=== PATIENT | male | born 1960 | race Caucasian/White ===

== ENCOUNTER 2019-05-29 21:54 | Inpatient (IN) ==
[2019-05-30] MEDS ORDERED: Ondansetron ODT 4 MG TAB.RAPDIS SL PRN (01:28)
[2019-05-30] MEDS ORDERED: Acetaminophen 325 MG TABLET PO PRN (01:28)
[2019-05-30] MEDS ORDERED: Naloxone 0.4 MG/ML INJ IVP PRN (01:28)
[2019-05-30] MEDS ORDERED: Dextrose Gel 15 GM/37.5 ML TUBE PO PRN ×2 (01:36)
[2019-05-30] MEDS ORDERED: D5% in Water 1,000 ML IVC PRN (01:36)
[2019-05-30] MEDS ORDERED: *HR* Dextrose 50 % in Water (Syg) 50 ML SYRINGE IVP PRN (01:36)
[2019-05-30 02:45] LABS: Basophils % 0.5 %; Eosinophils % 0.2 %; Hematocrit 46.2 % (37.5-50.1); Hemoglobin 14.8 g/dL (12.9-16.9); Immature Granulocytes % 0.7 % (0-4); Immature Platelets 3.8 % (1.1-6.1); Lymphocytes # 1.8 K/mcL (0.6-4.6); Lymphocytes % 21.2 %; Mean Corpuscular Hemoglobin 27.4 pg (28.0-33.3); Mean Corpuscular Volume 85.4 fL (83.0-100.0); Mean Platelet Volume 10.6 fL (9.4-12.4); Monocytes # 1.3 K/mcL (0.0-1.3); Monocytes % 15.1 %; Neutrophils # 5.3 K/mcL (1.6-8.9); Platelet Count 268 K/mcL (140-400); Red Blood Count 5.41 M/mcL (4.19-5.50); Red Cell Distribution Width 14.5 % (11.5-14.5); Segmented Neutrophils % 62.3 %; White Blood Count 8.5 K/mcL (4.3-11.1)
[2019-05-30 03:02] LABS: Alanine Aminotransferase 32 Units/L (7-52); Albumin 3.4 g/dL (3.5-5.7); Alkaline Phosphatase 65 Units/L (34-104); Aspartate Amino Transferase 22 Units/L (13-39); BUN/Creatinine Ratio 24 (6-26); Bilirubin,Total 0.4 mg/dL (0.3-1.0); Blood Urea Nitrogen 27 mg/dL (6-20); Calcium 8.4 mg/dL (8.6-10.3); Carbon Dioxide 31 mEq/L (23-29); Chloride 102 mEq/L (98-107); Globulin 3.4 g/dL (2.4-3.5); Glucose 106 mg/dL (70-105); Magnesium 1.7 mg/dL (1.6-2.6); Osmolality,Calculated 294 (280-300); Potassium 4.2 mEq/L (3.5-5.1); Sodium 139 mEq/L (136-145); Total Protein 6.8 g/dL (6.4-8.9); eGFR For African Americans > 60 (> 60); eGFR For Non-African Americans > 60 (> 60)
[2019-05-30] MEDS: *HR* Heparin 5,000 UNIT/ML VIAL SQ SCH ×2 (05:15→17:23)
[2019-05-30] MEDS ORDERED: Cefepime HCl 1,000 MG in Water for inj. (sterile) 10 ML IVP SCH (06:00)
[2019-05-30] MEDS ORDERED: Insulin LISPRO 300 UNITS/3 ML VIAL SQ SCH ×2 (07:30→21:00)
[2019-05-30] MEDS ORDERED: Lactulose Oral Soln 20 GM/30 ML UDC PO PRN (07:43)
[2019-05-30] MEDS ORDERED: D5% in 0.9% NACL 1,000 ML IVC SCH (07:45)
[2019-05-30] MEDS ORDERED: Clindamycin 600 MG/50 ML 600 MG/50 ML IV.SOLN IVPB SCH (08:00)
[2019-05-30] MEDS: Insulin LISPRO 300 UNITS/3 ML VIAL SQ SCH ×4 (08:45→19:36)
[2019-05-30] MEDS: lamoTRIgine 100 MG TABLET PO SCH ×3 (08:46→21:48)
[2019-05-30] MEDS: Sennosides 8.6 MG TABLET PO SCH ×3 (08:46→21:47)
[2019-05-30] MEDS: Baclofen 10 MG TABLET PO SCH ×4 (08:46→21:48)
[2019-05-30] MEDS: Ipratropium/Albuterol Neb 3 ML IH SCH ×5 (09:55→23:07)
[2019-05-30 10:02] LABS: ABG Base Excess 7 mEq/L (-2 to 3); ABG HCO3 33 mEq/L (21-27); ABG Oxygen Saturation 95 % (95-98); ABG PCO2 53 mmHg (35-45); ABG PO2 78 mmHg (85-104); ABG TCO2 35 mEq/L (20-26); Blood Gas Modality ASSIST CONTROL
[2019-05-30] MEDS: MetroNIDAZOLE 500 MG/100 ML 500 MG/100 ML BAG IVPB SCH ×2 (13:17→21:47)
[2019-05-30] MEDS ORDERED: MOM Conc 10 ML UD.LIQ PO PRN (15:30)
[2019-05-30] MEDS: Cefepime HCl 2,000 MG in Water for inj. (sterile) 20 ML IVP SCH ×2 (15:49→23:55)
[2019-05-30] MEDS: Docusate Oral Soln 100 MG/10 ML UDC PO SCH (21:47)
[2019-05-31 01:43] LABS: Basophils % 0.7 %; Eosinophils % 0.7 %; Immature Granulocytes % 0.5 % (0-4); Lymphocytes # 1.9 K/mcL (0.6-4.6); Lymphocytes % 31.3 %; Mean Corpuscular HGB Conc 31.8 g/dL (31.6-35.5); Mean Corpuscular Hemoglobin 26.9 pg (28.0-33.3); Mean Corpuscular Volume 84.5 fL (83.0-100.0); Mean Platelet Volume 10.1 fL (9.4-12.4); Monocytes # 0.9 K/mcL (0.0-1.3); Monocytes % 15.6 %; Neutrophils # 3.1 K/mcL (1.6-8.9); Platelet Count 320 K/mcL (140-400); Red Blood Count 5.21 M/mcL (4.19-5.50); Red Cell Distribution Width 14.6 % (11.5-14.5); Segmented Neutrophils % 51.2 %
[2019-05-31 02:03] LABS: BUN/Creatinine Ratio 32 (6-26); Blood Urea Nitrogen 26 mg/dL (6-20); Calcium 8.9 mg/dL (8.6-10.3); Carbon Dioxide 30 mEq/L (23-29); Chloride 103 mEq/L (98-107); Glucose 143 mg/dL (70-105); Magnesium 1.9 mg/dL (1.6-2.6); Osmolality,Calculated 295 (280-300); Phosphorous 2.7 mg/dL (2.7-4.5); Potassium 4.2 mEq/L (3.5-5.1); Sodium 139 mEq/L (136-145); eGFR For African Americans > 60 (> 60); eGFR For Non-African Americans > 60 (> 60)
[2019-05-31] MEDS: Ipratropium/Albuterol Neb 3 ML IH SCH ×5 (04:13→20:51)
[2019-05-31] MEDS: *HR* Heparin 5,000 UNIT/ML VIAL SQ SCH ×2 (04:35→17:18)
[2019-05-31] MEDS: MetroNIDAZOLE 500 MG/100 ML 500 MG/100 ML BAG IVPB SCH ×3 (04:35→22:31)
[2019-05-31] MEDS: Insulin LISPRO 300 UNITS/3 ML VIAL SQ SCH ×4 (07:21→22:30)
[2019-05-31] MEDS: Cefepime HCl 2,000 MG in Water for inj. (sterile) 20 ML IVP SCH ×2 (09:29→15:43)
[2019-05-31] MEDS: Cholecalciferol (D-3) 1,000 UNIT (25MCG) TABLET PO SCH (09:30)
[2019-05-31] MEDS: Docusate Oral Soln 100 MG/10 ML UDC PO SCH ×2 (09:30→22:30)
[2019-05-31] MEDS: Baclofen 10 MG TABLET PO SCH ×3 (09:30→22:30)
[2019-05-31] MEDS: lamoTRIgine 100 MG TABLET PO SCH ×2 (09:30→22:30)
[2019-05-31] MEDS: Sennosides 8.6 MG TABLET PO SCH ×2 (09:30→22:30)
[2019-05-31] MEDS: Clotrimazole 1% CRM 15 GM TUBE TP SCH ×2 (13:58→18:43)
[2019-05-31] MEDS ORDERED: Lactulose Oral Soln 20 GM/30 ML UDC PO PRN (14:55)
[2019-06-01] MEDS: Ipratropium/Albuterol Neb 3 ML IH SCH ×4 (00:12→11:24)
[2019-06-01] MEDS: Cefepime HCl 2,000 MG in Water for inj. (sterile) 20 ML IVP SCH ×2 (00:20→09:06)
[2019-06-01 01:55] LABS: BUN/Creatinine Ratio 31 (6-26); Blood Urea Nitrogen 25 mg/dL (6-20); Calcium 8.9 mg/dL (8.6-10.3); Carbon Dioxide 29 mEq/L (23-29); Chloride 104 mEq/L (98-107); Glucose 118 mg/dL (70-105); Magnesium 1.9 mg/dL (1.6-2.6); Osmolality,Calculated 293 (280-300); Phosphorous 2.7 mg/dL (2.7-4.5); Potassium 4.1 mEq/L (3.5-5.1); Sodium 139 mEq/L (136-145); eGFR For African Americans > 60 (> 60); eGFR For Non-African Americans > 60 (> 60)
[2019-06-01] MEDS: *HR* Heparin 5,000 UNIT/ML VIAL SQ SCH (05:37)
[2019-06-01] MEDS: MetroNIDAZOLE 500 MG/100 ML 500 MG/100 ML BAG IVPB SCH ×2 (05:37→11:13)
[2019-06-01] MEDS: lamoTRIgine 100 MG TABLET PO SCH (09:06)
[2019-06-01] MEDS: Cholecalciferol (D-3) 1,000 UNIT (25MCG) TABLET PO SCH (09:06)
[2019-06-01] MEDS: Docusate Oral Soln 100 MG/10 ML UDC PO SCH (09:06)
[2019-06-01] MEDS: Baclofen 10 MG TABLET PO SCH (09:07)
[2019-06-01] MEDS: Sennosides 8.6 MG TABLET PO SCH (09:07)
[2019-06-01] MEDS ORDERED: MethylPREDNISolone 40 MG/ML VIAL IVP SCH (09:32)
[2019-06-01] MEDS: Insulin LISPRO 300 UNITS/3 ML VIAL SQ SCH ×2 (09:39→11:14)
[2019-06-01] MEDS: Clotrimazole 1% CRM 15 GM TUBE TP SCH (09:47)
[2019-06-01 11:02] VITALS: BP 178/104
== END 2019-06-01 16:37 | DRG 178 ==
LOC: 2NENU → SUATTDRO 05-30 13:26
PROVIDERS: ADMIT Internal Medicine; ATTEND Internal Medicine

== ENCOUNTER 2019-07-18 17:52 | Inpatient (IN) ==
[~2019-07-18 17:52] MED LIST: Aminoglycoside Consult 1 EACH MC ONE
[2019-07-18] MEDS ORDERED: Naloxone 0.4 MG/ML INJ IVP PRN (21:16)
[2019-07-18] MEDS ORDERED: Ondansetron 4 MG/2 ML VIAL IVP PRN (21:16)
[2019-07-18] MEDS ORDERED: D5% in Water 1,000 ML IVC PRN (21:22)
[2019-07-18] MEDS: Norepinephrine 4 MG in 0.9 % Sodium Chloride 250 ML IVC SCH (21:22)
[2019-07-18] MEDS ORDERED: *HR* Dextrose 50 % in Water (Syg) 50 ML SYRINGE IVP PRN (21:22)
[2019-07-18] MEDS ORDERED: Dextrose Gel 15 GM/37.5 ML TUBE PO PRN ×2 (21:22)
[2019-07-18] MEDS ORDERED: 0.9 % Sodium Chloride 1,000 ML IVC SCH (21:30)
[2019-07-18] MEDS: Azithromycin 500 MG in 0.9 % Sodium Chloride 250 ML IVPB SCH (21:52)
[2019-07-18 21:57] LABS: ABG Base Excess 8 mEq/L (-2 to 3); ABG HCO3 31 mEq/L (21-27); ABG Oxygen Saturation 96 % (95-98); ABG PCO2 36 mmHg (35-45); ABG PH 7.54 pH Units (7.32-7.45); ABG PO2 68 mmHg (85-104); ABG TCO2 32 mEq/L (20-26); Blood Gas Modality AF; Blood Gas VT 600 cc
[2019-07-18] MEDS ORDERED: Isovue-370 500 ML BOTTLE IVP ONE (22:57)
[2019-07-18] MEDS: FentaNYL (PF) 1,000 MCG in 0.9 % Sodium Chloride 80 ML IVC SCH (23:02)
[2019-07-18] MEDS: Ipratropium/Albuterol Neb 3 ML IH SCH (23:23)
[2019-07-19] MEDS: Insulin LISPRO 300 UNITS/3 ML VIAL SQ SCH ×4 (00:38→18:12)
[2019-07-19] MEDS: MethylPREDNISolone 40 MG/ML VIAL IVP SCH ×4 (00:39→18:12)
[2019-07-19] MEDS: Cefepime HCl 2,000 MG in 0.9 % Sodium Chloride Mini Bag 100 ML IVPB SCH ×3 (00:39→16:36)
[2019-07-19 01:10] LABS: Adenovirus Not Detected (Not Detect); Bordetella Pertussis Not Detected (Not Detect); Chlamydophila pneumoniae Not Detected (Not Detect); Coronavirus 229E Not Detected (Not Detect); Coronavirus HKU1 Not Detected (Not Detect); Coronavirus NL63 Not Detected (Not Detect); Coronavirus OC43 Not Detected (Not Detect); Human Metapneumovirus Not Detected (Not Detect); Human Rhinovirus/Enterovirus Not Detected (Not Detect); Influenza A Subtype 2009 H1 Not Detected (Not Detect); Influenza B Not Detected (Not Detect); Mycoplasma pneumoniae Not Detected (Not Detect); Parainfluenza Virus 1 Not Detected (Not Detect); Parainfluenza Virus 2 Not Detected (Not Detect); Parainfluenza Virus 3 Not Detected (Not Detect); Parainfluenza Virus 4 Not Detected (Not Detect); Respiratory Syncytial Virus Not Detected (Not Detect)
[2019-07-19] MEDS: Ipratropium/Albuterol Neb 3 ML IH SCH ×6 (03:28→23:20)
[2019-07-19 03:32] LABS: Basophils % 0.2 %; Eosinophils % 0.4 %; Hematocrit 38.8 % (37.5-50.1); Hemoglobin 11.3 g/dL (12.9-16.9); Immature Granulocytes % 0.4 % (0-4); Lymphocytes # 1.1 K/mcL (0.6-4.6); Lymphocytes % 9.4 %; Mean Corpuscular HGB Conc 29.1 g/dL (31.6-35.5); Mean Corpuscular Hemoglobin 26.7 pg (28.0-33.3); Mean Corpuscular Volume 91.7 fL (83.0-100.0); Mean Platelet Volume 10.8 fL (9.4-12.4); Monocytes # 0.4 K/mcL (0.0-1.3); Monocytes % 3.7 %; Neutrophils # 9.6 K/mcL (1.6-8.9); Platelet Count 298 K/mcL (140-400); Red Blood Count 4.23 M/mcL (4.19-5.50); Red Cell Distribution Width 15.8 % (11.5-14.5); Segmented Neutrophils % 85.9 %; White Blood Count 11.2 K/mcL (4.3-11.1)
[2019-07-19 03:33] LABS: INR 1.3; Prothrombin Time 15.2 Seconds (9.4-12.1)
[2019-07-19 03:35] LABS: Activated Partial Thrombo Time 32.5 Seconds (26.0-36.0)
[2019-07-19 03:49] LABS: Alanine Aminotransferase 27 Units/L (7-52); Albumin 2.7 g/dL (3.5-5.7); Albumin/Globulin Ratio 0.9 (1.1-2.2); Alkaline Phosphatase 33 Units/L (34-104); Aspartate Amino Transferase 24 Units/L (13-39); BUN/Creatinine Ratio 40 (6-26); Bilirubin,Total 0.5 mg/dL (0.3-1.0); Blood Urea Nitrogen 28 mg/dL (6-20); Calcium 7.8 mg/dL (8.6-10.3); Carbon Dioxide 30 mEq/L (23-29); Chloride 113 mEq/L (98-107); Globulin 2.9 g/dL (2.4-3.5); Glucose 167 mg/dL (70-105); Osmolality,Calculated 311 (280-300); Sodium 146 mEq/L (136-145); Total Protein 5.6 g/dL (6.4-8.9); eGFR For African Americans > 60 (> 60); eGFR For Non-African Americans > 60 (> 60)
[2019-07-19 04:36] LABS: ABG Base Excess 6 mEq/L (-2 to 3); ABG HCO3 31 mEq/L (21-27); ABG Oxygen Saturation 96 % (95-98); ABG PCO2 47 mmHg (35-45); ABG PH 7.43 pH Units (7.32-7.45); ABG PO2 80 mmHg (85-104); ABG TCO2 33 mEq/L (20-26); Blood Gas Modality AF; Blood Gas VT 500 cc
[2019-07-19] MEDS ORDERED: *HR* Heparin 5,000 UNIT/ML VIAL IVP PRN ×2 (06:30)
[2019-07-19] MEDS ORDERED: *HR* Heparin 5,000 UNIT/ML VIAL IVP ONE (06:30)
[2019-07-19] MEDS ORDERED: Heparin 25,000 UNIT/250 ML D5W 25,000 UNIT/250 ML IV.SOLN IVC SCH (06:30)
[2019-07-19] MEDS ORDERED: Bisacodyl 10 MG RECTAL SUPPOSITORY RC ONE (09:21)
[2019-07-19] MEDS ORDERED: CLEAR EYES NATURAL TEARS 15 ML BOTTLE BOTH EYES PRN (10:50)
[2019-07-19] MEDS: Apixaban 5 MG TABLET PO SCH ×2 (11:24→19:44)
[2019-07-19] MEDS: lamoTRIgine 100 MG TABLET GTUBE SCH ×2 (11:24→19:44)
[2019-07-19] MEDS: Pantoprazole 40 MG VIAL IVP SCH (14:15)
[2019-07-19] MEDS: Chlorhexidine Rinse 15 ML MOUTHWASH MM SCH ×2 (14:15→19:44)
[2019-07-19] MEDS: CLEAR EYES NATURAL TEARS 15 ML BOTTLE BOTH EYES SCH ×3 (14:15→19:44)
[2019-07-19] MEDS ORDERED: Chlorhexidine Rinse 15 ML MOUTHWASH MM SCH (21:00)
[2019-07-19] MEDS: Azithromycin 500 MG in 0.9 % Sodium Chloride 250 ML IVPB SCH (21:37)
[2019-07-19] MEDS: Norepinephrine 4 MG in 0.9 % Sodium Chloride 250 ML IVC SCH (21:38)
[2019-07-20] MEDS: MethylPREDNISolone 40 MG/ML VIAL IVP SCH ×5 (00:31→23:59)
[2019-07-20] MEDS: Cefepime HCl 2,000 MG in 0.9 % Sodium Chloride Mini Bag 100 ML IVPB SCH ×4 (00:31→23:59)
[2019-07-20] MEDS: Insulin LISPRO 300 UNITS/3 ML VIAL SQ SCH ×4 (00:31→16:59)
[2019-07-20] MEDS: CLEAR EYES NATURAL TEARS 15 ML BOTTLE BOTH EYES SCH ×5 (00:32→16:20)
[2019-07-20] MEDS: Ipratropium/Albuterol Neb 3 ML IH SCH ×6 (03:33→23:41)
[2019-07-20 04:50] LABS: Hematocrit 38.4 % (37.5-50.1); Hemoglobin 11.8 g/dL (12.9-16.9); Mean Corpuscular HGB Conc 30.7 g/dL (31.6-35.5); Mean Corpuscular Hemoglobin 27.4 pg (28.0-33.3); Mean Corpuscular Volume 89.1 fL (83.0-100.0); Mean Platelet Volume 10.8 fL (9.4-12.4); Platelet Count 257 K/mcL (140-400); Red Blood Count 4.31 M/mcL (4.19-5.50); Red Cell Distribution Width 15.1 % (11.5-14.5); White Blood Count 8.1 K/mcL (4.3-11.1)
[2019-07-20 04:51] LABS: Immature Granulocytes % 0.4 % (0-4); Lymphocytes # 0.8 K/mcL (0.6-4.6); Monocytes # 0.3 K/mcL (0.0-1.3); Monocytes % 3.6 %
[2019-07-20 04:52] LABS: INR 1.1; Prothrombin Time 12.7 Seconds (9.4-12.1)
[2019-07-20 04:55] LABS: Activated Partial Thrombo Time 31.2 Seconds (26.0-36.0)
[2019-07-20 05:05] LABS: ABG Base Excess 3 mEq/L (-2 to 3); ABG HCO3 30 mEq/L (21-27); ABG Oxygen Saturation 98 % (95-98); ABG PCO2 53 mmHg (35-45); ABG PH 7.36 pH Units (7.32-7.45); ABG PO2 104 mmHg (85-104); ABG TCO2 32 mEq/L (20-26); Blood Gas Modality ASSIST CONTROL; Blood Gas VT 500 cc
[2019-07-20 05:06] LABS: Alanine Aminotransferase 26 Units/L (7-52); Alkaline Phosphatase 34 Units/L (34-104); Aspartate Amino Transferase 18 Units/L (13-39); BUN/Creatinine Ratio 57 (6-26); Bilirubin,Total 0.3 mg/dL (0.3-1.0); Blood Urea Nitrogen 30 mg/dL (6-20); Calcium 8.4 mg/dL (8.6-10.3); Carbon Dioxide 27 mEq/L (23-29); Chloride 110 mEq/L (98-107); Glucose 186 mg/dL (70-105); Osmolality,Calculated 309 (280-300); Potassium 3.7 mEq/L (3.5-5.1); Sodium 144 mEq/L (136-145); eGFR For African Americans > 60 (> 60); eGFR For Non-African Americans > 60 (> 60)
[2019-07-20] MEDS ORDERED: Potassium Chloride Elixir 20 MEQ/15 ML UDC GTUBE ONE (07:18)
[2019-07-20] MEDS ORDERED: *HR* Propofol 1,000 MG/100 ML BOTTLE IVC ONE (07:50)
[2019-07-20] MEDS ORDERED: Chlorhexidine Rinse 15 ML MOUTHWASH ONE (07:50)
[2019-07-20] MEDS ORDERED: MethylPREDNISolone 40 MG/ML VIAL ONE (07:50)
[2019-07-20] MEDS ORDERED: lamoTRIgine 100 MG TABLET ONE (07:50)
[2019-07-20] MEDS ORDERED: Ipratropium/Albuterol Neb 3 ML ONE ×2 (07:50→15:25)
[2019-07-20] MEDS ORDERED: Pantoprazole 40 MG VIAL ONE (07:50)
[2019-07-20] MEDS ORDERED: Potassium Chloride Elixir 20 MEQ/15 ML UDC ONE (07:50)
[2019-07-20] MEDS ORDERED: Apixaban 5 MG TABLET ONE (07:50)
[2019-07-20] MEDS ORDERED: 0.9 % Sodium Chloride (Mini-Bag +) 100 ML IVBAG ONE (07:50)
[2019-07-20] MEDS: FentaNYL (PF) 1,000 MCG in 0.9 % Sodium Chloride 80 ML IVC SCH (10:25)
[2019-07-20] MEDS: Pantoprazole 40 MG VIAL IVP SCH (16:17)
[2019-07-20] MEDS: lamoTRIgine 100 MG TABLET GTUBE SCH (16:17)
[2019-07-20] MEDS: Apixaban 5 MG TABLET PO SCH (16:17)
[2019-07-20] MEDS: Chlorhexidine Rinse 15 ML MOUTHWASH MM SCH (16:17)
[2019-07-20] MEDS ORDERED: *HR* Heparin 5,000 UNIT/ML VIAL IVP PRN ×4 (17:40→21:00)
[2019-07-20] MEDS ORDERED: Benzocaine 20% 12 APPL GEL..GRAM. TP PRN (18:40)
[2019-07-20] MEDS: D5% in 0.45% NACL w KCl 20 MEQ/1,000 ML MLS IVC SCH (18:49)
[2019-07-20 20:08] LABS: Hematocrit 40.1 % (37.5-50.1); Hemoglobin 12.2 g/dL (12.9-16.9); Mean Corpuscular HGB Conc 30.4 g/dL (31.6-35.5); Mean Corpuscular Hemoglobin 27.1 pg (28.0-33.3); Mean Corpuscular Volume 89.1 fL (83.0-100.0); Mean Platelet Volume 11.2 fL (9.4-12.4); Platelet Count 304 K/mcL (140-400); Red Cell Distribution Width 15.2 % (11.5-14.5)
[2019-07-20 20:12] LABS: Heparin anti-factor XA UFH 0.44 IU/mL (0.30-0.70); INR 1.1; Prothrombin Time 12.3 Seconds (9.4-12.1)
[2019-07-20] MEDS ORDERED: *HR* Heparin 5,000 UNIT/ML VIAL IVP ONE (21:00)
[2019-07-20] MEDS ORDERED: Heparin 25,000 UNIT/250 ML D5W 25,000 UNIT/250 ML IV.SOLN IVC SCH ×2 (21:00)
[2019-07-20] MEDS: Azithromycin 500 MG in 0.9 % Sodium Chloride 250 ML IVPB SCH (21:48)
[2019-07-21] MEDS: Insulin LISPRO 300 UNITS/3 ML VIAL SQ SCH ×4 (00:09→17:49)
[2019-07-21] MEDS: Ipratropium/Albuterol Neb 3 ML IH SCH ×5 (04:20→19:36)
[2019-07-21 04:44] LABS: Hematocrit 38.3 % (37.5-50.1); Hemoglobin 11.9 g/dL (12.9-16.9); Immature Granulocytes % 0.5 % (0-4); Lymphocytes # 0.5 K/mcL (0.6-4.6); Lymphocytes % 5.3 %; Mean Corpuscular HGB Conc 31.1 g/dL (31.6-35.5); Mean Corpuscular Hemoglobin 27.6 pg (28.0-33.3); Mean Corpuscular Volume 88.9 fL (83.0-100.0); Mean Platelet Volume 11.5 fL (9.4-12.4); Monocytes # 0.4 K/mcL (0.0-1.3); Monocytes % 4.2 %; Platelet Count 277 K/mcL (140-400); Red Blood Count 4.31 M/mcL (4.19-5.50); Red Cell Distribution Width 15.3 % (11.5-14.5)
[2019-07-21 04:45] LABS: INR 1.2; Prothrombin Time 13.9 Seconds (9.4-12.1)
[2019-07-21 04:55] LABS: Magnesium 1.8 mg/dL (1.6-2.6); Phosphorous 2.1 mg/dL (2.7-4.5)
[2019-07-21 04:56] LABS: Alanine Aminotransferase 23 Units/L (7-52); Albumin 2.8 g/dL (3.5-5.7); Alkaline Phosphatase 32 Units/L (34-104); Aspartate Amino Transferase 15 Units/L (13-39); BUN/Creatinine Ratio 48 (6-26); Bilirubin,Total 0.4 mg/dL (0.3-1.0); Blood Urea Nitrogen 28 mg/dL (6-20); Calcium 8.2 mg/dL (8.6-10.3); Carbon Dioxide 29 mEq/L (23-29); Chloride 110 mEq/L (98-107); Globulin 2.8 g/dL (2.4-3.5); Glucose 193 mg/dL (70-105); Osmolality,Calculated 305 (280-300); Potassium 4.1 mEq/L (3.5-5.1); Sodium 142 mEq/L (136-145); Total Protein 5.6 g/dL (6.4-8.9); eGFR For African Americans > 60 (> 60); eGFR For Non-African Americans > 60 (> 60)
[2019-07-21 05:01] LABS: Activated Partial Thrombo Time 188.9 Seconds (26.0-36.0)
[2019-07-21] MEDS: Dexmedetomidine HCl 400 MCG/100 ML MLS IVC SCH ×2 (06:29→08:23)
[2019-07-21] MEDS: MethylPREDNISolone 40 MG/ML VIAL IVP SCH ×2 (06:30→17:49)
[2019-07-21] MEDS: Pantoprazole 40 MG VIAL IVP SCH (08:05)
[2019-07-21] MEDS: Cefepime HCl 2,000 MG in 0.9 % Sodium Chloride Mini Bag 100 ML IVPB SCH ×2 (08:05→15:41)
[2019-07-21] MEDS: D5% in 0.45% NACL w KCl 20 MEQ/1,000 ML MLS IVC SCH (08:05)
[2019-07-21] MEDS: Benzocaine 20% 12 APPL GEL..GRAM. TP PRN ×2 (09:00→11:49)
[2019-07-21] MEDS ORDERED: Naloxone 0.4 MG/ML INJ IVP PRN (09:26)
[2019-07-21] MEDS ORDERED: *HR* Heparin 5,000 UNIT/ML VIAL IVP PRN ×2 (09:26)
[2019-07-21] MEDS ORDERED: D5% in 0.45% NACL w KCl 20 MEQ/1,000 ML MLS IVC SCH (09:26)
[2019-07-21] MEDS ORDERED: Dextrose Gel 15 GM/37.5 ML TUBE PO PRN ×2 (09:26)
[2019-07-21] MEDS ORDERED: D5% in Water 1,000 ML IVC PRN (09:26)
[2019-07-21] MEDS ORDERED: Ondansetron 4 MG/2 ML VIAL IVP PRN (09:26)
[2019-07-21] MEDS ORDERED: *HR* Dextrose 50 % in Water (Syg) 50 ML SYRINGE IVP PRN (09:26)
[2019-07-21] MEDS: Heparin 25,000 UNIT/250 ML D5W 25,000 UNIT/250 ML IV.SOLN IVC SCH ×2 (10:34→20:42)
[2019-07-21] MEDS ORDERED: MethylPREDNISolone 40 MG/ML VIAL IVP SCH (18:00)
[2019-07-21] MEDS: Azithromycin 500 MG in 0.9 % Sodium Chloride 250 ML IVPB SCH (22:00)
[2019-07-22] MEDS: Insulin LISPRO 300 UNITS/3 ML VIAL SQ SCH ×4 (00:02→18:10)
[2019-07-22] MEDS: Ipratropium/Albuterol Neb 3 ML IH SCH ×7 (00:17→23:48)
[2019-07-22 02:22] LABS: Prothrombin Time 11.7 Seconds (9.4-12.1)
[2019-07-22 02:25] LABS: Activated Partial Thrombo Time 33.7 Seconds (26.0-36.0)
[2019-07-22 02:38] LABS: Basophils % 0.1 %; Hematocrit 41.2 % (37.5-50.1); Hemoglobin 12.8 g/dL (12.9-16.9); Immature Granulocytes % 0.6 % (0-4); Lymphocytes # 0.8 K/mcL (0.6-4.6); Lymphocytes % 7.6 %; Mean Corpuscular HGB Conc 31.1 g/dL (31.6-35.5); Mean Corpuscular Hemoglobin 27.6 pg (28.0-33.3); Mean Corpuscular Volume 88.8 fL (83.0-100.0); Monocytes # 0.5 K/mcL (0.0-1.3); Monocytes % 4.3 %; Neutrophils # 9.7 K/mcL (1.6-8.9); Platelet Count 273 K/mcL (140-400); Red Blood Count 4.64 M/mcL (4.19-5.50); Red Cell Distribution Width 15.6 % (11.5-14.5); Segmented Neutrophils % 87.4 %; White Blood Count 11.1 K/mcL (4.3-11.1)
[2019-07-22 02:41] LABS: Alanine Aminotransferase 27 Units/L (7-52); Alkaline Phosphatase 39 Units/L (34-104); Aspartate Amino Transferase 15 Units/L (13-39); BUN/Creatinine Ratio 50 (6-26); Bilirubin,Total 0.3 mg/dL (0.3-1.0); Blood Urea Nitrogen 24 mg/dL (6-20); Calcium 8.6 mg/dL (8.6-10.3); Carbon Dioxide 27 mEq/L (23-29); Chloride 107 mEq/L (98-107); Glucose 157 mg/dL (70-105); Osmolality,Calculated 293 (280-300); Potassium 4.3 mEq/L (3.5-5.1); Sodium 138 mEq/L (136-145); eGFR For African Americans > 60 (> 60); eGFR For Non-African Americans > 60 (> 60)
[2019-07-22] MEDS: MethylPREDNISolone 40 MG/ML VIAL IVP SCH (06:00)
[2019-07-22] MEDS: Cefepime HCl 2,000 MG in 0.9 % Sodium Chloride Mini Bag 100 ML IVPB SCH ×3 (07:51→16:01)
[2019-07-22] MEDS ORDERED: Pantoprazole 40 MG VIAL IVP SCH (09:00)
[2019-07-22] MEDS ORDERED: Acetaminophen 325 MG TABLET PO PRN (17:36)
[2019-07-22] MEDS: Lactulose Oral Soln 20 GM/30 ML UDC PO SCH (21:09)
[2019-07-22] MEDS: Apixaban 5 MG TABLET PO SCH (21:10)
[2019-07-22] MEDS: Baclofen 10 MG TABLET PO SCH (21:10)
[2019-07-22] MEDS: Sennosides 8.6 MG TABLET PO SCH (21:10)
[2019-07-22] MEDS: Azithromycin 500 MG in 0.9 % Sodium Chloride 250 ML IVPB SCH (21:11)
[2019-07-23] MEDS: Insulin LISPRO 300 UNITS/3 ML VIAL SQ SCH ×5 (00:32→23:45)
[2019-07-23] MEDS: Cefepime HCl 2,000 MG in 0.9 % Sodium Chloride Mini Bag 100 ML IVPB SCH ×4 (00:33→23:48)
[2019-07-23] MEDS: Ipratropium/Albuterol Neb 3 ML IH SCH ×5 (03:47→20:39)
[2019-07-23 05:47] LABS: Hematocrit 39.3 % (37.5-50.1); Hemoglobin 12.2 g/dL (12.9-16.9); Mean Corpuscular Hemoglobin 27.7 pg (28.0-33.3); Mean Corpuscular Volume 89.3 fL (83.0-100.0); Mean Platelet Volume 11.4 fL (9.4-12.4); Platelet Count 236 K/mcL (140-400); Red Cell Distribution Width 15.8 % (11.5-14.5); White Blood Count 8.4 K/mcL (4.3-11.1)
[2019-07-23 06:20] LABS: BUN/Creatinine Ratio 45 (6-26); Blood Urea Nitrogen 25 mg/dL (6-20); Calcium 8.4 mg/dL (8.6-10.3); Carbon Dioxide 28 mEq/L (23-29); Chloride 105 mEq/L (98-107); Glucose 128 mg/dL (70-105); Osmolality,Calculated 288 (280-300); Potassium 4.2 mEq/L (3.5-5.1); Sodium 136 mEq/L (136-145); eGFR For African Americans > 60 (> 60); eGFR For Non-African Americans > 60 (> 60)
[2019-07-23] MEDS ORDERED: [UNRECOGNIZED DRUG - OTHER] TP SCH (09:00)
[2019-07-23] MEDS ORDERED: 0.9 % Sodium Chloride Mini Bag 100 ML ONE (09:14)
[2019-07-23] MEDS: Apixaban 5 MG TABLET PO SCH ×2 (09:50→22:10)
[2019-07-23] MEDS: Baclofen 10 MG TABLET PO SCH ×3 (09:51→22:09)
[2019-07-23] MEDS: Cholecalciferol (D-3) 1,000 UNIT (25MCG) TABLET PO SCH (09:51)
[2019-07-23] MEDS: Sennosides 8.6 MG TABLET PO SCH ×2 (09:51→22:09)
[2019-07-23] MEDS: MOMETASONE FUROATE TP SCH (09:51)
[2019-07-23] MEDS: Lactulose Oral Soln 20 GM/30 ML UDC PO SCH ×2 (09:51→22:10)
[2019-07-23] MEDS: Multivit/Ca/Min/Fe/FA 1 TAB TABLET PO SCH (09:51)
[2019-07-23] MEDS: lisinopriL 10 MG TABLET PO SCH (09:52)
[2019-07-23] MEDS: predniSONE 20 MG TABLET PO SCH (09:52)
[2019-07-23] MEDS: Ketoconazole 2% CRM 15 GM TUBE TP SCH (10:00)
[2019-07-23] MEDS: Azithromycin 500 MG in 0.9 % Sodium Chloride 250 ML IVPB SCH (22:10)
[2019-07-24] MEDS: Ipratropium/Albuterol Neb 3 ML IH SCH ×4 (00:04→11:15)
[2019-07-24 02:10] LABS: Hematocrit 41.1 % (37.5-50.1); Hemoglobin 12.7 g/dL (12.9-16.9); Mean Corpuscular HGB Conc 30.9 g/dL (31.6-35.5); Mean Corpuscular Hemoglobin 27.1 pg (28.0-33.3); Mean Corpuscular Volume 87.8 fL (83.0-100.0); Mean Platelet Volume 11.4 fL (9.4-12.4); Platelet Count 282 K/mcL (140-400); Red Blood Count 4.68 M/mcL (4.19-5.50); Red Cell Distribution Width 15.9 % (11.5-14.5); White Blood Count 7.9 K/mcL (4.3-11.1)
[2019-07-24 02:26] LABS: BUN/Creatinine Ratio 33 (6-26); Blood Urea Nitrogen 17 mg/dL (6-20); Calcium 8.7 mg/dL (8.6-10.3); Carbon Dioxide 32 mEq/L (23-29); Chloride 104 mEq/L (98-107); Glucose 117 mg/dL (70-105); Osmolality,Calculated 287 (280-300); Potassium 4.3 mEq/L (3.5-5.1); Sodium 137 mEq/L (136-145); eGFR For African Americans > 60 (> 60); eGFR For Non-African Americans > 60 (> 60)
[2019-07-24] MEDS: Insulin LISPRO 300 UNITS/3 ML VIAL SQ SCH ×2 (06:06→11:48)
[2019-07-24] MEDS: Cefepime HCl 2,000 MG in 0.9 % Sodium Chloride Mini Bag 100 ML IVPB SCH (08:51)
[2019-07-24] MEDS: predniSONE 20 MG TABLET PO SCH (08:54)
[2019-07-24] MEDS: lisinopriL 10 MG TABLET PO SCH (08:54)
[2019-07-24] MEDS: Multivit/Ca/Min/Fe/FA 1 TAB TABLET PO SCH (08:54)
[2019-07-24] MEDS: Baclofen 10 MG TABLET PO SCH (08:54)
[2019-07-24] MEDS: Sennosides 8.6 MG TABLET PO SCH (08:54)
[2019-07-24] MEDS: Cholecalciferol (D-3) 1,000 UNIT (25MCG) TABLET PO SCH (08:55)
[2019-07-24] MEDS: Apixaban 5 MG TABLET PO SCH (08:55)
[2019-07-24] MEDS: MOMETASONE FUROATE TP SCH (08:55)
[2019-07-24] MEDS: Lactulose Oral Soln 20 GM/30 ML UDC PO SCH (08:55)
[2019-07-24] MEDS: Ketoconazole 2% CRM 15 GM TUBE TP SCH (09:07)
[2019-07-24 11:01] VITALS: BP 145/94
== END 2019-07-24 12:48 | DRG 871 ==
LOC: ICNU → SUATTDRO 21:16 → 2ANU 07-21 21:10
PROVIDERS: ADMIT Pediatrics; ATTEND Internal Medicine

== ENCOUNTER 2019-07-30 20:45 | Inpatient (IN) ==
[2019-07-30] MEDS ORDERED: CLEAR EYES NATURAL TEARS 15 ML BOTTLE BOTH EYES PRN (22:14)
[2019-07-30] MEDS ORDERED: Naloxone 0.4 MG/ML INJ IVP PRN (22:14)
[2019-07-30] MEDS ORDERED: EPINEPHrine 1 MG in D5% in Water 250 ML IVC SCH (22:30)
[2019-07-30] MEDS ORDERED: Dexmedetomidine HCl 400 MCG/100 ML MLS IVC ONE (22:36)
[2019-07-30] MEDS ORDERED: Vasopressin 40 UNIT in D5% in Water 100 ML IVC SCH (22:45)
[2019-07-30] MEDS: Dexmedetomidine HCl 400 MCG/100 ML MLS IVC SCH (22:47)
[2019-07-30] MEDS: Chlorhexidine Rinse 15 ML MOUTHWASH MM SCH (22:48)
[2019-07-30] MEDS: FentaNYL (PF) 1,000 MCG in 0.9 % Sodium Chloride 80 ML IVC SCH (22:50)
[2019-07-30 22:57] LABS: Basophils % 0.1 %; Hematocrit 40.5 % (37.5-50.1); Hemoglobin 12.4 g/dL (12.9-16.9); Immature Granulocytes % 0.6 % (0-4); Lymphocytes # 1.8 K/mcL (0.6-4.6); Lymphocytes % 7.5 %; Mean Corpuscular HGB Conc 30.6 g/dL (31.6-35.5); Mean Corpuscular Hemoglobin 27.1 pg (28.0-33.3); Mean Corpuscular Volume 88.6 fL (83.0-100.0); Mean Platelet Volume 10.7 fL (9.4-12.4); Monocytes # 2.1 K/mcL (0.0-1.3); Monocytes % 9.1 %; Neutrophils # 19.3 K/mcL (1.6-8.9); Platelet Count 347 K/mcL (140-400); Red Blood Count 4.57 M/mcL (4.19-5.50); Red Cell Distribution Width 16.3 % (11.5-14.5); Segmented Neutrophils % 82.7 %; White Blood Count 23.3 K/mcL (4.3-11.1)
[2019-07-30] MEDS ORDERED: Vancomycin (wt based) 1,000 MG VIAL IVPB SCH (23:00)
[2019-07-30] MEDS ORDERED: 0.9 % Sodium Chloride 1,000 ML IV SCH (23:00)
[2019-07-30] MEDS: MetroNIDAZOLE 500 MG/100 ML 500 MG/100 ML BAG IVPB SCH (23:01)
[2019-07-30] MEDS: Norepinephrine 4 MG in 0.9 % Sodium Chloride 250 ML IVC SCH (23:02)
[2019-07-30] MEDS ORDERED: Isovue-370 500 ML BOTTLE IVP ONE ×2 (23:08→23:14)
[2019-07-30] MEDS ORDERED: Dextrose Gel 15 GM/37.5 ML TUBE PO PRN ×2 (23:13)
[2019-07-30] MEDS ORDERED: *HR* Dextrose 50 % in Water (Syg) 50 ML SYRINGE IVP PRN (23:13)
[2019-07-30] MEDS ORDERED: D5% in Water 1,000 ML IVC PRN (23:13)
[2019-07-30 23:20] LABS: BUN/Creatinine Ratio 30 (6-26); Blood Urea Nitrogen 35 mg/dL (6-20); Calcium 7.6 mg/dL (8.6-10.3); Carbon Dioxide 26 mEq/L (23-29); Chloride 109 mEq/L (98-107); Glucose 247 mg/dL (70-105); Osmolality,Calculated 304 (280-300); Potassium 3.9 mEq/L (3.5-5.1); Sodium 139 mEq/L (136-145); eGFR For African Americans > 60 (> 60); eGFR For Non-African Americans > 60 (> 60)
[2019-07-31] LABS: ABG Base Excess 4 mEq/L (-2 to 3); ABG HCO3 28 mEq/L (21-27); ABG Oxygen Saturation 96 % (95-98); ABG PCO2 39 mmHg (35-45); ABG PH 7.46 pH Units (7.32-7.45); ABG PO2 78 mmHg (85-104); ABG TCO2 30 mEq/L (20-26); Blood Gas Modality ASSIST CONTROL; Blood Gas VT 500 cc
[2019-07-31] MEDS: Acetaminophen 325 MG TABLET PO PRN ×2 (00:11→11:36)
[2019-07-31] MEDS: CLEAR EYES NATURAL TEARS 15 ML BOTTLE BOTH EYES SCH ×6 (00:11→21:25)
[2019-07-31 00:24] LABS: Bilirubin,Urine Small (Negative); Blood,Urine Large (Negative); Clarity,Urine Turbid (Clear); Color,Urine Dark Yellow (Yellow); Glucose,Urine (UA) 100 mg/dL (Normal); Ketones,Urine Trace mg/dL (Negative); Leukocyte Esterase,Urine Small (Negative); Nitrite,Urine Negative (Negative); Protein,Urine 100 mg/dL (Neg-Trace); Specific Gravity,Urine 1.028 (1.010-1.025); Urobilinogen,Urine Normal (Normal)
[2019-07-31 00:27] LABS: Protein/Creatinine Ratio,Urine 1.29 mg/mg (0.00-0.20)
[2019-07-31 00:29] LABS: Bacteria,Urine None Seen per hpf (None-Few); RBC,Urine 0-3 per hpf (0-3); Squamous Epithelial Cell,Urine Many per lpf (None-Few); WBC,Urine 15-30 per hpf (0-3)
[2019-07-31 00:40] LABS: Calcium Oxalate Crystals,Urine Present
[2019-07-31 00:41] LABS: Hyaline Casts,Urine Few per lpf (None-Few)
[2019-07-31] MEDS: Calcium Gluconate 1gm/50mL 1 GM/50 ML BAG IVPB SCH ×3 (02:04→03:37)
[2019-07-31] MEDS: Lactulose Oral Soln 20 GM/30 ML UDC GTUBE SCH ×3 (02:18→21:34)
[2019-07-31 02:33] LABS: Troponin I 0.07 ng/mL (< 0.04)
[2019-07-31] MEDS: FentaNYL (PF) 1,000 MCG in 0.9 % Sodium Chloride 80 ML IVC SCH (02:52)
[2019-07-31] MEDS: Norepinephrine 4 MG in 0.9 % Sodium Chloride 250 ML IVC SCH (03:54)
[2019-07-31 04:08] LABS: Basophils % 0.2 %; Hematocrit 40.1 % (37.5-50.1); Hemoglobin 12.2 g/dL (12.9-16.9); Immature Granulocytes % 0.5 % (0-4); Lymphocytes # 2.6 K/mcL (0.6-4.6); Lymphocytes % 19.2 %; Mean Corpuscular HGB Conc 30.4 g/dL (31.6-35.5); Mean Corpuscular Hemoglobin 26.9 pg (28.0-33.3); Mean Corpuscular Volume 88.5 fL (83.0-100.0); Mean Platelet Volume 10.8 fL (9.4-12.4); Monocytes % 15.2 %; Neutrophils # 8.6 K/mcL (1.6-8.9); Platelet Count 276 K/mcL (140-400); Red Blood Count 4.53 M/mcL (4.19-5.50); Red Cell Distribution Width 16.5 % (11.5-14.5); Segmented Neutrophils % 64.9 %; White Blood Count 13.3 K/mcL (4.3-11.1)
[2019-07-31 04:26] LABS: Alanine Aminotransferase 27 Units/L (7-52); Albumin 2.7 g/dL (3.5-5.7); Albumin/Globulin Ratio 1.1 (1.1-2.2); Alkaline Phosphatase 33 Units/L (34-104); Aspartate Amino Transferase 23 Units/L (13-39); BUN/Creatinine Ratio 35 (6-26); Bilirubin,Total 0.6 mg/dL (0.3-1.0); Blood Urea Nitrogen 32 mg/dL (6-20); Calcium 8.3 mg/dL (8.6-10.3); Carbon Dioxide 27 mEq/L (23-29); Chloride 111 mEq/L (98-107); Globulin 2.5 g/dL (2.4-3.5); Glucose 171 mg/dL (70-105); Osmolality,Calculated 305 (280-300); Potassium 3.5 mEq/L (3.5-5.1); Sodium 142 mEq/L (136-145); Total Protein 5.2 g/dL (6.4-8.9); eGFR For African Americans > 60 (> 60); eGFR For Non-African Americans > 60 (> 60)
[2019-07-31 04:45] LABS: ABG Base Excess 4 mEq/L (-2 to 3); ABG HCO3 28 mEq/L (21-27); ABG Oxygen Saturation 96 % (95-98); ABG PCO2 40 mmHg (35-45); ABG PH 7.46 pH Units (7.32-7.45); ABG PO2 74 mmHg (85-104); ABG TCO2 29 mEq/L (20-26); Blood Gas Modality ASSIST CONTROL; Blood Gas VT 500 cc
[2019-07-31] MEDS ORDERED: Cefepime HCl 1,000 MG in 0.9 % Sodium Chloride Mini Bag 100 ML IVPB SCH (06:00)
[2019-07-31] MEDS: Dexmedetomidine HCl 400 MCG/100 ML MLS IVC SCH ×3 (06:17→21:34)
[2019-07-31] MEDS: Famotidine 20 MG/2 ML VIAL IVP SCH ×2 (06:24→17:12)
[2019-07-31] MEDS: Chlorhexidine Rinse 15 ML MOUTHWASH MM SCH ×2 (08:19→21:33)
[2019-07-31] MEDS: MetroNIDAZOLE 500 MG/100 ML 500 MG/100 ML BAG IVPB SCH ×2 (08:20→15:03)
[2019-07-31 09:11] LABS: Adenovirus Not Detected (Not Detect); Bordetella Pertussis Not Detected (Not Detect); Chlamydophila pneumoniae Not Detected (Not Detect); Coronavirus 229E Not Detected (Not Detect); Coronavirus HKU1 Not Detected (Not Detect); Coronavirus NL63 Not Detected (Not Detect); Coronavirus OC43 Not Detected (Not Detect); Human Metapneumovirus Not Detected (Not Detect); Human Rhinovirus/Enterovirus Not Detected (Not Detect); Influenza A Subtype 2009 H1 Not Detected (Not Detect); Influenza B Not Detected (Not Detect); Mycoplasma pneumoniae Not Detected (Not Detect); Parainfluenza Virus 1 Not Detected (Not Detect); Parainfluenza Virus 2 Not Detected (Not Detect); Parainfluenza Virus 3 Not Detected (Not Detect); Parainfluenza Virus 4 Not Detected (Not Detect); Respiratory Syncytial Virus Not Detected (Not Detect)
[2019-07-31] MEDS: *HR* Heparin 5,000 UNIT/ML VIAL SQ SCH ×2 (11:47→17:11)
[2019-07-31] MEDS ORDERED: Dexmedetomidine HCl 400 MCG/100 ML MLS IVC ONE (12:47)
[2019-07-31 13:02] LABS: Bilirubin,Urine Small (Negative); Blood,Urine Small (Negative); Clarity,Urine Clear (Clear); Color,Urine Dark Yellow (Yellow); Glucose,Urine (UA) Normal (Normal); Ketones,Urine Trace mg/dL (Negative); Leukocyte Esterase,Urine Trace (Negative); Nitrite,Urine Negative (Negative); Protein,Urine 30 mg/dL (Neg-Trace); Specific Gravity,Urine > 1.030 (1.010-1.025); Urobilinogen,Urine Normal (Normal)
[2019-07-31 13:05] LABS: Bacteria,Urine None Seen per hpf (None-Few); Hyaline Casts,Urine Moderate per lpf (None-Few); Squamous Epithelial Cell,Urine Many per lpf (None-Few)
[2019-07-31] MEDS: Cefepime HCl 2,000 MG in Water for inj. (sterile) 20 ML IVP SCH ×2 (13:53→21:35)
[2019-07-31] MEDS: lamoTRIgine 100 MG TABLET PO SCH (21:34)
[2019-07-31] MEDS: Docusate Oral Soln 100 MG/10 ML UDC GTUBE SCH (21:35)
[2019-08-01] MEDS: Insulin LISPRO 300 UNITS/3 ML VIAL SQ SCH ×5 (00:01→23:11)
[2019-08-01] MEDS: CLEAR EYES NATURAL TEARS 15 ML BOTTLE BOTH EYES SCH ×7 (00:01→23:12)
[2019-08-01] MEDS: MetroNIDAZOLE 500 MG/100 ML 500 MG/100 ML BAG IVPB SCH ×2 (00:04→08:22)
[2019-08-01] MEDS: FentaNYL (PF) 1,000 MCG in 0.9 % Sodium Chloride 80 ML IVC SCH ×3 (00:08→23:13)
[2019-08-01 03:42] LABS: Basophils % 0.2 %; Eosinophils % 0.3 %; Hematocrit 35.4 % (37.5-50.1); Hemoglobin 11.3 g/dL (12.9-16.9); Immature Granulocytes % 0.3 % (0-4); Lymphocytes # 2.2 K/mcL (0.6-4.6); Lymphocytes % 16.8 %; Mean Corpuscular HGB Conc 31.9 g/dL (31.6-35.5); Mean Corpuscular Hemoglobin 28.2 pg (28.0-33.3); Mean Corpuscular Volume 88.3 fL (83.0-100.0); Mean Platelet Volume 10.8 fL (9.4-12.4); Monocytes # 0.8 K/mcL (0.0-1.3); Neutrophils # 10.2 K/mcL (1.6-8.9); Platelet Count 178 K/mcL (140-400); Red Blood Count 4.01 M/mcL (4.19-5.50); Red Cell Distribution Width 16.6 % (11.5-14.5); Segmented Neutrophils % 76.4 %; White Blood Count 13.3 K/mcL (4.3-11.1)
[2019-08-01 04:01] LABS: ABG Base Excess 5 mEq/L (-2 to 3); ABG HCO3 29 mEq/L (21-27); ABG Oxygen Saturation 96 % (95-98); ABG PCO2 39 mmHg (35-45); ABG PH 7.47 pH Units (7.32-7.45); ABG PO2 76 mmHg (85-104); ABG TCO2 30 mEq/L (20-26); Blood Gas Modality ASSIST CONTROL; Blood Gas VT 500 cc
[2019-08-01 04:02] LABS: Alanine Aminotransferase 32 Units/L (7-52); Albumin 2.7 g/dL (3.5-5.7); Albumin/Globulin Ratio 1.2 (1.1-2.2); Alkaline Phosphatase 30 Units/L (34-104); Aspartate Amino Transferase 32 Units/L (13-39); BUN/Creatinine Ratio 50 (6-26); Bilirubin,Total 0.8 mg/dL (0.3-1.0); Blood Urea Nitrogen 33 mg/dL (6-20); Calcium 8.3 mg/dL (8.6-10.3); Carbon Dioxide 29 mEq/L (23-29); Chloride 108 mEq/L (98-107); Globulin 2.3 g/dL (2.4-3.5); Glucose 116 mg/dL (70-105); Osmolality,Calculated 300 (280-300); Potassium 3.6 mEq/L (3.5-5.1); Sodium 141 mEq/L (136-145); Vancomycin,Trough 12 mcg/mL (5-10); eGFR For African Americans > 60 (> 60); eGFR For Non-African Americans > 60 (> 60)
[2019-08-01] MEDS: Cefepime HCl 2,000 MG in Water for inj. (sterile) 20 ML IVP SCH (04:59)
[2019-08-01] MEDS: *HR* Heparin 5,000 UNIT/ML VIAL SQ SCH ×2 (05:04→16:57)
[2019-08-01] MEDS: Famotidine 20 MG/2 ML VIAL IVP SCH ×2 (05:06→16:57)
[2019-08-01] MEDS: Norepinephrine 4 MG in 0.9 % Sodium Chloride 250 ML IVC SCH (05:07)
[2019-08-01] MEDS: Dexmedetomidine HCl 400 MCG/100 ML MLS IVC SCH ×3 (05:15→20:25)
[2019-08-01] MEDS: lamoTRIgine 100 MG TABLET PO SCH ×2 (08:21→20:58)
[2019-08-01] MEDS: Docusate Oral Soln 100 MG/10 ML UDC GTUBE SCH ×2 (08:21→20:57)
[2019-08-01] MEDS: Lactulose Oral Soln 20 GM/30 ML UDC GTUBE SCH ×2 (08:21→20:57)
[2019-08-01] MEDS: Chlorhexidine Rinse 15 ML MOUTHWASH MM SCH ×2 (08:21→20:57)
[2019-08-01] MEDS: predniSONE 10 MG TABLET PO SCH (08:21)
[2019-08-01] MEDS ORDERED: Aminoglycoside Consult 1 EACH MC ONE (09:39)
[2019-08-01] MEDS: Meropenem 1,000 MG in 0.9 % Sodium Chloride Mini Bag 100 ML IVPB SCH ×2 (12:22→20:54)
[2019-08-02] MEDS: Dexmedetomidine HCl 400 MCG/100 ML MLS IVC SCH ×4 (03:19→23:33)
[2019-08-02] MEDS: CLEAR EYES NATURAL TEARS 15 ML BOTTLE BOTH EYES SCH ×6 (03:20→23:32)
[2019-08-02] MEDS: Meropenem 1,000 MG in 0.9 % Sodium Chloride Mini Bag 100 ML IVPB SCH ×3 (03:20→20:58)
[2019-08-02 03:27] LABS: Basophils % 0.1 %; Eosinophils # 0.1 K/mcL (0.0-0.6); Eosinophils % 1.4 %; Hematocrit 33.8 % (37.5-50.1); Hemoglobin 10.9 g/dL (12.9-16.9); Immature Granulocytes % 0.4 % (0-4); Lymphocytes # 1.4 K/mcL (0.6-4.6); Lymphocytes % 13.9 %; Mean Corpuscular HGB Conc 32.2 g/dL (31.6-35.5); Mean Corpuscular Hemoglobin 27.5 pg (28.0-33.3); Mean Corpuscular Volume 85.4 fL (83.0-100.0); Mean Platelet Volume 10.9 fL (9.4-12.4); Monocytes # 0.5 K/mcL (0.0-1.3); Monocytes % 4.5 %; Neutrophils # 8.1 K/mcL (1.6-8.9); Nucleated Red Blood Cells 0.2 /100 WBC (0); Platelet Count 142 K/mcL (140-400); Red Blood Count 3.96 M/mcL (4.19-5.50); Red Cell Distribution Width 16.2 % (11.5-14.5); Segmented Neutrophils % 79.7 %; White Blood Count 10.1 K/mcL (4.3-11.1)
[2019-08-02 03:45] LABS: Alanine Aminotransferase 29 Units/L (7-52); Albumin 2.7 g/dL (3.5-5.7); Albumin/Globulin Ratio 1.2 (1.1-2.2); Alkaline Phosphatase 35 Units/L (34-104); Aspartate Amino Transferase 25 Units/L (13-39); BUN/Creatinine Ratio 54 (6-26); Bilirubin,Total 0.8 mg/dL (0.3-1.0); Blood Urea Nitrogen 30 mg/dL (6-20); Calcium 8.4 mg/dL (8.6-10.3); Carbon Dioxide 28 mEq/L (23-29); Chloride 108 mEq/L (98-107); Globulin 2.2 g/dL (2.4-3.5); Glucose 124 mg/dL (70-105); Osmolality,Calculated 298 (280-300); Potassium 3.4 mEq/L (3.5-5.1); Sodium 140 mEq/L (136-145); Total Protein 4.9 g/dL (6.4-8.9); eGFR For African Americans > 60 (> 60); eGFR For Non-African Americans > 60 (> 60)
[2019-08-02 04:49] LABS: ABG Base Excess 5 mEq/L (-2 to 3); ABG HCO3 28 mEq/L (21-27); ABG Oxygen Saturation 97 % (95-98); ABG PCO2 35 mmHg (35-45); ABG PH 7.52 pH Units (7.32-7.45); ABG PO2 76 mmHg (85-104); ABG TCO2 29 mEq/L (20-26); Blood Gas Modality AF; Blood Gas VT 500 cc
[2019-08-02] MEDS: Insulin LISPRO 300 UNITS/3 ML VIAL SQ SCH ×4 (07:22→23:32)
[2019-08-02] MEDS: Famotidine 20 MG/2 ML VIAL IVP SCH ×2 (07:22→18:14)
[2019-08-02] MEDS: *HR* Heparin 5,000 UNIT/ML VIAL SQ SCH ×2 (07:22→18:14)
[2019-08-02] MEDS: predniSONE 10 MG TABLET PO SCH (08:53)
[2019-08-02] MEDS: Docusate Oral Soln 100 MG/10 ML UDC GTUBE SCH ×2 (08:53→21:10)
[2019-08-02] MEDS: Lactulose Oral Soln 20 GM/30 ML UDC GTUBE SCH ×2 (08:53→21:10)
[2019-08-02] MEDS: Chlorhexidine Rinse 15 ML MOUTHWASH MM SCH ×2 (08:53→21:14)
[2019-08-02] MEDS: lamoTRIgine 100 MG TABLET PO SCH ×2 (08:54→21:07)
[2019-08-02] MEDS ORDERED: Potassium Chloride 40 MEQ, Lidocaine 1% 2 ML in 0.9 % Sodium Chloride 500 ML IVPB ONE (10:52)
[2019-08-02] MEDS: FentaNYL (PF) 1,000 MCG in 0.9 % Sodium Chloride 80 ML IVC SCH (21:08)
[2019-08-02] MEDS: Norepinephrine 4 MG in 0.9 % Sodium Chloride 250 ML IVC SCH (22:48)
[2019-08-03 03:36] LABS: Basophils % 0.2 %; Eosinophils # 0.2 K/mcL (0.0-0.6); Eosinophils % 1.8 %; Hematocrit 36.1 % (37.5-50.1); Hemoglobin 11.4 g/dL (12.9-16.9); Immature Granulocytes % 0.5 % (0-4); Lymphocytes # 2.1 K/mcL (0.6-4.6); Lymphocytes % 19.2 %; Mean Corpuscular HGB Conc 31.6 g/dL (31.6-35.5); Mean Corpuscular Hemoglobin 27.6 pg (28.0-33.3); Mean Corpuscular Volume 87.4 fL (83.0-100.0); Mean Platelet Volume 11.4 fL (9.4-12.4); Monocytes # 0.5 K/mcL (0.0-1.3); Monocytes % 4.4 %; Neutrophils # 8.1 K/mcL (1.6-8.9); Platelet Count 171 K/mcL (140-400); Red Blood Count 4.13 M/mcL (4.19-5.50); Segmented Neutrophils % 73.9 %; White Blood Count 10.9 K/mcL (4.3-11.1)
[2019-08-03 03:56] LABS: Alanine Aminotransferase 30 Units/L (7-52); Albumin 2.8 g/dL (3.5-5.7); Albumin/Globulin Ratio 1.1 (1.1-2.2); Alkaline Phosphatase 41 Units/L (34-104); Aspartate Amino Transferase 22 Units/L (13-39); BUN/Creatinine Ratio 50 (6-26); Bilirubin,Total 0.6 mg/dL (0.3-1.0); Blood Urea Nitrogen 24 mg/dL (6-20); Calcium 8.3 mg/dL (8.6-10.3); Carbon Dioxide 26 mEq/L (23-29); Chloride 106 mEq/L (98-107); Globulin 2.5 g/dL (2.4-3.5); Glucose 133 mg/dL (70-105); Osmolality,Calculated 292 (280-300); Potassium 3.6 mEq/L (3.5-5.1); Sodium 138 mEq/L (136-145); Total Protein 5.3 g/dL (6.4-8.9); eGFR For African Americans > 60 (> 60); eGFR For Non-African Americans > 60 (> 60)
[2019-08-03] MEDS: Meropenem 1,000 MG in 0.9 % Sodium Chloride Mini Bag 100 ML IVPB SCH ×3 (04:09→20:26)
[2019-08-03] MEDS: CLEAR EYES NATURAL TEARS 15 ML BOTTLE BOTH EYES SCH ×6 (04:15→23:11)
[2019-08-03] MEDS: Insulin LISPRO 300 UNITS/3 ML VIAL SQ SCH ×4 (04:27→23:11)
[2019-08-03 04:35] LABS: ABG Base Excess 3 mEq/L (-2 to 3); ABG HCO3 27 mEq/L (21-27); ABG Oxygen Saturation 95 % (95-98); ABG PCO2 43 mmHg (35-45); ABG PH 7.42 pH Units (7.32-7.45); ABG PO2 77 mmHg (85-104); ABG TCO2 29 mEq/L (20-26); Blood Gas Modality VC; Blood Gas VT 500 cc
[2019-08-03] MEDS: *HR* Heparin 5,000 UNIT/ML VIAL SQ SCH ×2 (05:16→17:28)
[2019-08-03] MEDS: Famotidine 20 MG/2 ML VIAL IVP SCH ×2 (05:18→17:28)
[2019-08-03] MEDS: Dexmedetomidine HCl 400 MCG/100 ML MLS IVC SCH ×2 (06:37→13:25)
[2019-08-03] MEDS: Chlorhexidine Rinse 15 ML MOUTHWASH MM SCH ×2 (07:48→21:04)
[2019-08-03] MEDS: Lactulose Oral Soln 20 GM/30 ML UDC GTUBE SCH (07:48)
[2019-08-03] MEDS: predniSONE 10 MG TABLET PO SCH (07:48)
[2019-08-03] MEDS: lamoTRIgine 100 MG TABLET PO SCH ×2 (07:48→20:37)
[2019-08-03] MEDS: Docusate Oral Soln 100 MG/10 ML UDC GTUBE SCH ×2 (07:48→20:37)
[2019-08-03] MEDS: Metoclopramide 10 MG/2 ML VIAL IVP SCH ×3 (12:22→23:21)
[2019-08-03] MEDS: Norepinephrine 4 MG in 0.9 % Sodium Chloride 250 ML IVC SCH (22:13)
[2019-08-03] MEDS: FentaNYL (PF) 1,000 MCG in 0.9 % Sodium Chloride 80 ML IVC SCH (22:13)
[2019-08-04] MEDS: Dexmedetomidine HCl 400 MCG/100 ML MLS IVC SCH ×3 (02:00→14:22)
[2019-08-04] MEDS: Meropenem 1,000 MG in 0.9 % Sodium Chloride Mini Bag 100 ML IVPB SCH ×3 (04:22→19:50)
[2019-08-04] MEDS: CLEAR EYES NATURAL TEARS 15 ML BOTTLE BOTH EYES SCH ×2 (04:29→09:18)
[2019-08-04] MEDS: Famotidine 20 MG/2 ML VIAL IVP SCH ×2 (05:15→17:58)
[2019-08-04] MEDS: Metoclopramide 10 MG/2 ML VIAL IVP SCH ×4 (05:16→23:46)
[2019-08-04] MEDS: *HR* Heparin 5,000 UNIT/ML VIAL SQ SCH ×2 (05:18→17:58)
[2019-08-04] MEDS: Insulin LISPRO 300 UNITS/3 ML VIAL SQ SCH ×3 (05:22→18:00)
[2019-08-04] MEDS: Docusate Oral Soln 100 MG/10 ML UDC GTUBE SCH (09:18)
[2019-08-04] MEDS: lamoTRIgine 100 MG TABLET PO SCH (09:18)
[2019-08-04] MEDS: predniSONE 10 MG TABLET PO SCH (09:18)
[2019-08-04] MEDS ORDERED: Ipratropium/Albuterol Neb 3 ML IH PRN (10:11)
[2019-08-04] MEDS ORDERED: *HR* Dextrose 50 % in Water (Syg) 50 ML SYRINGE IVP PRN (10:11)
[2019-08-04] MEDS ORDERED: Naloxone 0.4 MG/ML INJ IVP PRN (10:11)
[2019-08-04] MEDS ORDERED: D5% in Water 1,000 ML IVC PRN (10:11)
[2019-08-04] MEDS ORDERED: Dextrose Gel 15 GM/37.5 ML TUBE PO PRN ×2 (10:11)
[2019-08-04] MEDS: Chlorhexidine Rinse 15 ML MOUTHWASH MM SCH (10:51)
[2019-08-04] MEDS: MethylPREDNISolone 40 MG/ML VIAL IVP SCH (11:24)
[2019-08-05] MEDS: Insulin LISPRO 300 UNITS/3 ML VIAL SQ SCH ×4 (00:47→17:55)
[2019-08-05] MEDS: Dexmedetomidine HCl 400 MCG/100 ML MLS IVC SCH ×5 (03:16→20:39)
[2019-08-05] MEDS: Meropenem 1,000 MG in 0.9 % Sodium Chloride Mini Bag 100 ML IVPB SCH ×2 (04:19→11:42)
[2019-08-05] MEDS: Famotidine 20 MG/2 ML VIAL IVP SCH ×2 (06:32→18:21)
[2019-08-05] MEDS: *HR* Heparin 5,000 UNIT/ML VIAL SQ SCH ×2 (06:32→18:26)
[2019-08-05] MEDS: MethylPREDNISolone 40 MG/ML VIAL IVP SCH (08:42)
[2019-08-05] MEDS: Metoclopramide 10 MG/2 ML VIAL IVP SCH ×3 (08:42→18:17)
[2019-08-05] MEDS: Baclofen 10 MG TABLET PO SCH ×3 (11:43→22:00)
[2019-08-05] MEDS: lamoTRIgine 100 MG TABLET PO SCH ×2 (11:43→22:00)
[2019-08-05] MEDS ORDERED: MetroNIDAZOLE 500 MG/100 ML 500 MG/100 ML BAG IVPB SCH (16:00)
[2019-08-05] MEDS: Cefepime HCl 2,000 MG in 0.9 % Sodium Chloride Mini Bag 100 ML IVPB SCH (18:26)
[2019-08-05] MEDS ORDERED: levETIRAcetam 250 MG TABLET PO SCH (21:00)
[2019-08-05] MEDS: metroNIDAZOLE 500 MG TABLET PO SCH ×2 (21:51→22:00)
[2019-08-05] MEDS: levETIRAcetam 500 MG/5 ML UDC PO SCH (22:00)
[2019-08-06] MEDS: Insulin LISPRO 300 UNITS/3 ML VIAL SQ SCH ×5 (01:03→22:38)
[2019-08-06] MEDS: Metoclopramide 10 MG/2 ML VIAL IVP SCH ×3 (01:11→15:14)
[2019-08-06] MEDS: Cefepime HCl 2,000 MG in 0.9 % Sodium Chloride Mini Bag 100 ML IVPB SCH ×2 (05:42→17:05)
[2019-08-06] MEDS: *HR* Heparin 5,000 UNIT/ML VIAL SQ SCH ×2 (05:43→17:04)
[2019-08-06] MEDS: Famotidine 20 MG/2 ML VIAL IVP SCH (05:43)
[2019-08-06 06:07] LABS: Hematocrit 35.4 % (37.5-50.1); Hemoglobin 11.4 g/dL (12.9-16.9); Mean Corpuscular HGB Conc 32.2 g/dL (31.6-35.5); Mean Corpuscular Hemoglobin 27.8 pg (28.0-33.3); Mean Corpuscular Volume 86.3 fL (83.0-100.0); Mean Platelet Volume 11.7 fL (9.4-12.4); Platelet Count 234 K/mcL (140-400); Red Cell Distribution Width 15.4 % (11.5-14.5); White Blood Count 7.4 K/mcL (4.3-11.1)
[2019-08-06 06:22] LABS: BUN/Creatinine Ratio 45 (6-26); Blood Urea Nitrogen 17 mg/dL (6-20); Calcium 8.9 mg/dL (8.6-10.3); Carbon Dioxide 30 mEq/L (23-29); Chloride 101 mEq/L (98-107); Glucose 148 mg/dL (70-105); Osmolality,Calculated 288 (280-300); Potassium 3.5 mEq/L (3.5-5.1); Sodium 137 mEq/L (136-145); eGFR For African Americans > 60 (> 60); eGFR For Non-African Americans > 60 (> 60)
[2019-08-06] MEDS: Baclofen 10 MG TABLET PO SCH ×3 (08:25→20:17)
[2019-08-06] MEDS: levETIRAcetam 500 MG/5 ML UDC PO SCH ×2 (08:25→20:17)
[2019-08-06] MEDS: lamoTRIgine 100 MG TABLET PO SCH ×2 (08:26→20:17)
[2019-08-06] MEDS: Dexmedetomidine HCl 400 MCG/100 ML MLS IVC SCH (08:26)
[2019-08-06] MEDS: metroNIDAZOLE 500 MG TABLET PO SCH ×3 (08:26→20:17)
[2019-08-06] MEDS ORDERED: predniSONE 10 MG TABLET PO SCH (09:00)
[2019-08-06] MEDS ORDERED: Bisacodyl 10 MG RECTAL SUPPOSITORY RC ONE (10:47)
[2019-08-06] MEDS ORDERED: *HR* Propofol 200 MG/20 ML VIAL IVP ONE (12:10)
[2019-08-06] MEDS ORDERED: Lidocaine 2% Syringe 100 MG/5 ML IV ONE (12:10)
[2019-08-06] MEDS: *HR* LORazepam 2 MG/ML VIAL IVP PRN (15:14)
[2019-08-06] MEDS: Metoclopramide 10 MG/10 ML UD.LIQ PO SCH (16:33)
[2019-08-06] MEDS: Famotidine 20 MG TABLET PO SCH (20:16)
[2019-08-06] MEDS: polyethylene glycoL 3350 17 GM POWD.PACK PO SCH (20:17)
[2019-08-07] MEDS: Metoclopramide 10 MG/10 ML UD.LIQ PO SCH ×5 (00:02→23:32)
[2019-08-07] MEDS: Dexmedetomidine HCl 400 MCG/100 ML MLS IVC SCH ×2 (02:52→03:38)
[2019-08-07] MEDS: *HR* Heparin 5,000 UNIT/ML VIAL SQ SCH ×2 (05:57→17:03)
[2019-08-07] MEDS: Cefepime HCl 2,000 MG in 0.9 % Sodium Chloride Mini Bag 100 ML IVPB SCH ×2 (05:57→17:01)
[2019-08-07] MEDS ORDERED: 0.9 % Sodium Chloride 250 ML ONE (08:39)
[2019-08-07] MEDS ORDERED: 0.9 % Sodium Chloride 1,000 ML ONE (08:54)
[2019-08-07] MEDS: Baclofen 10 MG TABLET PO SCH ×3 (09:24→20:10)
[2019-08-07] MEDS: levETIRAcetam 500 MG/5 ML UDC PO SCH ×2 (09:24→20:10)
[2019-08-07] MEDS: Famotidine 20 MG TABLET PO SCH ×2 (09:25→20:10)
[2019-08-07] MEDS: lamoTRIgine 100 MG TABLET PO SCH ×2 (09:25→20:10)
[2019-08-07] MEDS: polyethylene glycoL 3350 17 GM POWD.PACK PO SCH ×2 (09:26→20:11)
[2019-08-07] MEDS: Insulin LISPRO 300 UNITS/3 ML VIAL SQ SCH ×4 (09:27→20:41)
[2019-08-07] MEDS: metroNIDAZOLE 500 MG TABLET PO SCH ×3 (09:28→20:10)
[2019-08-07 10:04] LABS: BUN/Creatinine Ratio 35 (6-26); Blood Urea Nitrogen 19 mg/dL (6-20); Calcium 8.7 mg/dL (8.6-10.3); Carbon Dioxide 30 mEq/L (23-29); Chloride 104 mEq/L (98-107); Glucose 164 mg/dL (70-105); Osmolality,Calculated 294 (280-300); Potassium 3.6 mEq/L (3.5-5.1); Sodium 139 mEq/L (136-145); Troponin I < 0.03 ng/mL (< 0.04); eGFR For African Americans > 60 (> 60); eGFR For Non-African Americans > 60 (> 60)
[2019-08-07] MEDS ORDERED: Furosemide 20 MG/2 ML VIAL IVP ONE (14:00)
[2019-08-07] MEDS: Pantoprazole 40 MG VIAL IVP SCH (17:05)
[2019-08-07] MEDS ORDERED: *HR* Metoprolol 5 MG/5 ML VIAL IVP ONE (18:01)
[2019-08-07] MEDS ORDERED: Haloperidol Lactate 5 MG/ML VIAL IVP ONE (18:53)
[2019-08-07] MEDS ORDERED: Acetaminophen IV 1,000 MG/100 ML INFUS..BTL IVPB ONE (21:34)
[2019-08-07] MEDS: *HR* LORazepam 2 MG/ML VIAL IVP PRN (21:59)
[2019-08-08] MEDS: *HR* LORazepam 2 MG/ML VIAL IVP PRN ×2 (00:27→10:32)
[2019-08-08] MEDS: Cefepime HCl 2,000 MG in 0.9 % Sodium Chloride Mini Bag 100 ML IVPB SCH ×2 (05:34→16:55)
[2019-08-08] MEDS: Metoclopramide 10 MG/10 ML UD.LIQ PO SCH (05:35)
[2019-08-08] MEDS: *HR* Heparin 5,000 UNIT/ML VIAL SQ SCH ×2 (05:35→16:55)
[2019-08-08] MEDS: Pantoprazole 40 MG VIAL IVP SCH ×2 (05:52→16:55)
[2019-08-08] MEDS: Insulin LISPRO 300 UNITS/3 ML VIAL SQ SCH ×4 (07:35→23:12)
[2019-08-08] MEDS: polyethylene glycoL 3350 17 GM POWD.PACK PO SCH ×3 (08:00→23:14)
[2019-08-08] MEDS: Baclofen 10 MG TABLET PO SCH ×3 (08:00→22:47)
[2019-08-08] MEDS: lamoTRIgine 100 MG TABLET PO SCH ×2 (08:00→22:47)
[2019-08-08] MEDS: levETIRAcetam 500 MG/5 ML UDC PO SCH ×2 (08:00→22:47)
[2019-08-08] MEDS: metroNIDAZOLE 500 MG TABLET PO SCH ×3 (08:01→22:47)
[2019-08-08] MEDS: Famotidine 20 MG TABLET PO SCH ×2 (08:01→22:47)
[2019-08-08] MEDS ORDERED: Ipratropium 1 PUFF INHALER IH PRN (14:59)
[2019-08-08] MEDS ORDERED: Ipratropium/Albuterol Neb 3 ML IH SCH (16:00)
[2019-08-08] MEDS: predniSONE 10 MG TABLET PO SCH (16:53)
[2019-08-08] MEDS: Ipratropium 1 PUFF INHALER IH SCH ×2 (17:14→22:47)
[2019-08-08] MEDS ORDERED: Metoclopramide 10 MG/10 ML UD.LIQ PO SCH (18:00)
[2019-08-09] MEDS: Ipratropium 1 PUFF INHALER IH SCH ×4 (05:13→21:54)
[2019-08-09] MEDS: Cefepime HCl 2,000 MG in 0.9 % Sodium Chloride Mini Bag 100 ML IVPB SCH ×2 (05:15→18:04)
[2019-08-09] MEDS: Pantoprazole 40 MG VIAL IVP SCH ×2 (05:16→18:04)
[2019-08-09] MEDS: *HR* Heparin 5,000 UNIT/ML VIAL SQ SCH ×2 (05:16→18:05)
[2019-08-09] MEDS: lamoTRIgine 100 MG TABLET PO SCH ×2 (08:13→20:12)
[2019-08-09] MEDS: Insulin LISPRO 300 UNITS/3 ML VIAL SQ SCH ×4 (08:13→20:16)
[2019-08-09] MEDS: predniSONE 10 MG TABLET PO SCH (08:13)
[2019-08-09] MEDS: Baclofen 10 MG TABLET PO SCH ×3 (08:14→20:12)
[2019-08-09] MEDS: Famotidine 20 MG TABLET PO SCH ×2 (08:14→20:12)
[2019-08-09] MEDS: metroNIDAZOLE 500 MG TABLET PO SCH (08:14)
[2019-08-09] MEDS: levETIRAcetam 500 MG/5 ML UDC PO SCH ×2 (08:14→20:13)
[2019-08-09] MEDS: polyethylene glycoL 3350 17 GM POWD.PACK PO SCH ×2 (08:14→20:13)
[2019-08-09 13:28] LABS: BUN/Creatinine Ratio 27 (6-26); Blood Urea Nitrogen 11 mg/dL (6-20); C-Reactive Protein 9 mg/L (Less than 10); Calcium 9.6 mg/dL (8.6-10.3); Carbon Dioxide 35 mEq/L (23-29); Chloride 100 mEq/L (98-107); Glucose 169 mg/dL (70-105); Osmolality,Calculated 293 (280-300); Potassium 4.4 mEq/L (3.5-5.1); Sodium 140 mEq/L (136-145); eGFR For African Americans > 60 (> 60); eGFR For Non-African Americans > 60 (> 60)
[2019-08-09 14:11] LABS: Basophils % 0.3 %; Eosinophils % 0.3 %; Hemoglobin 12.4 g/dL (12.9-16.9); Immature Granulocytes % 0.6 % (0-4); Lymphocytes # 1.2 K/mcL (0.6-4.6); Lymphocytes % 18.3 %; Mean Corpuscular HGB Conc 30.2 g/dL (31.6-35.5); Mean Corpuscular Hemoglobin 27.1 pg (28.0-33.3); Mean Corpuscular Volume 89.7 fL (83.0-100.0); Monocytes # 0.5 K/mcL (0.0-1.3); Monocytes % 7.3 %; Neutrophils # 4.8 K/mcL (1.6-8.9); Platelet Count 330 K/mcL (140-400); Red Blood Count 4.57 M/mcL (4.19-5.50); Red Cell Distribution Width 16.5 % (11.5-14.5); Segmented Neutrophils % 73.2 %; White Blood Count 6.6 K/mcL (4.3-11.1)
[2019-08-09] MEDS: MetroNIDAZOLE 500 MG/100 ML 500 MG/100 ML BAG IVPB SCH ×2 (16:02→23:20)
[2019-08-10 03:49] LABS: Hematocrit 38.3 % (37.5-50.1); Hemoglobin 11.5 g/dL (12.9-16.9); Mean Corpuscular Hemoglobin 26.9 pg (28.0-33.3); Mean Corpuscular Volume 89.5 fL (83.0-100.0); Mean Platelet Volume 11.3 fL (9.4-12.4); Platelet Count 332 K/mcL (140-400); Red Blood Count 4.28 M/mcL (4.19-5.50); Red Cell Distribution Width 16.6 % (11.5-14.5); White Blood Count 6.2 K/mcL (4.3-11.1)
[2019-08-10] MEDS: Ipratropium 1 PUFF INHALER IH SCH ×4 (04:01→20:55)
[2019-08-10 04:08] LABS: BUN/Creatinine Ratio 29 (6-26); Blood Urea Nitrogen 12 mg/dL (6-20); Calcium 9.5 mg/dL (8.6-10.3); Carbon Dioxide 34 mEq/L (23-29); Chloride 99 mEq/L (98-107); Glucose 116 mg/dL (70-105); Magnesium 1.5 mg/dL (1.6-2.6); Osmolality,Calculated 291 (280-300); Potassium 3.6 mEq/L (3.5-5.1); Sodium 140 mEq/L (136-145); eGFR For African Americans > 60 (> 60); eGFR For Non-African Americans > 60 (> 60)
[2019-08-10] MEDS: Cefepime HCl 2,000 MG in 0.9 % Sodium Chloride Mini Bag 100 ML IVPB SCH ×2 (05:07→17:16)
[2019-08-10] MEDS: Pantoprazole 40 MG VIAL IVP SCH ×2 (05:08→17:16)
[2019-08-10] MEDS: *HR* Heparin 5,000 UNIT/ML VIAL SQ SCH ×2 (05:08→17:17)
[2019-08-10] MEDS ORDERED: *HR* LORazepam 2 MG/ML VIAL IVP ONE (05:29)
[2019-08-10] MEDS: Dexmedetomidine HCl 400 MCG/100 ML MLS IVC SCH (07:18)
[2019-08-10] MEDS ORDERED: 0.9 % Sodium Chloride 500 ML IVC ONE (08:11)
[2019-08-10] MEDS: Insulin LISPRO 300 UNITS/3 ML VIAL SQ SCH ×4 (10:13→20:35)
[2019-08-10] MEDS: lamoTRIgine 100 MG TABLET PO SCH ×2 (10:39→20:35)
[2019-08-10] MEDS: predniSONE 10 MG TABLET PO SCH (10:40)
[2019-08-10] MEDS: Baclofen 10 MG TABLET PO SCH ×3 (10:40→20:35)
[2019-08-10] MEDS: Famotidine 20 MG TABLET PO SCH ×2 (10:40→20:35)
[2019-08-10] MEDS: polyethylene glycoL 3350 17 GM POWD.PACK PO SCH ×2 (10:40→20:36)
[2019-08-10] MEDS: levETIRAcetam 500 MG/5 ML UDC PO SCH ×2 (10:40→20:35)
[2019-08-10] MEDS: MetroNIDAZOLE 500 MG/100 ML 500 MG/100 ML BAG IVPB SCH ×2 (11:30→16:16)
[2019-08-10] MEDS: Erythromycin Susp 200 MG/5 ML UDC PO SCH (15:07)
[2019-08-10] MEDS ORDERED: *HR* OxyCODONE Oral Soln 5 MG/5 ML UD.LIQ PO PRN (18:54)
[2019-08-11] MEDS: MetroNIDAZOLE 500 MG/100 ML 500 MG/100 ML BAG IVPB SCH ×4 (00:38→23:52)
[2019-08-11] MEDS: Erythromycin Susp 200 MG/5 ML UDC PO SCH ×4 (00:42→23:52)
[2019-08-11] MEDS: Ipratropium 1 PUFF INHALER IH SCH ×4 (04:21→22:25)
[2019-08-11] MEDS: Pantoprazole 40 MG VIAL IVP SCH ×2 (05:47→16:55)
[2019-08-11] MEDS: *HR* Heparin 5,000 UNIT/ML VIAL SQ SCH ×2 (05:47→16:55)
[2019-08-11] MEDS: Cefepime HCl 2,000 MG in 0.9 % Sodium Chloride Mini Bag 100 ML IVPB SCH ×2 (05:48→17:36)
[2019-08-11] MEDS: polyethylene glycoL 3350 17 GM POWD.PACK PO SCH ×2 (07:54→21:15)
[2019-08-11] MEDS: Famotidine 20 MG TABLET PO SCH ×2 (07:56→21:15)
[2019-08-11] MEDS: Baclofen 10 MG TABLET PO SCH ×3 (07:56→21:15)
[2019-08-11] MEDS: lamoTRIgine 100 MG TABLET PO SCH ×2 (07:56→21:15)
[2019-08-11] MEDS: predniSONE 10 MG TABLET PO SCH (07:56)
[2019-08-11] MEDS: levETIRAcetam 500 MG/5 ML UDC PO SCH ×2 (07:56→21:15)
[2019-08-11] MEDS: Insulin LISPRO 300 UNITS/3 ML VIAL SQ SCH ×4 (07:57→21:06)
[2019-08-11] MEDS ORDERED: Isovue-370 500 ML BOTTLE IVP ONE (20:40)
[2019-08-12] MEDS: Ipratropium 1 PUFF INHALER IH SCH ×5 (03:59→22:03)
[2019-08-12] MEDS: Erythromycin Susp 200 MG/5 ML UDC PO SCH ×3 (06:47→21:20)
[2019-08-12] MEDS: Cefepime HCl 2,000 MG in 0.9 % Sodium Chloride Mini Bag 100 ML IVPB SCH ×2 (06:47→18:13)
[2019-08-12] MEDS: *HR* Heparin 5,000 UNIT/ML VIAL SQ SCH (06:47)
[2019-08-12] MEDS: Pantoprazole 40 MG VIAL IVP SCH ×2 (06:47→17:04)
[2019-08-12 08:49] LABS: BUN/Creatinine Ratio 30 (6-26); Blood Urea Nitrogen 12 mg/dL (6-20); Calcium 9.3 mg/dL (8.6-10.3); Carbon Dioxide 33 mEq/L (23-29); Chloride 100 mEq/L (98-107); Glucose 137 mg/dL (70-105); Osmolality,Calculated 288 (280-300); Potassium 3.9 mEq/L (3.5-5.1); Sodium 138 mEq/L (136-145); eGFR For African Americans > 60 (> 60); eGFR For Non-African Americans > 60 (> 60)
[2019-08-12] MEDS: predniSONE 10 MG TABLET PO SCH (08:58)
[2019-08-12] MEDS: Baclofen 10 MG TABLET PO SCH ×3 (08:58→21:17)
[2019-08-12] MEDS: lamoTRIgine 100 MG TABLET PO SCH ×2 (08:58→21:17)
[2019-08-12] MEDS: Famotidine 20 MG TABLET PO SCH ×2 (08:58→21:17)
[2019-08-12] MEDS: levETIRAcetam 500 MG/5 ML UDC PO SCH ×2 (08:58→21:17)
[2019-08-12] MEDS: Insulin LISPRO 300 UNITS/3 ML VIAL SQ SCH ×4 (08:58→21:35)
[2019-08-12] MEDS: polyethylene glycoL 3350 17 GM POWD.PACK PO SCH ×2 (08:58→21:16)
[2019-08-12] MEDS: MetroNIDAZOLE 500 MG/100 ML 500 MG/100 ML BAG IVPB SCH ×3 (08:58→23:17)
[2019-08-12] MEDS ORDERED: *HR* Heparin 5,000 UNIT/ML VIAL IVP ONE (11:57)
[2019-08-12 13:06] LABS: Heparin anti-factor XA UFH < 0.04 IU/mL (0.30-0.70)
[2019-08-12 13:07] LABS: INR 1.1
[2019-08-12] MEDS: Heparin 25,000 UNIT/250 ML D5W 25,000 UNIT/250 ML IV.SOLN IVC SCH (14:25)
[2019-08-13] MEDS: *HR* LORazepam 2 MG/ML VIAL IVP PRN (01:06)
[2019-08-13] MEDS: Ipratropium 1 PUFF INHALER IH SCH ×4 (04:01→21:50)
[2019-08-13] MEDS: Heparin 25,000 UNIT/250 ML D5W 25,000 UNIT/250 ML IV.SOLN IVC SCH (05:51)
[2019-08-13] MEDS: Cefepime HCl 2,000 MG in 0.9 % Sodium Chloride Mini Bag 100 ML IVPB SCH ×2 (05:52→17:39)
[2019-08-13] MEDS: Pantoprazole 40 MG VIAL IVP SCH (05:53)
[2019-08-13] MEDS: Erythromycin Susp 200 MG/5 ML UDC PO SCH (05:54)
[2019-08-13] MEDS: Insulin LISPRO 300 UNITS/3 ML VIAL SQ SCH ×4 (07:23→21:06)
[2019-08-13] MEDS: MetroNIDAZOLE 500 MG/100 ML 500 MG/100 ML BAG IVPB SCH ×2 (08:28→15:52)
[2019-08-13] MEDS: lamoTRIgine 100 MG TABLET PO SCH ×2 (09:51→20:57)
[2019-08-13] MEDS: levETIRAcetam 500 MG/5 ML UDC PO SCH ×2 (09:51→20:57)
[2019-08-13] MEDS: predniSONE 10 MG TABLET PO SCH (09:51)
[2019-08-14] MEDS: Ipratropium 1 PUFF INHALER IH SCH ×4 (03:16→22:13)
[2019-08-14] MEDS: Cefepime HCl 2,000 MG in 0.9 % Sodium Chloride Mini Bag 100 ML IVPB SCH ×2 (05:06→20:00)
[2019-08-14] MEDS ORDERED: *HR* Metoprolol 5 MG/5 ML VIAL IVP ONE (06:53)
[2019-08-14] MEDS: Insulin LISPRO 300 UNITS/3 ML VIAL SQ SCH ×4 (08:04→21:25)
[2019-08-14] MEDS: levETIRAcetam 500 MG/5 ML UDC PO SCH ×2 (08:04→22:48)
[2019-08-14] MEDS: lamoTRIgine 100 MG TABLET PO SCH ×2 (08:04→21:36)
[2019-08-14] MEDS: MetroNIDAZOLE 500 MG/100 ML 500 MG/100 ML BAG IVPB SCH ×3 (08:05→16:36)
[2019-08-14] MEDS: predniSONE 10 MG TABLET PO SCH (08:05)
[2019-08-14] MEDS: Heparin 25,000 UNIT/250 ML D5W 25,000 UNIT/250 ML IV.SOLN IVC SCH (09:41)
[2019-08-14] MEDS: *HR* Heparin 5,000 UNIT/ML VIAL IVP PRN (21:38)
[2019-08-15] MEDS: MetroNIDAZOLE 500 MG/100 ML 500 MG/100 ML BAG IVPB SCH ×3 (00:33→16:27)
[2019-08-15] MEDS: Ipratropium 1 PUFF INHALER IH SCH ×4 (04:17→22:43)
[2019-08-15] MEDS: *HR* Heparin 5,000 UNIT/ML VIAL IVP PRN ×3 (05:17→20:13)
[2019-08-15] MEDS: Cefepime HCl 2,000 MG in 0.9 % Sodium Chloride Mini Bag 100 ML IVPB SCH ×2 (05:18→20:03)
[2019-08-15] MEDS ORDERED: 0.9 % Sodium Chloride 500 ML IVC ONE (07:39)
[2019-08-15] MEDS: lamoTRIgine 100 MG TABLET PO SCH ×2 (08:36→20:14)
[2019-08-15] MEDS: Insulin LISPRO 300 UNITS/3 ML VIAL SQ SCH ×4 (08:36→21:53)
[2019-08-15] MEDS: predniSONE 10 MG TABLET PO SCH (08:37)
[2019-08-15] MEDS: Heparin 25,000 UNIT/250 ML D5W 25,000 UNIT/250 ML IV.SOLN IVC SCH ×3 (09:10→21:57)
[2019-08-15 09:13] LABS: Hematocrit 37.6 % (37.5-50.1); Hemoglobin 11.9 g/dL (12.9-16.9); Mean Corpuscular HGB Conc 31.6 g/dL (31.6-35.5); Mean Corpuscular Hemoglobin 27.6 pg (28.0-33.3); Mean Corpuscular Volume 87.2 fL (83.0-100.0); Mean Platelet Volume 10.2 fL (9.4-12.4); Platelet Count 365 K/mcL (140-400); Red Blood Count 4.31 M/mcL (4.19-5.50); Red Cell Distribution Width 17.4 % (11.5-14.5)
[2019-08-15 09:15] LABS: White Blood Count 9.9 K/mcL (4.3-11.1)
[2019-08-15 09:32] LABS: BUN/Creatinine Ratio 17 (6-26); Blood Urea Nitrogen 8 mg/dL (6-20); Calcium 9.7 mg/dL (8.6-10.3); Carbon Dioxide 33 mEq/L (23-29); Chloride 98 mEq/L (98-107); Glucose 155 mg/dL (70-105); Osmolality,Calculated 287 (280-300); Potassium 4.2 mEq/L (3.5-5.1); Sodium 138 mEq/L (136-145); eGFR For African Americans > 60 (> 60); eGFR For Non-African Americans > 60 (> 60)
[2019-08-15] MEDS: 0.9 % Sodium Chloride 1,000 ML IVC SCH (16:27)
[2019-08-16] MEDS: MetroNIDAZOLE 500 MG/100 ML 500 MG/100 ML BAG IVPB SCH ×3 (01:04→18:38)
[2019-08-16] MEDS: Ipratropium 1 PUFF INHALER IH SCH ×4 (03:31→22:01)
[2019-08-16] MEDS: Cefepime HCl 2,000 MG in 0.9 % Sodium Chloride Mini Bag 100 ML IVPB SCH ×2 (05:49→19:59)
[2019-08-16] MEDS: 0.9 % Sodium Chloride 1,000 ML IVC SCH ×2 (05:50→12:19)
[2019-08-16] MEDS ORDERED: *HR* Propofol 200 MG/20 ML VIAL IVP ONE (07:01)
[2019-08-16] MEDS ORDERED: Ondansetron 4 MG/2 ML VIAL ONE (07:01)
[2019-08-16] MEDS ORDERED: Lidocaine -MPF 2% 2 ML VIAL ONE (07:01)
[2019-08-16] MEDS ORDERED: Dexamethasone 4 MG/ML VIAL ONE (07:01)
[2019-08-16] MEDS ORDERED: Lidocaine -MPF 4% 5 ML AMPUL ONE (07:01)
[2019-08-16] MEDS ORDERED: *HR* Succinylcholine 200 MG/10 ML VIAL IVP ONE (07:01)
[2019-08-16] MEDS ORDERED: *HR* FentaNYL (PF) 100 MCG/2 ML VIAL ONE (07:01)
[2019-08-16] MEDS: Insulin LISPRO 300 UNITS/3 ML VIAL SQ SCH ×3 (07:08→18:36)
[2019-08-16] MEDS: predniSONE 10 MG TABLET PO SCH ×2 (07:10→10:27)
[2019-08-16] MEDS ORDERED: *HR* Vasopressin 20 UNIT/ML VIAL ONE (07:20)
[2019-08-16] MEDS ORDERED: *HR* Rocuronium Bromide 50 MG/5 ML VIAL ONE (08:22)
[2019-08-16] MEDS: lamoTRIgine 100 MG TABLET PO SCH ×2 (10:27→20:39)
[2019-08-16] MEDS: Heparin 25,000 UNIT/250 ML D5W 25,000 UNIT/250 ML IV.SOLN IVC SCH (20:38)
[2019-08-17] MEDS: Insulin LISPRO 300 UNITS/3 ML VIAL SQ SCH ×4 (00:46→18:09)
[2019-08-17] MEDS: MetroNIDAZOLE 500 MG/100 ML 500 MG/100 ML BAG IVPB SCH ×3 (00:49→15:51)
[2019-08-17] MEDS: Ipratropium 1 PUFF INHALER IH SCH ×4 (03:36→21:18)
[2019-08-17 04:19] LABS: Hematocrit 33.4 % (37.5-50.1); Hemoglobin 10.4 g/dL (12.9-16.9); Mean Corpuscular HGB Conc 31.1 g/dL (31.6-35.5); Mean Corpuscular Hemoglobin 27.7 pg (28.0-33.3); Mean Corpuscular Volume 88.8 fL (83.0-100.0); Mean Platelet Volume 10.3 fL (9.4-12.4); Platelet Count 326 K/mcL (140-400); Red Blood Count 3.76 M/mcL (4.19-5.50); Red Cell Distribution Width 16.9 % (11.5-14.5)
[2019-08-17 04:39] LABS: BUN/Creatinine Ratio 21 (6-26); Blood Urea Nitrogen 8 mg/dL (6-20); Calcium 8.7 mg/dL (8.6-10.3); Carbon Dioxide 30 mEq/L (23-29); Chloride 100 mEq/L (98-107); Glucose 170 mg/dL (70-105); Osmolality,Calculated 284 (280-300); Potassium 3.9 mEq/L (3.5-5.1); Sodium 136 mEq/L (136-145); eGFR For African Americans > 60 (> 60); eGFR For Non-African Americans > 60 (> 60)
[2019-08-17] MEDS: 0.9 % Sodium Chloride 1,000 ML IVC SCH ×2 (05:54→15:50)
[2019-08-17] MEDS: Cefepime HCl 2,000 MG in 0.9 % Sodium Chloride Mini Bag 100 ML IVPB SCH ×2 (05:55→18:08)
[2019-08-17] MEDS: Heparin 25,000 UNIT/250 ML D5W 25,000 UNIT/250 ML IV.SOLN IVC SCH (08:04)
[2019-08-17] MEDS: predniSONE 10 MG TABLET PO SCH (08:13)
[2019-08-17] MEDS: levETIRAcetam 500 MG/5 ML UDC GTUBE SCH ×2 (08:13→21:37)
[2019-08-17] MEDS: Apixaban 5 MG TABLET GTUBE SCH ×2 (08:13→21:37)
[2019-08-17] MEDS: lamoTRIgine 100 MG TABLET PO SCH (08:13)
[2019-08-17] MEDS: lamoTRIgine 100 MG TABLET GTUBE SCH (21:37)
[2019-08-18] MEDS: Insulin LISPRO 300 UNITS/3 ML VIAL SQ SCH ×2 (00:48→06:23)
[2019-08-18] MEDS: MetroNIDAZOLE 500 MG/100 ML 500 MG/100 ML BAG IVPB SCH ×2 (01:22→09:18)
[2019-08-18] MEDS: Ipratropium 1 PUFF INHALER IH SCH ×2 (03:48→10:09)
[2019-08-18] MEDS: 0.9 % Sodium Chloride 1,000 ML IVC SCH (05:33)
[2019-08-18] MEDS: Cefepime HCl 2,000 MG in 0.9 % Sodium Chloride Mini Bag 100 ML IVPB SCH (06:22)
[2019-08-18] MEDS: levETIRAcetam 500 MG/5 ML UDC GTUBE SCH (09:19)
[2019-08-18] MEDS: predniSONE 10 MG TABLET PO SCH (09:19)
[2019-08-18] MEDS: lamoTRIgine 100 MG TABLET GTUBE SCH (09:19)
[2019-08-18] MEDS: Apixaban 5 MG TABLET GTUBE SCH (09:19)
[2019-08-18 11:04] VITALS: BP 142/82
== END 2019-08-18 12:37 | DRG 871 ==
LOC: ICNU 22:01 → SUATTDRO 22:01 → 2NENU 08-04 10:51 → 3NENU 08-05 16:58 → 2NNU 08-08 13:34 → 2ANU 08-10 21:39
PROVIDERS: ADMIT Internal Medicine; ATTEND Family Medicine
PROC: ENDOEBX (2019-08-06 10:00)

== ENCOUNTER 2019-09-01 14:58 | Inpatient (IN) ==
[2019-09-01] MEDS ORDERED: Acetaminophen 325 MG TABLET PO PRN (18:03)
[2019-09-01] MEDS ORDERED: MOM Conc 10 ML UD.LIQ PO PRN (18:03)
[2019-09-01] MEDS ORDERED: *HR* Promethazine 25 MG/ML VIAL IVP PRN (18:03)
[2019-09-01] MEDS ORDERED: Naloxone 0.4 MG/ML INJ IVP PRN (18:03)
[2019-09-01] MEDS ORDERED: *HR* LORazepam 2 MG/ML VIAL IVP PRN (18:03)
[2019-09-01] MEDS ORDERED: MOM Conc 10 ML UD.LIQ GTUBE PRN (18:10)
[2019-09-01] MEDS ORDERED: Dextrose Gel 15 GM/37.5 ML TUBE PO PRN ×2 (18:13)
[2019-09-01] MEDS ORDERED: *HR* Dextrose 50 % in Water (Syg) 50 ML SYRINGE IVP PRN (18:13)
[2019-09-01] MEDS ORDERED: D5% in Water 1,000 ML IVC PRN (18:13)
[2019-09-01] MEDS ORDERED: 0.9 % Sodium Chloride w KCl 20 MEQ/1,000 ML MLS IVC SCH (18:15)
[2019-09-01] MEDS ORDERED: Vancomycin (wt based) 1,000 MG VIAL IVPB SCH (19:00)
[2019-09-01 22:13] LABS: Estimated Average Glucose 134 mg/dl
[2019-09-01] MEDS: lamoTRIgine 100 MG TABLET GTUBE SCH (22:25)
[2019-09-01] MEDS: Apixaban 5 MG TABLET GTUBE SCH (22:26)
[2019-09-01] MEDS: levETIRAcetam 500 MG/5 ML UDC GTUBE SCH (22:26)
[2019-09-02 01:16] LABS: Basophils % 0.7 %; Eosinophils # 0.1 K/mcL (0.0-0.6); Eosinophils % 1.9 %; Hematocrit 35.6 % (37.5-50.1); Hemoglobin 11.2 g/dL (12.9-16.9); Immature Granulocytes % 1.5 % (0-4); Lymphocytes # 1.9 K/mcL (0.6-4.6); Lymphocytes % 32.3 %; Mean Corpuscular HGB Conc 31.5 g/dL (31.6-35.5); Mean Corpuscular Hemoglobin 28.7 pg (28.0-33.3); Mean Corpuscular Volume 91.3 fL (83.0-100.0); Mean Platelet Volume 10.5 fL (9.4-12.4); Monocytes # 0.9 K/mcL (0.0-1.3); Monocytes % 14.9 %; Neutrophils # 2.9 K/mcL (1.6-8.9); Platelet Count 419 K/mcL (140-400); Red Cell Distribution Width 16.1 % (11.5-14.5); Segmented Neutrophils % 48.7 %; White Blood Count 5.9 K/mcL (4.3-11.1)
[2019-09-02] MEDS: Insulin LISPRO 300 UNITS/3 ML VIAL SQ SCH ×4 (02:12→18:47)
[2019-09-02 03:57] LABS: Alanine Aminotransferase 38 Units/L (7-52); Albumin 3.1 g/dL (3.5-5.7); Alkaline Phosphatase 54 Units/L (34-104); Aspartate Amino Transferase 33 Units/L (13-39); BUN/Creatinine Ratio 38 (6-26); Bilirubin,Total 0.4 mg/dL (0.3-1.0); Blood Urea Nitrogen 16 mg/dL (6-20); Calcium 8.2 mg/dL (8.6-10.3); Carbon Dioxide 30 mEq/L (23-29); Chloride 101 mEq/L (98-107); Glucose 99 mg/dL (70-105); Magnesium 1.7 mg/dL (1.6-2.6); Osmolality,Calculated 281 (280-300); Phosphorous 3.3 mg/dL (2.7-4.5); Potassium 4.6 mEq/L (3.5-5.1); Sodium 135 mEq/L (136-145); Total Protein 6.1 g/dL (6.4-8.9); eGFR For African Americans > 60 (> 60); eGFR For Non-African Americans > 60 (> 60)
[2019-09-02] MEDS ORDERED: Clotrimazole 1% CRM 15 GM TUBE TP SCH (09:00)
[2019-09-02] MEDS: Multivitamin Liquid 15 ML UDC GTUBE SCH (10:06)
[2019-09-02] MEDS: Cholecalciferol (D-3) 1,000 UNIT (25MCG) TABLET PO SCH (10:07)
[2019-09-02] MEDS: lamoTRIgine 100 MG TABLET GTUBE SCH ×2 (10:07→21:38)
[2019-09-02] MEDS: Apixaban 5 MG TABLET GTUBE SCH ×2 (10:07→21:38)
[2019-09-02] MEDS: levoFLOXacin 750 MG/150 ML 750 MG/150 ML BAG IVPB SCH (10:08)
[2019-09-02] MEDS: levETIRAcetam 500 MG/5 ML UDC GTUBE SCH ×2 (10:08→21:38)
[2019-09-02] MEDS: Ketoconazole 2% CRM 15 GM TUBE TP SCH (17:45)
[2019-09-03] MEDS: Insulin LISPRO 300 UNITS/3 ML VIAL SQ SCH ×4 (01:33→19:10)
[2019-09-03 04:47] LABS: Basophils % 0.5 %; Eosinophils # 0.2 K/mcL (0.0-0.6); Eosinophils % 2.5 %; Hematocrit 35.2 % (37.5-50.1); Hemoglobin 11.3 g/dL (12.9-16.9); Immature Granulocytes % 1.2 % (0-4); Lymphocytes # 1.6 K/mcL (0.6-4.6); Lymphocytes % 26.9 %; Mean Corpuscular HGB Conc 32.1 g/dL (31.6-35.5); Mean Corpuscular Hemoglobin 28.8 pg (28.0-33.3); Mean Corpuscular Volume 89.6 fL (83.0-100.0); Mean Platelet Volume 10.5 fL (9.4-12.4); Monocytes # 0.8 K/mcL (0.0-1.3); Monocytes % 13.1 %; Neutrophils # 3.3 K/mcL (1.6-8.9); Platelet Count 470 K/mcL (140-400); Red Blood Count 3.93 M/mcL (4.19-5.50); Red Cell Distribution Width 15.6 % (11.5-14.5); Segmented Neutrophils % 55.8 %; White Blood Count 5.9 K/mcL (4.3-11.1)
[2019-09-03 05:07] LABS: BUN/Creatinine Ratio 32 (6-26); Blood Urea Nitrogen 12 mg/dL (6-20); Calcium 8.8 mg/dL (8.6-10.3); Carbon Dioxide 26 mEq/L (23-29); Chloride 97 mEq/L (98-107); Glucose 130 mg/dL (70-105); Osmolality,Calculated 274 (280-300); Potassium 4.3 mEq/L (3.5-5.1); Sodium 131 mEq/L (136-145); eGFR For African Americans > 60 (> 60); eGFR For Non-African Americans > 60 (> 60)
[2019-09-03] MEDS: lamoTRIgine 100 MG TABLET GTUBE SCH ×2 (07:48→21:50)
[2019-09-03] MEDS: Apixaban 5 MG TABLET GTUBE SCH ×2 (07:48→21:50)
[2019-09-03] MEDS: levETIRAcetam 500 MG/5 ML UDC GTUBE SCH ×2 (07:49→21:50)
[2019-09-03] MEDS: levoFLOXacin 750 MG/150 ML 750 MG/150 ML BAG IVPB SCH (07:49)
[2019-09-03] MEDS: Ketoconazole 2% CRM 15 GM TUBE TP SCH (07:49)
[2019-09-03] MEDS: Cholecalciferol (D-3) 1,000 UNIT (25MCG) TABLET PO SCH (07:51)
[2019-09-03] MEDS: Multivitamin Liquid 15 ML UDC GTUBE SCH (07:52)
[2019-09-03] MEDS: Lactobacillus 1 EACH CAP.SPRINK GTUBE SCH (21:50)
[2019-09-04] MEDS: Insulin LISPRO 300 UNITS/3 ML VIAL SQ SCH ×4 (01:14→18:01)
[2019-09-04 02:24] LABS: Basophils % 0.4 %; Eosinophils # 0.1 K/mcL (0.0-0.6); Eosinophils % 1.4 %; Hemoglobin 11.3 g/dL (12.9-16.9); Lymphocytes # 1.7 K/mcL (0.6-4.6); Lymphocytes % 33.7 %; Mean Corpuscular HGB Conc 31.4 g/dL (31.6-35.5); Mean Corpuscular Hemoglobin 27.6 pg (28.0-33.3); Mean Platelet Volume 10.1 fL (9.4-12.4); Monocytes # 0.7 K/mcL (0.0-1.3); Monocytes % 13.5 %; Neutrophils # 2.5 K/mcL (1.6-8.9); Platelet Count 468 K/mcL (140-400); Red Blood Count 4.09 M/mcL (4.19-5.50)
[2019-09-04] MEDS: Multivitamin Liquid 15 ML UDC GTUBE SCH (09:01)
[2019-09-04] MEDS: levETIRAcetam 500 MG/5 ML UDC GTUBE SCH ×2 (09:01→20:08)
[2019-09-04] MEDS: levoFLOXacin 500 MG TABLET GTUBE SCH (09:03)
[2019-09-04] MEDS: lamoTRIgine 100 MG TABLET GTUBE SCH ×2 (09:04→20:08)
[2019-09-04] MEDS: Cholecalciferol (D-3) 1,000 UNIT (25MCG) TABLET PO SCH (09:04)
[2019-09-04] MEDS: Lactobacillus 1 EACH CAP.SPRINK GTUBE SCH ×2 (09:04→20:08)
[2019-09-04] MEDS: Apixaban 5 MG TABLET GTUBE SCH ×2 (09:04→20:08)
[2019-09-04] MEDS: Ketoconazole 2% CRM 15 GM TUBE TP SCH (12:22)
[2019-09-04] MEDS: metroNIDAZOLE 500 MG TABLET GTUBE SCH ×2 (13:54→20:08)
[2019-09-05] MEDS: Insulin LISPRO 300 UNITS/3 ML VIAL SQ SCH ×5 (00:18→23:43)
[2019-09-05 04:44] LABS: Hematocrit 37.8 % (37.5-50.1); Mean Corpuscular HGB Conc 31.7 g/dL (31.6-35.5); Mean Corpuscular Hemoglobin 28.3 pg (28.0-33.3); Mean Corpuscular Volume 89.2 fL (83.0-100.0); Mean Platelet Volume 10.2 fL (9.4-12.4); Platelet Count 453 K/mcL (140-400); Red Blood Count 4.24 M/mcL (4.19-5.50); Red Cell Distribution Width 15.9 % (11.5-14.5); White Blood Count 4.9 K/mcL (4.3-11.1)
[2019-09-05 05:03] LABS: BUN/Creatinine Ratio 26 (6-26); Blood Urea Nitrogen 10 mg/dL (6-20); Calcium 8.8 mg/dL (8.6-10.3); Carbon Dioxide 33 mEq/L (23-29); Chloride 95 mEq/L (98-107); Glucose 146 mg/dL (70-105); Magnesium 1.7 mg/dL (1.6-2.6); Osmolality,Calculated 278 (280-300); Phosphorous 3.5 mg/dL (2.7-4.5); Potassium 4.1 mEq/L (3.5-5.1); Sodium 133 mEq/L (136-145); eGFR For African Americans > 60 (> 60); eGFR For Non-African Americans > 60 (> 60)
[2019-09-05] MEDS: levETIRAcetam 500 MG/5 ML UDC GTUBE SCH ×2 (09:04→20:08)
[2019-09-05] MEDS: lamoTRIgine 100 MG TABLET GTUBE SCH ×2 (09:05→20:08)
[2019-09-05] MEDS: levoFLOXacin 500 MG TABLET GTUBE SCH (09:05)
[2019-09-05] MEDS: Lactobacillus 1 EACH CAP.SPRINK GTUBE SCH ×2 (09:05→20:08)
[2019-09-05] MEDS: Cholecalciferol (D-3) 1,000 UNIT (25MCG) TABLET PO SCH (09:05)
[2019-09-05] MEDS: metroNIDAZOLE 500 MG TABLET GTUBE SCH ×3 (09:05→20:08)
[2019-09-05] MEDS: Apixaban 5 MG TABLET GTUBE SCH ×2 (09:05→20:08)
[2019-09-05] MEDS: Ketoconazole 2% CRM 15 GM TUBE TP SCH (09:06)
[2019-09-05] MEDS: Multivitamin Liquid 15 ML UDC GTUBE SCH (09:14)
[2019-09-05] MEDS ORDERED: Bisacodyl 10 MG RECTAL SUPPOSITORY RC ONE (11:00)
[2019-09-06 02:46] LABS: Hematocrit 39.7 % (37.5-50.1); Hemoglobin 12.5 g/dL (12.9-16.9); Mean Corpuscular HGB Conc 31.5 g/dL (31.6-35.5); Mean Corpuscular Hemoglobin 28.1 pg (28.0-33.3); Mean Corpuscular Volume 89.2 fL (83.0-100.0); Mean Platelet Volume 10.6 fL (9.4-12.4); Platelet Count 464 K/mcL (140-400); Red Blood Count 4.45 M/mcL (4.19-5.50); Red Cell Distribution Width 15.8 % (11.5-14.5); White Blood Count 5.2 K/mcL (4.3-11.1)
[2019-09-06 03:08] LABS: BUN/Creatinine Ratio 23 (6-26); Blood Urea Nitrogen 10 mg/dL (6-20); Calcium 9.3 mg/dL (8.6-10.3); Carbon Dioxide 28 mEq/L (23-29); Chloride 94 mEq/L (98-107); Glucose 122 mg/dL (70-105); Osmolality,Calculated 274 (280-300); Potassium 4.6 mEq/L (3.5-5.1); Sodium 132 mEq/L (136-145); eGFR For African Americans > 60 (> 60); eGFR For Non-African Americans > 60 (> 60)
[2019-09-06] MEDS: Insulin LISPRO 300 UNITS/3 ML VIAL SQ SCH ×3 (06:01→17:54)
[2019-09-06] MEDS: metroNIDAZOLE 500 MG TABLET GTUBE SCH ×3 (08:30→20:03)
[2019-09-06] MEDS: Multivitamin Liquid 15 ML UDC GTUBE SCH (08:30)
[2019-09-06] MEDS: levETIRAcetam 500 MG/5 ML UDC GTUBE SCH ×2 (08:30→20:02)
[2019-09-06] MEDS: Cholecalciferol (D-3) 1,000 UNIT (25MCG) TABLET PO SCH (08:31)
[2019-09-06] MEDS: Lactobacillus 1 EACH CAP.SPRINK GTUBE SCH ×2 (08:31→20:03)
[2019-09-06] MEDS: lamoTRIgine 100 MG TABLET GTUBE SCH ×2 (08:31→20:03)
[2019-09-06] MEDS: levoFLOXacin 500 MG TABLET GTUBE SCH (08:31)
[2019-09-06] MEDS: Apixaban 5 MG TABLET GTUBE SCH ×2 (08:31→20:03)
[2019-09-06] MEDS: Ketoconazole 2% CRM 15 GM TUBE TP SCH (08:31)
[2019-09-06] MEDS: 0.9 % Sodium Chloride 1,000 ML IVC SCH ×2 (08:32→17:54)
[2019-09-06] MEDS: polyethylene glycoL 3350 17 GM POWD.PACK GTUBE SCH (08:32)
[2019-09-06] MEDS ORDERED: Aminoglycoside Consult 1 EACH MC ONE (08:39)
[2019-09-06] MEDS ORDERED: Piperacillin/Tazobactam 3.375 GM in 0.9 % Sodium Chloride Mini Bag 100 ML IVPB SCH (16:00)
[2019-09-07] MEDS: Insulin LISPRO 300 UNITS/3 ML VIAL SQ SCH ×4 (00:20→18:09)
[2019-09-07 07:07] LABS: Hematocrit 37.8 % (37.5-50.1); Hemoglobin 12.2 g/dL (12.9-16.9); Mean Corpuscular HGB Conc 32.3 g/dL (31.6-35.5); Mean Corpuscular Hemoglobin 28.8 pg (28.0-33.3); Mean Corpuscular Volume 89.2 fL (83.0-100.0); Mean Platelet Volume 10.1 fL (9.4-12.4); Platelet Count 398 K/mcL (140-400); Red Blood Count 4.24 M/mcL (4.19-5.50); Red Cell Distribution Width 15.9 % (11.5-14.5); White Blood Count 6.5 K/mcL (4.3-11.1)
[2019-09-07 07:28] LABS: BUN/Creatinine Ratio 28 (6-26); Blood Urea Nitrogen 12 mg/dL (6-20); Carbon Dioxide 32 mEq/L (23-29); Chloride 98 mEq/L (98-107); Glucose 151 mg/dL (70-105); Osmolality,Calculated 281 (280-300); Potassium 4.1 mEq/L (3.5-5.1); Sodium 134 mEq/L (136-145); eGFR For African Americans > 60 (> 60); eGFR For Non-African Americans > 60 (> 60)
[2019-09-07] MEDS: polyethylene glycoL 3350 17 GM POWD.PACK GTUBE SCH (08:37)
[2019-09-07] MEDS: metroNIDAZOLE 500 MG TABLET GTUBE SCH ×3 (08:37→20:55)
[2019-09-07] MEDS: 0.9 % Sodium Chloride 1,000 ML IVC SCH ×2 (08:37→17:50)
[2019-09-07] MEDS: Multivitamin Liquid 15 ML UDC GTUBE SCH (08:37)
[2019-09-07] MEDS: levETIRAcetam 500 MG/5 ML UDC GTUBE SCH ×2 (08:37→20:55)
[2019-09-07] MEDS: levoFLOXacin 500 MG TABLET GTUBE SCH (08:37)
[2019-09-07] MEDS: lamoTRIgine 100 MG TABLET GTUBE SCH ×2 (08:38→20:54)
[2019-09-07] MEDS: Apixaban 5 MG TABLET GTUBE SCH ×2 (08:38→20:55)
[2019-09-07] MEDS: Lactobacillus 1 EACH CAP.SPRINK GTUBE SCH ×2 (08:38→20:54)
[2019-09-07] MEDS: Cholecalciferol (D-3) 1,000 UNIT (25MCG) TABLET PO SCH (08:38)
[2019-09-07] MEDS: Ketoconazole 2% CRM 15 GM TUBE TP SCH (08:39)
[2019-09-07 18:52] LABS: Bilirubin,Urine Negative (Negative); Blood,Urine Large (Negative); Clarity,Urine Cloudy (Clear); Color,Urine Dark Yellow (Yellow); Glucose,Urine (UA) Normal (Normal); Ketones,Urine Negative (Negative); Leukocyte Esterase,Urine Small (Negative); Nitrite,Urine Negative (Negative); Protein,Urine 100 mg/dL (Neg-Trace); Specific Gravity,Urine 1.021 (1.010-1.025)
[2019-09-07 18:54] LABS: Hyaline Casts,Urine None Seen per lpf (None-Few); RBC,Urine TNTC per hpf (0-3); Squamous Epithelial Cell,Urine Moderate per lpf (None-Few)
[2019-09-07 19:04] LABS: Bacteria,Urine Moderate per hpf (None-Few)
[2019-09-07 19:05] LABS: Mucus,Urine Few per lpf (Few)
[2019-09-08] MEDS: Insulin LISPRO 300 UNITS/3 ML VIAL SQ SCH ×4 (01:07→17:05)
[2019-09-08] MEDS: polyethylene glycoL 3350 17 GM POWD.PACK GTUBE SCH (08:42)
[2019-09-08] MEDS: Ketoconazole 2% CRM 15 GM TUBE TP SCH (08:42)
[2019-09-08] MEDS: Apixaban 5 MG TABLET GTUBE SCH ×2 (08:43→21:24)
[2019-09-08] MEDS: levoFLOXacin 500 MG TABLET GTUBE SCH (08:43)
[2019-09-08] MEDS: Cholecalciferol (D-3) 1,000 UNIT (25MCG) TABLET PO SCH (08:43)
[2019-09-08] MEDS: Lactobacillus 1 EACH CAP.SPRINK GTUBE SCH ×2 (08:43→21:24)
[2019-09-08] MEDS: Multivitamin Liquid 15 ML UDC GTUBE SCH (08:43)
[2019-09-08] MEDS: lamoTRIgine 100 MG TABLET GTUBE SCH ×2 (08:43→21:24)
[2019-09-08] MEDS: levETIRAcetam 500 MG/5 ML UDC GTUBE SCH ×2 (08:43→21:24)
[2019-09-08] MEDS: metroNIDAZOLE 500 MG TABLET GTUBE SCH ×2 (08:46→16:13)
[2019-09-09] MEDS: Insulin LISPRO 300 UNITS/3 ML VIAL SQ SCH ×4 (00:28→18:38)
[2019-09-09 02:12] LABS: Hematocrit 37.8 % (37.5-50.1); Hemoglobin 11.8 g/dL (12.9-16.9); Mean Corpuscular HGB Conc 31.2 g/dL (31.6-35.5); Mean Corpuscular Hemoglobin 27.8 pg (28.0-33.3); Mean Corpuscular Volume 88.9 fL (83.0-100.0); Mean Platelet Volume 10.5 fL (9.4-12.4); Platelet Count 345 K/mcL (140-400); Red Blood Count 4.25 M/mcL (4.19-5.50); Red Cell Distribution Width 15.9 % (11.5-14.5); White Blood Count 6.2 K/mcL (4.3-11.1)
[2019-09-09 02:29] LABS: BUN/Creatinine Ratio 39 (6-26); Blood Urea Nitrogen 15 mg/dL (6-20); Calcium 8.8 mg/dL (8.6-10.3); Carbon Dioxide 33 mEq/L (23-29); Chloride 96 mEq/L (98-107); Glucose 150 mg/dL (70-105); Osmolality,Calculated 278 (280-300); Potassium 4.3 mEq/L (3.5-5.1); Sodium 132 mEq/L (136-145); eGFR For African Americans > 60 (> 60); eGFR For Non-African Americans > 60 (> 60)
[2019-09-09] MEDS: levETIRAcetam 500 MG/5 ML UDC GTUBE SCH ×2 (08:42→20:17)
[2019-09-09] MEDS: polyethylene glycoL 3350 17 GM POWD.PACK GTUBE SCH (08:44)
[2019-09-09] MEDS: Cholecalciferol (D-3) 1,000 UNIT (25MCG) TABLET PO SCH (08:45)
[2019-09-09] MEDS: lamoTRIgine 100 MG TABLET GTUBE SCH ×2 (08:46→20:17)
[2019-09-09] MEDS: Apixaban 5 MG TABLET GTUBE SCH ×2 (08:46→20:18)
[2019-09-09] MEDS: Lactobacillus 1 EACH CAP.SPRINK GTUBE SCH ×2 (08:47→20:17)
[2019-09-09] MEDS: Multivitamin Liquid 15 ML UDC GTUBE SCH (08:49)
[2019-09-09] MEDS: Ketoconazole 2% CRM 15 GM TUBE TP SCH (08:50)
[2019-09-10] MEDS: Insulin LISPRO 300 UNITS/3 ML VIAL SQ SCH ×4 (00:10→17:18)
[2019-09-10 08:23] LABS: Hematocrit 38.3 % (37.5-50.1); Hemoglobin 12.8 g/dL (12.9-16.9); Mean Corpuscular HGB Conc 33.4 g/dL (31.6-35.5); Mean Corpuscular Volume 83.8 fL (83.0-100.0); Mean Platelet Volume 10.7 fL (9.4-12.4); Platelet Count 267 K/mcL (140-400); Red Blood Count 4.57 M/mcL (4.19-5.50); Red Cell Distribution Width 15.6 % (11.5-14.5); White Blood Count 8.5 K/mcL (4.3-11.1)
[2019-09-10] MEDS: polyethylene glycoL 3350 17 GM POWD.PACK GTUBE SCH (08:44)
[2019-09-10] MEDS: Lactobacillus 1 EACH CAP.SPRINK GTUBE SCH ×2 (08:44→22:12)
[2019-09-10] MEDS: lamoTRIgine 100 MG TABLET GTUBE SCH ×2 (08:44→22:12)
[2019-09-10] MEDS: MOM Conc 10 ML UD.LIQ GTUBE SCH (08:44)
[2019-09-10] MEDS: Multivitamin Liquid 15 ML UDC GTUBE SCH (08:44)
[2019-09-10] MEDS: levETIRAcetam 500 MG/5 ML UDC GTUBE SCH ×2 (08:44→22:12)
[2019-09-10] MEDS: Apixaban 5 MG TABLET GTUBE SCH ×2 (08:44→22:12)
[2019-09-10] MEDS: Cholecalciferol (D-3) 1,000 UNIT (25MCG) TABLET PO SCH (08:44)
[2019-09-10] MEDS: Ketoconazole 2% CRM 15 GM TUBE TP SCH (08:45)
[2019-09-10 09:43] LABS: BUN/Creatinine Ratio 35 (6-26); Blood Urea Nitrogen 13 mg/dL (6-20); Calcium 8.9 mg/dL (8.6-10.3); Carbon Dioxide 36 mEq/L (23-29); Chloride 90 mEq/L (98-107); Glucose 164 mg/dL (70-105); Osmolality,Calculated 280 (280-300); Potassium 4.1 mEq/L (3.5-5.1); Sodium 133 mEq/L (136-145); eGFR For African Americans > 60 (> 60); eGFR For Non-African Americans > 60 (> 60)
[2019-09-11 05:48] LABS: Mean Corpuscular HGB Conc 31.1 g/dL (31.6-35.5); Mean Corpuscular Hemoglobin 27.5 pg (28.0-33.3); Mean Corpuscular Volume 88.5 fL (83.0-100.0); Mean Platelet Volume 10.1 fL (9.4-12.4); Platelet Count 297 K/mcL (140-400); Red Blood Count 4.07 M/mcL (4.19-5.50); Red Cell Distribution Width 15.4 % (11.5-14.5); White Blood Count 4.8 K/mcL (4.3-11.1)
[2019-09-11 05:50] LABS: Hemoglobin 11.2 g/dL (12.9-16.9)
[2019-09-11] MEDS: Insulin LISPRO 300 UNITS/3 ML VIAL SQ SCH ×4 (05:57→17:44)
[2019-09-11 06:07] LABS: BUN/Creatinine Ratio 29 (6-26); Blood Urea Nitrogen 11 mg/dL (6-20); Calcium 8.8 mg/dL (8.6-10.3); Carbon Dioxide 39 mEq/L (23-29); Chloride 99 mEq/L (98-107); Glucose 148 mg/dL (70-105); Osmolality,Calculated 270 (280-300); Potassium 4.2 mEq/L (3.5-5.1); Sodium 129 mEq/L (136-145); eGFR For African Americans > 60 (> 60); eGFR For Non-African Americans > 60 (> 60)
[2019-09-11] MEDS: levETIRAcetam 500 MG/5 ML UDC GTUBE SCH ×2 (08:12→23:26)
[2019-09-11] MEDS: polyethylene glycoL 3350 17 GM POWD.PACK GTUBE SCH (08:12)
[2019-09-11] MEDS: MOM Conc 10 ML UD.LIQ GTUBE SCH (08:13)
[2019-09-11] MEDS: Cholecalciferol (D-3) 1,000 UNIT (25MCG) TABLET PO SCH (08:13)
[2019-09-11] MEDS: lamoTRIgine 100 MG TABLET GTUBE SCH ×2 (08:13→23:26)
[2019-09-11] MEDS: Multivitamin Liquid 15 ML UDC GTUBE SCH (08:13)
[2019-09-11] MEDS: Apixaban 5 MG TABLET GTUBE SCH ×2 (08:13→23:26)
[2019-09-11] MEDS: Lactobacillus 1 EACH CAP.SPRINK GTUBE SCH ×2 (08:13→23:26)
[2019-09-11] MEDS: Ketoconazole 2% CRM 15 GM TUBE TP SCH (08:19)
[2019-09-12] MEDS: Insulin LISPRO 300 UNITS/3 ML VIAL SQ SCH ×2 (00:09→05:44)
[2019-09-12] MEDS: Cholecalciferol (D-3) 1,000 UNIT (25MCG) TABLET PO SCH (08:39)
[2019-09-12] MEDS: Lactobacillus 1 EACH CAP.SPRINK GTUBE SCH (08:39)
[2019-09-12] MEDS: Multivitamin Liquid 15 ML UDC GTUBE SCH (08:39)
[2019-09-12] MEDS: Apixaban 5 MG TABLET GTUBE SCH (08:39)
[2019-09-12] MEDS: lamoTRIgine 100 MG TABLET GTUBE SCH (08:39)
[2019-09-12] MEDS: levETIRAcetam 500 MG/5 ML UDC GTUBE SCH (08:39)
[2019-09-12] MEDS: Ketoconazole 2% CRM 15 GM TUBE TP SCH (08:40)
[2019-09-12] MEDS: polyethylene glycoL 3350 17 GM POWD.PACK GTUBE SCH (08:40)
[2019-09-12] MEDS: MOM Conc 10 ML UD.LIQ GTUBE SCH (08:41)
[2019-09-12 11:46] VITALS: BP 106/76
== END 2019-09-12 13:22 | DRG 871 ==
LOC: 2NENU → SUATTDRO 18:03 → 2ANU 09-03 21:36
PROVIDERS: ADMIT Pediatrics; ATTEND Internal Medicine

== ENCOUNTER 2020-01-11 17:48 | Inpatient (IN) ==
[2020-01-11 22:26] LABS: Adenovirus Not Detected (Not Detect); Bordetella Pertussis Not Detected (Not Detect); Chlamydophila pneumoniae Not Detected (Not Detect); Coronavirus 229E Not Detected (Not Detect); Coronavirus HKU1 Not Detected (Not Detect); Coronavirus NL63 Not Detected (Not Detect); Coronavirus OC43 Not Detected (Not Detect); Human Metapneumovirus Not Detected (Not Detect); Human Rhinovirus/Enterovirus Not Detected (Not Detect); Influenza A Subtype 2009 H1 Not Detected (Not Detect); Influenza B Not Detected (Not Detect); Mycoplasma pneumoniae Not Detected (Not Detect); Parainfluenza Virus 1 Not Detected (Not Detect); Parainfluenza Virus 2 Not Detected (Not Detect); Parainfluenza Virus 3 Not Detected (Not Detect); Parainfluenza Virus 4 Not Detected (Not Detect); Respiratory Syncytial Virus Not Detected (Not Detect); SARS-CoV-2 Not Detected (Not Detect)
[2020-01-11 23:15] LABS: VBG Ionized Calcium 1.18 mmol/L (1.15-1.35)
[2020-01-11 23:19] LABS: INR 1.2; Prothrombin Time 13.1 Seconds (9.4-12.1)
[2020-01-11] MEDS ORDERED: Naloxone 0.4 MG/ML INJ IVP PRN (23:19)
[2020-01-11 23:21] LABS: Activated Partial Thrombo Time 34.5 Seconds (26.0-36.0)
[2020-01-11 23:26] LABS: Eosinophils % 0.5 %; Immature Granulocytes % 0.2 % (0-4)
[2020-01-11 23:27] LABS: Basophils % 0.1 %; Hematocrit 39.1 % (37.5-50.1); Hemoglobin 11.3 g/dL (12.9-16.9); Lymphocytes % 35.2 %; Mean Corpuscular HGB Conc 28.9 g/dL (31.6-35.5); Mean Corpuscular Hemoglobin 28.1 pg (28.0-33.3); Mean Corpuscular Volume 97.3 fL (83.0-100.0); Mean Platelet Volume 13.4 fL (9.4-12.4); Monocytes # 0.6 K/mcL (0.0-1.3); Monocytes % 7.2 %; Neutrophils # 4.8 K/mcL (1.6-8.9); Platelet Count 188 K/mcL (140-400); Red Blood Count 4.02 M/mcL (4.19-5.50); Red Cell Distribution Width 17.8 % (11.5-14.5); Segmented Neutrophils % 56.8 %; White Blood Count 8.4 K/mcL (4.3-11.1)
[2020-01-11 23:45] LABS: Albumin 2.8 g/dL (3.5-5.7); Albumin/Globulin Ratio 0.9 (1.1-2.2); Bilirubin,Total 0.3 mg/dL (0.3-1.0); Calcium 7.9 mg/dL (8.6-10.3); Globulin 3.1 g/dL (2.4-3.5); Magnesium 2.9 mg/dL (1.6-2.6); Phosphorous 4.2 mg/dL (2.7-4.5); Potassium 4.5 mEq/L (3.5-5.1); Total Protein 5.9 g/dL (6.4-8.9)
[2020-01-12 00:07] LABS: Platelet Estimate Normal (Normal)
[2020-01-12] MEDS: lamoTRIgine 100 MG TABLET GTUBE SCH ×3 (00:45→20:20)
[2020-01-12] MEDS: Apixaban 5 MG TABLET GTUBE SCH ×3 (00:45→20:20)
[2020-01-12] MEDS: Metoclopramide 10 MG/10 ML UD.LIQ GTUBE SCH ×5 (00:45→23:35)
[2020-01-12] MEDS: Ringers Solution, Lactated 1,000 ML IVC SCH ×2 (01:09→11:00)
[2020-01-12] MEDS ORDERED: Dextrose Gel 15 GM/37.5 ML TUBE PO PRN ×4 (01:35→14:47)
[2020-01-12] MEDS ORDERED: *HR* Dextrose 50 % in Water (Vial) 50 ML VIAL IVP PRN ×2 (01:35→14:47)
[2020-01-12] MEDS ORDERED: D5% in Water 1,000 ML IVC PRN ×2 (01:35→14:47)
[2020-01-12] MEDS: levETIRAcetam 500 MG/5 ML UDC GTUBE SCH ×3 (01:41→20:18)
[2020-01-12] MEDS: Cefepime HCl 1,000 MG in 0.9 % Sodium Chloride Mini Bag 100 ML IVPB SCH ×2 (01:41→11:00)
[2020-01-12 05:25] LABS: Basophils % 0.2 %; Eosinophils # 0.1 K/mcL (0.0-0.6); Eosinophils % 1.3 %; Hematocrit 38.9 % (37.5-50.1); Hemoglobin 11.3 g/dL (12.9-16.9); Immature Granulocytes % 0.5 % (0-4); Lymphocytes # 2.5 K/mcL (0.6-4.6); Lymphocytes % 29.1 %; Mean Corpuscular Hemoglobin 28.4 pg (28.0-33.3); Mean Corpuscular Volume 97.7 fL (83.0-100.0); Mean Platelet Volume 12.9 fL (9.4-12.4); Monocytes # 0.7 K/mcL (0.0-1.3); Monocytes % 7.9 %; Neutrophils # 5.2 K/mcL (1.6-8.9); Platelet Count 177 K/mcL (140-400); Red Blood Count 3.98 M/mcL (4.19-5.50); Red Cell Distribution Width 17.8 % (11.5-14.5); White Blood Count 8.5 K/mcL (4.3-11.1)
[2020-01-12] MEDS: Insulin LISPRO 300 UNITS/3 ML VIAL SQ SCH ×4 (05:29→23:57)
[2020-01-12 05:45] LABS: BUN/Creatinine Ratio 67 (6-26); Blood Urea Nitrogen 80 mg/dL (6-20); Calcium 8.1 mg/dL (8.6-10.3); Carbon Dioxide 32 mEq/L (23-29); Chloride 124 mEq/L (98-107); Glucose 150 mg/dL (70-105); Magnesium 2.7 mg/dL (1.6-2.6); Osmolality,Calculated 351 (280-300); Phosphorous 3.6 mg/dL (2.7-4.5); Potassium 4.5 mEq/L (3.5-5.1); Sodium 157 mEq/L (136-145); eGFR For African Americans > 60 (> 60); eGFR For Non-African Americans > 60 (> 60)
[2020-01-12] MEDS ORDERED: Cholecalciferol (D-3) 1,000 UNIT (25MCG) TABLET PO SCH (09:00)
[2020-01-12] MEDS ORDERED: Multivitamin Liquid 15 ML UDC GTUBE SCH (09:00)
[2020-01-12] MEDS ORDERED: Nystatin SUSP 5 ML UD.LIQ PO SCH (13:30)
[2020-01-12 14:01] LABS: VBG Ionized Calcium 1.18 mmol/L (1.15-1.35)
[2020-01-12 14:17] LABS: BUN/Creatinine Ratio 70 (6-26); Blood Urea Nitrogen 64 mg/dL (6-20); Calcium 8.1 mg/dL (8.6-10.3); Carbon Dioxide 30 mEq/L (23-29); Chloride 125 mEq/L (98-107); Glucose 148 mg/dL (70-105); Magnesium 2.6 mg/dL (1.6-2.6); Osmolality,Calculated 345 (280-300); Phosphorous 3.1 mg/dL (2.7-4.5); Potassium 4.6 mEq/L (3.5-5.1); Sodium 157 mEq/L (136-145); eGFR For African Americans > 60 (> 60); eGFR For Non-African Americans > 60 (> 60)
[2020-01-12] MEDS ORDERED: Naloxone 0.4 MG/ML INJ IVP PRN (14:47)
[2020-01-12] MEDS: Nystatin SUSP 5 ML UD.LIQ PO SCH ×2 (17:30→20:18)
[2020-01-12] MEDS: Cefepime HCl 1,000 MG in Water for inj. (sterile) 10 ML IVP SCH ×2 (18:00→23:35)
[2020-01-12 19:39] LABS: VBG Ionized Calcium 1.17 mmol/L (1.15-1.35)
[2020-01-12 19:47] LABS: BUN/Creatinine Ratio 81 (6-26); Blood Urea Nitrogen 59 mg/dL (6-20); Calcium 8.3 mg/dL (8.6-10.3); Carbon Dioxide 32 mEq/L (23-29); Chloride 122 mEq/L (98-107); Glucose 135 mg/dL (70-105); Magnesium 2.4 mg/dL (1.6-2.6); Osmolality,Calculated 337 (280-300); Phosphorous 2.7 mg/dL (2.7-4.5); Potassium 4.7 mEq/L (3.5-5.1); Sodium 154 mEq/L (136-145); eGFR For African Americans > 60 (> 60); eGFR For Non-African Americans > 60 (> 60)
[2020-01-13 01:37] LABS: VBG Ionized Calcium 1.21 mmol/L (1.15-1.35)
[2020-01-13 01:53] LABS: BUN/Creatinine Ratio 73 (6-26); Blood Urea Nitrogen 51 mg/dL (6-20); Calcium 8.6 mg/dL (8.6-10.3); Carbon Dioxide 31 mEq/L (23-29); Chloride 121 mEq/L (98-107); Glucose 127 mg/dL (70-105); Magnesium 2.4 mg/dL (1.6-2.6); Osmolality,Calculated 331 (280-300); Phosphorous 2.8 mg/dL (2.7-4.5); Potassium 4.6 mEq/L (3.5-5.1); Sodium 153 mEq/L (136-145); eGFR For African Americans > 60 (> 60); eGFR For Non-African Americans > 60 (> 60)
[2020-01-13] MEDS: Metoclopramide 10 MG/10 ML UD.LIQ GTUBE SCH ×3 (05:46→17:49)
[2020-01-13] MEDS: Insulin LISPRO 300 UNITS/3 ML VIAL SQ SCH ×3 (05:55→17:49)
[2020-01-13] MEDS ORDERED: D5% in Water 1,000 ML IVC SCH ×2 (10:00→16:00)
[2020-01-13] MEDS: Nystatin SUSP 5 ML UD.LIQ PO SCH ×4 (10:27→20:43)
[2020-01-13] MEDS: Cefepime HCl 1,000 MG in Water for inj. (sterile) 10 ML IVP SCH ×3 (10:27→23:58)
[2020-01-13] MEDS: Cholecalciferol (D-3) 1,000 UNIT (25MCG) TABLET PO SCH (10:27)
[2020-01-13] MEDS: levETIRAcetam 500 MG/5 ML UDC GTUBE SCH ×2 (10:27→20:43)
[2020-01-13] MEDS: Multivitamin Liquid 15 ML UDC GTUBE SCH (10:27)
[2020-01-13] MEDS: lamoTRIgine 100 MG TABLET GTUBE SCH ×2 (10:28→20:43)
[2020-01-13] MEDS: Apixaban 5 MG TABLET GTUBE SCH ×2 (10:29→20:42)
[2020-01-14] MEDS: Insulin LISPRO 300 UNITS/3 ML VIAL SQ SCH ×4 (00:14→18:13)
[2020-01-14] MEDS: Metoclopramide 10 MG/10 ML UD.LIQ GTUBE SCH ×4 (01:01→18:02)
[2020-01-14 05:02] LABS: Basophils % 0.2 %; Eosinophils # 0.2 K/mcL (0.0-0.6); Eosinophils % 2.9 %; Hemoglobin 11.4 g/dL (12.9-16.9); Immature Granulocytes % 0.6 % (0-4); Lymphocytes # 1.5 K/mcL (0.6-4.6); Lymphocytes % 28.8 %; Mean Corpuscular Hemoglobin 27.6 pg (28.0-33.3); Mean Platelet Volume 13.4 fL (9.4-12.4); Monocytes # 0.5 K/mcL (0.0-1.3); Monocytes % 8.7 %; Neutrophils # 3.1 K/mcL (1.6-8.9); Platelet Count 157 K/mcL (140-400); Red Blood Count 4.13 M/mcL (4.19-5.50); Red Cell Distribution Width 16.4 % (11.5-14.5); Segmented Neutrophils % 58.8 %; White Blood Count 5.2 K/mcL (4.3-11.1)
[2020-01-14 05:19] LABS: BUN/Creatinine Ratio 48 (6-26); Blood Urea Nitrogen 27 mg/dL (6-20); Calcium 8.3 mg/dL (8.6-10.3); Carbon Dioxide 28 mEq/L (23-29); Chloride 112 mEq/L (98-107); Glucose 103 mg/dL (70-105); Osmolality,Calculated 301 (280-300); Potassium 4.3 mEq/L (3.5-5.1); Sodium 143 mEq/L (136-145); eGFR For African Americans > 60 (> 60); eGFR For Non-African Americans > 60 (> 60)
[2020-01-14] MEDS: Apixaban 5 MG TABLET GTUBE SCH ×2 (09:54→21:59)
[2020-01-14] MEDS: Nystatin SUSP 5 ML UD.LIQ PO SCH ×4 (09:54→21:59)
[2020-01-14] MEDS: levETIRAcetam 500 MG/5 ML UDC GTUBE SCH ×2 (09:54→21:59)
[2020-01-14] MEDS: Multivitamin Liquid 15 ML UDC GTUBE SCH (09:55)
[2020-01-14] MEDS: lamoTRIgine 100 MG TABLET GTUBE SCH ×2 (09:55→21:59)
[2020-01-14] MEDS: Cholecalciferol (D-3) 1,000 UNIT (25MCG) TABLET PO SCH (09:55)
[2020-01-15] MEDS: Insulin LISPRO 300 UNITS/3 ML VIAL SQ SCH ×4 (00:49→17:39)
[2020-01-15] MEDS: Metoclopramide 10 MG/10 ML UD.LIQ GTUBE SCH ×4 (00:49→17:27)
[2020-01-15 03:15] LABS: BUN/Creatinine Ratio 37 (6-26); Blood Urea Nitrogen 19 mg/dL (6-20); Calcium 8.4 mg/dL (8.6-10.3); Carbon Dioxide 31 mEq/L (23-29); Chloride 108 mEq/L (98-107); Glucose 122 mg/dL (70-105); Osmolality,Calculated 298 (280-300); Potassium 4.1 mEq/L (3.5-5.1); Sodium 142 mEq/L (136-145); eGFR For African Americans > 60 (> 60); eGFR For Non-African Americans > 60 (> 60)
[2020-01-15] MEDS ORDERED: Ringers Solution, Lactated 1,000 ML IVC ONE ×2 (08:50→11:49)
[2020-01-15] MEDS ORDERED: 0.9 % Sodium Chloride 500 ML IVC ONE (09:04)
[2020-01-15 09:28] LABS: Basophils % 0.2 %; Eosinophils # 0.2 K/mcL (0.0-0.6); Eosinophils % 2.4 %; Hematocrit 36.9 % (37.5-50.1); Hemoglobin 11.2 g/dL (12.9-16.9); Immature Granulocytes % 0.3 % (0-4); Lymphocytes % 32.1 %; Mean Corpuscular HGB Conc 30.4 g/dL (31.6-35.5); Mean Corpuscular Hemoglobin 27.5 pg (28.0-33.3); Mean Corpuscular Volume 90.7 fL (83.0-100.0); Mean Platelet Volume 13.3 fL (9.4-12.4); Monocytes # 0.6 K/mcL (0.0-1.3); Monocytes % 9.6 %; Platelet Count 177 K/mcL (140-400); Red Blood Count 4.07 M/mcL (4.19-5.50); Red Cell Distribution Width 16.3 % (11.5-14.5); Segmented Neutrophils % 55.4 %; White Blood Count 6.2 K/mcL (4.3-11.1)
[2020-01-15 09:29] LABS: Neutrophils # 3.4 K/mcL (1.6-8.9)
[2020-01-15 09:47] LABS: Troponin I < 0.03 ng/mL (< 0.04)
[2020-01-15 10:01] LABS: Alanine Aminotransferase 53 Units/L (7-52); Albumin 2.5 g/dL (3.5-5.7); Albumin/Globulin Ratio 0.9 (1.1-2.2); Alkaline Phosphatase 49 Units/L (34-104); Aspartate Amino Transferase 49 Units/L (13-39); Bilirubin,Indirect 0.3 mg/dL (0.0-1.0); Bilirubin,Total 0.3 mg/dL (0.3-1.0); Globulin 2.7 g/dL (2.4-3.5); Magnesium 1.8 mg/dL (1.6-2.6); Phosphorous 2.9 mg/dL (2.7-4.5); Total Protein 5.2 g/dL (6.4-8.9)
[2020-01-15] MEDS: Multivitamin Liquid 15 ML UDC GTUBE SCH (10:14)
[2020-01-15] MEDS: Nystatin SUSP 5 ML UD.LIQ PO SCH ×4 (10:14→21:07)
[2020-01-15] MEDS: levETIRAcetam 500 MG/5 ML UDC GTUBE SCH ×2 (10:14→21:07)
[2020-01-15] MEDS: lamoTRIgine 100 MG TABLET GTUBE SCH ×2 (10:15→21:07)
[2020-01-15] MEDS: Cholecalciferol (D-3) 1,000 UNIT (25MCG) TABLET PO SCH (10:15)
[2020-01-15] MEDS: Apixaban 5 MG TABLET GTUBE SCH ×2 (10:15→21:07)
[2020-01-15] MEDS ORDERED: Ringers Solution, Lactated 500 ML IVC ONE (12:31)
[2020-01-15] MEDS ORDERED: Fosfomycin Tromethamine 3 GM Packet PO SCH (16:30)
[2020-01-16] MEDS ORDERED: Albumin 25% 25gram/100mL 25 GM/100 ML IV.SOLN IVPB ONE (00:14)
[2020-01-16] MEDS: Insulin LISPRO 300 UNITS/3 ML VIAL SQ SCH ×3 (00:42→12:50)
[2020-01-16] MEDS: Metoclopramide 10 MG/10 ML UD.LIQ GTUBE SCH ×3 (00:51→12:48)
[2020-01-16 04:47] LABS: Bacteria,Urine Few per hpf (None-Few); Bilirubin,Urine Negative (Negative); Blood,Urine Negative (Negative); Clarity,Urine Turbid (Clear); Color,Urine Yellow (Yellow); Glucose,Urine (UA) Normal (Normal); Ketones,Urine Negative (Negative); Leukocyte Esterase,Urine Large (Negative); Nitrite,Urine Negative (Negative); PH,Urine 7.5 pH Units (5.0-8.0); Protein,Urine Trace mg/dL (Neg-Trace); Specific Gravity,Urine 1.017 (1.010-1.025); WBC,Urine 30-50 per hpf (0-3)
[2020-01-16 06:23] LABS: Basophils % 0.2 %; Eosinophils # 0.1 K/mcL (0.0-0.6); Eosinophils % 1.6 %; Hematocrit 38.4 % (37.5-50.1); Hemoglobin 11.7 g/dL (12.9-16.9); Immature Granulocytes % 0.5 % (0-4); Lymphocytes # 1.3 K/mcL (0.6-4.6); Lymphocytes % 23.4 %; Mean Corpuscular HGB Conc 30.5 g/dL (31.6-35.5); Mean Corpuscular Hemoglobin 27.8 pg (28.0-33.3); Mean Corpuscular Volume 91.2 fL (83.0-100.0); Mean Platelet Volume 12.6 fL (9.4-12.4); Monocytes # 0.4 K/mcL (0.0-1.3); Monocytes % 7.3 %; Neutrophils # 3.8 K/mcL (1.6-8.9); Platelet Count 159 K/mcL (140-400); Red Blood Count 4.21 M/mcL (4.19-5.50); Red Cell Distribution Width 16.6 % (11.5-14.5); White Blood Count 5.6 K/mcL (4.3-11.1)
[2020-01-16 06:41] LABS: BUN/Creatinine Ratio 30 (6-26); Blood Urea Nitrogen 15 mg/dL (6-20); Calcium 8.8 mg/dL (8.6-10.3); Carbon Dioxide 31 mEq/L (23-29); Chloride 106 mEq/L (98-107); Glucose 149 mg/dL (70-105); Osmolality,Calculated 294 (280-300); Potassium 4.3 mEq/L (3.5-5.1); Sodium 140 mEq/L (136-145); eGFR For African Americans > 60 (> 60); eGFR For Non-African Americans > 60 (> 60)
[2020-01-16] MEDS ORDERED: Docusate Oral Soln 100 MG/10 ML UDC GTUBE SCH (09:00)
[2020-01-16] MEDS: Cholecalciferol (D-3) 1,000 UNIT (25MCG) TABLET PO SCH (10:15)
[2020-01-16] MEDS: Multivitamin Liquid 15 ML UDC GTUBE SCH (10:15)
[2020-01-16] MEDS: lamoTRIgine 100 MG TABLET GTUBE SCH (10:15)
[2020-01-16] MEDS: Apixaban 5 MG TABLET GTUBE SCH (10:15)
[2020-01-16] MEDS: levETIRAcetam 500 MG/5 ML UDC GTUBE SCH (10:15)
[2020-01-16] MEDS: Nystatin SUSP 5 ML UD.LIQ PO SCH ×2 (10:15→12:49)
[2020-01-16 12:50] VITALS: BP 135/78
== END 2020-01-16 16:21 | DRG 640 ==
LOC: SUATTDRO 21:13 → ICNU 21:13 → 2ANU 01-12 17:09
PROVIDERS: ADMIT Pediatrics; ATTEND Internal Medicine

== ENCOUNTER 2020-02-25 20:03 | Inpatient (IN) ==
[2020-02-25] MEDS ORDERED: Naloxone 0.4 MG/ML INJ IVP PRN (23:03)
[2020-02-25] MEDS ORDERED: Vancomycin 1,500 MG/265 ML IV.SOLN IVPB ONE (23:45)
[2020-02-26] MEDS ORDERED: *HR* Dextrose 50 % in Water (Vial) 50 ML VIAL IVP PRN (00:11)
[2020-02-26] MEDS ORDERED: D5% in Water 1,000 ML IVC PRN ×2 (00:11→10:57)
[2020-02-26] MEDS ORDERED: Dextrose Gel 15 GM/37.5 ML TUBE PO PRN ×2 (00:11)
[2020-02-26] MEDS: Norepinephrine 4 MG/254 ML IV.SOLN IVC SCH ×3 (00:24→23:35)
[2020-02-26] MEDS: D5% in Water 1,000 ML IVC SCH ×2 (00:24→10:37)
[2020-02-26 02:39] LABS: Calcium 7.8 mg/dL (8.6-10.3); Potassium 4.8 mEq/L (3.5-5.1)
[2020-02-26] MEDS: Insulin LISPRO 300 UNITS/3 ML VIAL SQ SCH ×6 (04:19→23:30)
[2020-02-26 05:14] LABS: Basophils % 0.3 %; Eosinophils # 0.1 K/mcL (0.0-0.6); Eosinophils % 0.5 %; Hematocrit 40.4 % (37.5-50.1); Hemoglobin 11.4 g/dL (12.9-16.9); Immature Granulocytes % 0.4 % (0-4); Lymphocytes % 26.5 %; Mean Corpuscular HGB Conc 28.2 g/dL (31.6-35.5); Mean Corpuscular Hemoglobin 27.5 pg (28.0-33.3); Mean Corpuscular Volume 97.6 fL (83.0-100.0); Mean Platelet Volume 12.9 fL (9.4-12.4); Monocytes # 0.6 K/mcL (0.0-1.3); Monocytes % 4.8 %; Neutrophils # 8.8 K/mcL (1.6-8.9); Nucleated Red Blood Cells 0.2 /100 WBC (0); Platelet Count 207 K/mcL (140-400); Red Blood Count 4.14 M/mcL (4.19-5.50); Red Cell Distribution Width 17.5 % (11.5-14.5); Segmented Neutrophils % 67.5 %
[2020-02-26 05:25] LABS: Lymphocytes # 3.5 K/mcL (0.6-4.6)
[2020-02-26 05:30] LABS: Potassium 4.4 mEq/L (3.5-5.1)
[2020-02-26 05:58] LABS: Platelet Estimate Normal (Normal)
[2020-02-26] MEDS: Apixaban 5 MG TABLET PO SCH ×2 (08:14→20:24)
[2020-02-26 08:50] LABS: ABG Base Excess 6 mEq/L (-2 to 3); ABG HCO3 33 mEq/L (21-27); ABG Oxygen Saturation 91 % (95-98); ABG PCO2 57 mmHg (35-45); ABG PH 7.36 pH Units (7.32-7.45); ABG PO2 65 mmHg (85-104); ABG TCO2 34 mEq/L (20-26)
[2020-02-26 12:19] LABS: Calcium 8.1 mg/dL (8.6-10.3); Phosphorous 2.7 mg/dL (2.7-4.5); Potassium 4.3 mEq/L (3.5-5.1)
[2020-02-26] MEDS ORDERED: MOM Conc 10 ML UD.LIQ GTUBE PRN (14:41)
[2020-02-26] MEDS ORDERED: *HR* LORazepam 2 MG/ML VIAL IVP PRN (14:44)
[2020-02-26] MEDS: MetroNIDAZOLE 500 MG/100 ML 500 MG/100 ML BAG IVPB SCH ×2 (16:38→23:33)
[2020-02-26] MEDS ORDERED: Colistin (Colistimethate) 300 MG in 0.9 % Sodium Chloride 50 ML IVPB ONE (17:00)
[2020-02-26] MEDS ORDERED: Colistin (Colistimethate) 150 MG VIAL IVPB ONE (17:00)
[2020-02-26 17:12] LABS: Calcium 8.1 mg/dL (8.6-10.3); Magnesium 2.9 mg/dL (1.6-2.6); Potassium 4.5 mEq/L (3.5-5.1)
[2020-02-26] MEDS ORDERED: levoFLOXacin 500 MG/100 ML 500 MG/100 ML BAG IVPB SCH (18:00)
[2020-02-26 18:49] LABS: Phosphorous 2.7 mg/dL (2.7-4.5)
[2020-02-26] MEDS: levETIRAcetam 500 MG/5 ML UDC GTUBE SCH (20:23)
[2020-02-26] MEDS: Sennosides 8.6 MG TABLET PO SCH (20:24)
[2020-02-26] MEDS: lamoTRIgine 100 MG TABLET GTUBE SCH (20:24)
[2020-02-26 21:05] LABS: BUN/Creatinine Ratio 48 (6-26); Blood Urea Nitrogen 60 mg/dL (6-20); Calcium 7.9 mg/dL (8.6-10.3); Carbon Dioxide 31 mEq/L (23-29); Chloride 118 mEq/L (98-107); Glucose 257 mg/dL (70-105); Magnesium 2.5 mg/dL (1.6-2.6); Osmolality,Calculated 340 (280-300); Phosphorous 2.5 mg/dL (2.7-4.5); Potassium 4.5 mEq/L (3.5-5.1); Sodium 152 mEq/L (136-145); eGFR For African Americans > 60 (> 60); eGFR For Non-African Americans 59 (> 60)
[2020-02-27 00:50] LABS: BUN/Creatinine Ratio 50 (6-26); Blood Urea Nitrogen 57 mg/dL (6-20); Calcium 7.8 mg/dL (8.6-10.3); Carbon Dioxide 31 mEq/L (23-29); Chloride 119 mEq/L (98-107); Glucose 224 mg/dL (70-105); Magnesium 2.6 mg/dL (1.6-2.6); Osmolality,Calculated 339 (280-300); Phosphorous 2.2 mg/dL (2.7-4.5); Potassium 4.1 mEq/L (3.5-5.1); Sodium 153 mEq/L (136-145); eGFR For African Americans > 60 (> 60); eGFR For Non-African Americans > 60 (> 60)
[2020-02-27] MEDS ORDERED: Vancomycin 1,500 MG/265 ML IV.SOLN IVPB ONE (01:00)
[2020-02-27] MEDS ORDERED: Calcium Gluconate 1gm/50mL 1 GM/50 ML BAG IVPB PRN (01:24)
[2020-02-27] MEDS: D5% in Water 1,000 ML IVC SCH ×2 (01:56→13:41)
[2020-02-27] MEDS: Insulin LISPRO 300 UNITS/3 ML VIAL SQ SCH ×5 (03:47→20:29)
[2020-02-27 04:36] LABS: Basophils % 0.2 %; Immature Granulocytes % 0.2 % (0-4)
[2020-02-27 04:38] LABS: Eosinophils # 0.4 K/mcL (0.0-0.6); Eosinophils % 3.8 %; Hematocrit 35.4 % (37.5-50.1); Immature Platelets 13.3 % (1.1-6.1); Lymphocytes # 2.2 K/mcL (0.6-4.6); Lymphocytes % 24.3 %; Mean Corpuscular HGB Conc 28.2 g/dL (31.6-35.5); Mean Corpuscular Hemoglobin 27.4 pg (28.0-33.3); Mean Platelet Volume 13.8 fL (9.4-12.4); Monocytes # 0.5 K/mcL (0.0-1.3); Monocytes % 5.3 %; Neutrophils # 6.1 K/mcL (1.6-8.9); Platelet Count 148 K/mcL (140-400); Red Blood Count 3.65 M/mcL (4.19-5.50); Red Cell Distribution Width 17.2 % (11.5-14.5); Segmented Neutrophils % 66.2 %; White Blood Count 9.2 K/mcL (4.3-11.1)
[2020-02-27 04:52] LABS: BUN/Creatinine Ratio 51 (6-26); Blood Urea Nitrogen 48 mg/dL (6-20); Calcium 7.4 mg/dL (8.6-10.3); Carbon Dioxide 31 mEq/L (23-29); Chloride 117 mEq/L (98-107); Glucose 211 mg/dL (70-105); Magnesium 2.4 mg/dL (1.6-2.6); Osmolality,Calculated 329 (280-300); Phosphorous 2.8 mg/dL (2.7-4.5); Potassium 3.8 mEq/L (3.5-5.1); Sodium 150 mEq/L (136-145); eGFR For African Americans > 60 (> 60); eGFR For Non-African Americans > 60 (> 60)
[2020-02-27] MEDS ORDERED: Colistin (Colistimethate) 110 MG in 0.9 % Sodium Chloride 50 ML IVPB SCH (05:00)
[2020-02-27] MEDS ORDERED: Colistin (Colistimethate) 150 MG VIAL IVPB SCH (05:00)
[2020-02-27 05:40] LABS: Platelet Estimate Normal (Normal)
[2020-02-27] MEDS: Apixaban 5 MG TABLET PO SCH ×2 (08:42→20:36)
[2020-02-27] MEDS: Sennosides 8.6 MG TABLET PO SCH ×2 (08:42→20:36)
[2020-02-27] MEDS: Cholecalciferol (D-3) 1,000 UNIT (25MCG) TABLET PO SCH (08:42)
[2020-02-27] MEDS: MetroNIDAZOLE 500 MG/100 ML 500 MG/100 ML BAG IVPB SCH ×2 (08:43→15:01)
[2020-02-27] MEDS: levETIRAcetam 500 MG/5 ML UDC GTUBE SCH ×2 (08:44→20:36)
[2020-02-27] MEDS: lamoTRIgine 100 MG TABLET GTUBE SCH ×2 (08:45→20:36)
[2020-02-27] MEDS: Ketoconazole 2% CRM 15 GM TUBE TP SCH ×2 (08:46→08:47)
[2020-02-27] MEDS: Clotrimazole 1% CRM 15 GM TUBE TP SCH (08:47)
[2020-02-27 10:23] LABS: BUN/Creatinine Ratio 52 (6-26); Blood Urea Nitrogen 44 mg/dL (6-20); Calcium 7.7 mg/dL (8.6-10.3); Carbon Dioxide 31 mEq/L (23-29); Chloride 114 mEq/L (98-107); Glucose 220 mg/dL (70-105); Magnesium 2.3 mg/dL (1.6-2.6); Osmolality,Calculated 324 (280-300); Potassium 3.9 mEq/L (3.5-5.1); Sodium 148 mEq/L (136-145); eGFR For African Americans > 60 (> 60); eGFR For Non-African Americans > 60 (> 60)
[2020-02-27] MEDS: SODIUM CHLORIDE 0.9% IVPB SCH (17:14)
[2020-02-27] MEDS: COLISTIN IVPB SCH (17:14)
[2020-02-28] MEDS: MetroNIDAZOLE 500 MG/100 ML 500 MG/100 ML BAG IVPB SCH ×4 (00:03→23:54)
[2020-02-28] MEDS: Insulin LISPRO 300 UNITS/3 ML VIAL SQ SCH ×7 (00:04→23:23)
[2020-02-28 04:21] LABS: Basophils % 0.1 %
[2020-02-28 04:23] LABS: Eosinophils # 0.2 K/mcL (0.0-0.6); Eosinophils % 3.5 %; Hematocrit 33.1 % (37.5-50.1); Hemoglobin 9.7 g/dL (12.9-16.9); Immature Granulocytes % 0.4 % (0-4); Immature Platelets 15.3 % (1.1-6.1); Lymphocytes # 1.4 K/mcL (0.6-4.6); Lymphocytes % 19.8 %; Mean Corpuscular HGB Conc 29.3 g/dL (31.6-35.5); Mean Corpuscular Hemoglobin 27.7 pg (28.0-33.3); Mean Corpuscular Volume 94.6 fL (83.0-100.0); Mean Platelet Volume 13.2 fL (9.4-12.4); Monocytes # 0.6 K/mcL (0.0-1.3); Monocytes % 8.1 %; Neutrophils # 4.6 K/mcL (1.6-8.9); Platelet Count 141 K/mcL (140-400); Red Cell Distribution Width 16.5 % (11.5-14.5); Segmented Neutrophils % 68.1 %; White Blood Count 6.8 K/mcL (4.3-11.1)
[2020-02-28] MEDS: SODIUM CHLORIDE 0.9% IVPB SCH (04:23)
[2020-02-28] MEDS: COLISTIN IVPB SCH (04:23)
[2020-02-28 04:36] LABS: BUN/Creatinine Ratio 47 (6-26); Blood Urea Nitrogen 28 mg/dL (6-20); Calcium 8.3 mg/dL (8.6-10.3); Carbon Dioxide 30 mEq/L (23-29); Chloride 117 mEq/L (98-107); Glucose 100 mg/dL (70-105); Magnesium 2.1 mg/dL (1.6-2.6); Osmolality,Calculated 316 (280-300); Potassium 4.5 mEq/L (3.5-5.1); Sodium 150 mEq/L (136-145); eGFR For African Americans > 60 (> 60); eGFR For Non-African Americans > 60 (> 60)
[2020-02-28] MEDS: Apixaban 5 MG TABLET PO SCH (08:55)
[2020-02-28] MEDS: lamoTRIgine 100 MG TABLET GTUBE SCH ×2 (08:55→19:48)
[2020-02-28] MEDS: Cholecalciferol (D-3) 1,000 UNIT (25MCG) TABLET PO SCH (08:55)
[2020-02-28] MEDS: levETIRAcetam 500 MG/5 ML UDC GTUBE SCH ×2 (08:55→19:49)
[2020-02-28] MEDS: Sennosides 8.6 MG TABLET PO SCH ×3 (08:55→20:09)
[2020-02-28] MEDS: Ketoconazole 2% CRM 15 GM TUBE TP SCH ×2 (09:05→09:08)
[2020-02-28] MEDS ORDERED: D5% in Water 1,000 ML IVC SCH (11:15)
[2020-02-28] MEDS: Clotrimazole 1% CRM 15 GM TUBE TP SCH (12:11)
[2020-02-28] MEDS ORDERED: Dextrose Gel 15 GM/37.5 ML TUBE PO PRN ×2 (12:38)
[2020-02-28] MEDS ORDERED: Naloxone 0.4 MG/ML INJ IVP PRN (12:38)
[2020-02-28] MEDS ORDERED: *HR* Dextrose 50 % in Water (Vial) 50 ML VIAL IVP PRN (12:38)
[2020-02-28] MEDS ORDERED: D5% in Water 1,000 ML IVC PRN (12:38)
[2020-02-28] MEDS ORDERED: MOM Conc 10 ML UD.LIQ GTUBE PRN (12:38)
[2020-02-28] MEDS ORDERED: SODIUM CHLORIDE 0.9% IVPB SCH (17:00)
[2020-02-28] MEDS ORDERED: COLISTIN IVPB SCH (17:00)
[2020-02-28 17:58] LABS: BUN/Creatinine Ratio 42 (6-26); Blood Urea Nitrogen 22 mg/dL (6-20); Calcium 8.6 mg/dL (8.6-10.3); Carbon Dioxide 32 mEq/L (23-29); Chloride 114 mEq/L (98-107); Glucose 125 mg/dL (70-105); Osmolality,Calculated 309 (280-300); Potassium 4.3 mEq/L (3.5-5.1); Sodium 147 mEq/L (136-145); eGFR For African Americans > 60 (> 60); eGFR For Non-African Americans > 60 (> 60)
[2020-02-28] MEDS: Colistin (Colistimethate) 180 MG in 0.9 % Sodium Chloride 50 ML IVPB SCH (18:23)
[2020-02-28] MEDS ORDERED: Apixaban 5 MG TABLET PO SCH (21:00)
[2020-02-29 03:03] LABS: VBG Ionized Calcium 1.34 mmol/L (1.15-1.35)
[2020-02-29 03:04] LABS: Basophils % 0.2 %; Hemoglobin 9.5 g/dL (12.9-16.9); Mean Corpuscular Hemoglobin 27.5 pg (28.0-33.3); Mean Corpuscular Volume 94.2 fL (83.0-100.0)
[2020-02-29 03:06] LABS: Eosinophils # 0.2 K/mcL (0.0-0.6); Eosinophils % 3.6 %; Hematocrit 32.5 % (37.5-50.1); Immature Granulocytes % 0.5 % (0-4); Immature Platelets 14.7 % (1.1-6.1); Lymphocytes # 1.5 K/mcL (0.6-4.6); Lymphocytes % 27.3 %; Mean Corpuscular HGB Conc 29.2 g/dL (31.6-35.5); Monocytes # 0.5 K/mcL (0.0-1.3); Monocytes % 8.9 %; Neutrophils # 3.3 K/mcL (1.6-8.9); Platelet Count 127 K/mcL (140-400); Red Blood Count 3.45 M/mcL (4.19-5.50); Red Cell Distribution Width 16.4 % (11.5-14.5); Segmented Neutrophils % 59.5 %; White Blood Count 5.5 K/mcL (4.3-11.1)
[2020-02-29 03:21] LABS: Alanine Aminotransferase 25 Units/L (7-52); Albumin 2.6 g/dL (3.5-5.7); Alkaline Phosphatase 29 Units/L (34-104); Aspartate Amino Transferase 27 Units/L (13-39); BUN/Creatinine Ratio 32 (6-26); Bilirubin,Total 0.3 mg/dL (0.3-1.0); Blood Urea Nitrogen 17 mg/dL (6-20); Carbon Dioxide 33 mEq/L (23-29); Chloride 112 mEq/L (98-107); Globulin 2.6 g/dL (2.4-3.5); Glucose 135 mg/dL (70-105); Magnesium 1.5 mg/dL (1.6-2.6); Osmolality,Calculated 306 (280-300); Phosphorous 3.3 mg/dL (2.7-4.5); Potassium 4.5 mEq/L (3.5-5.1); Sodium 146 mEq/L (136-145); Total Protein 5.2 g/dL (6.4-8.9); eGFR For African Americans > 60 (> 60); eGFR For Non-African Americans > 60 (> 60)
[2020-02-29] MEDS: Insulin LISPRO 300 UNITS/3 ML VIAL SQ SCH ×5 (03:33→20:32)
[2020-02-29] MEDS: *HR* LORazepam 2 MG/ML VIAL IVP PRN ×2 (05:54→12:02)
[2020-02-29] MEDS: Colistin (Colistimethate) 180 MG in 0.9 % Sodium Chloride 50 ML IVPB SCH ×2 (05:54→18:17)
[2020-02-29] MEDS: Apixaban 5 MG TABLET GTUBE SCH ×2 (10:18→21:44)
[2020-02-29] MEDS: levETIRAcetam 500 MG/5 ML UDC GTUBE SCH ×2 (10:18→21:44)
[2020-02-29] MEDS: lamoTRIgine 100 MG TABLET GTUBE SCH ×2 (10:18→21:44)
[2020-02-29] MEDS: MetroNIDAZOLE 500 MG/100 ML 500 MG/100 ML BAG IVPB SCH ×2 (10:18→17:17)
[2020-02-29] MEDS: Clotrimazole 1% CRM 15 GM TUBE TP SCH (10:19)
[2020-02-29] MEDS: Cholecalciferol (D-3) 1,000 UNIT (25MCG) TABLET PO SCH (10:20)
[2020-02-29] MEDS: Ketoconazole 2% CRM 15 GM TUBE TP SCH (10:20)
[2020-03-01] MEDS: MetroNIDAZOLE 500 MG/100 ML 500 MG/100 ML BAG IVPB SCH ×4 (00:45→23:54)
[2020-03-01] MEDS: Insulin LISPRO 300 UNITS/3 ML VIAL SQ SCH ×7 (00:55→23:59)
[2020-03-01 03:26] LABS: Basophils % 0.2 %; Eosinophils # 0.2 K/mcL (0.0-0.6); Eosinophils % 3.5 %; Hematocrit 32.3 % (37.5-50.1); Hemoglobin 9.7 g/dL (12.9-16.9); Immature Granulocytes % 0.3 % (0-4); Lymphocytes # 1.6 K/mcL (0.6-4.6); Lymphocytes % 25.4 %; Mean Corpuscular Volume 93.4 fL (83.0-100.0); Mean Platelet Volume 12.5 fL (9.4-12.4); Monocytes # 0.4 K/mcL (0.0-1.3); Monocytes % 6.9 %; Platelet Count 169 K/mcL (140-400); Red Blood Count 3.46 M/mcL (4.19-5.50); Red Cell Distribution Width 16.2 % (11.5-14.5); Segmented Neutrophils % 63.7 %; White Blood Count 6.3 K/mcL (4.3-11.1)
[2020-03-01 03:43] LABS: BUN/Creatinine Ratio 25 (6-26); Blood Urea Nitrogen 13 mg/dL (6-20); Calcium 9.1 mg/dL (8.6-10.3); Carbon Dioxide 35 mEq/L (23-29); Chloride 108 mEq/L (98-107); Glucose 139 mg/dL (70-105); Magnesium 1.2 mg/dL (1.6-2.6); Osmolality,Calculated 300 (280-300); Phosphorous 3.7 mg/dL (2.7-4.5); Potassium 4.7 mEq/L (3.5-5.1); Sodium 144 mEq/L (136-145); eGFR For African Americans > 60 (> 60); eGFR For Non-African Americans > 60 (> 60)
[2020-03-01] MEDS: Colistin (Colistimethate) 180 MG in 0.9 % Sodium Chloride 50 ML IVPB SCH ×2 (05:15→18:21)
[2020-03-01] MEDS: lamoTRIgine 100 MG TABLET GTUBE SCH ×2 (08:47→20:36)
[2020-03-01] MEDS: Cholecalciferol (D-3) 1,000 UNIT (25MCG) TABLET PO SCH (08:47)
[2020-03-01] MEDS: levETIRAcetam 500 MG/5 ML UDC GTUBE SCH ×2 (08:47→20:36)
[2020-03-01] MEDS: Apixaban 5 MG TABLET GTUBE SCH ×2 (08:48→20:36)
[2020-03-01] MEDS: Clotrimazole 1% CRM 15 GM TUBE TP SCH (08:58)
[2020-03-01] MEDS: Ketoconazole 2% CRM 15 GM TUBE TP SCH (08:58)
[2020-03-01] MEDS: *HR* LORazepam 2 MG/ML VIAL IVP PRN ×2 (12:48→23:55)
[2020-03-02 03:51] LABS: Basophils % 0.3 %; Eosinophils # 0.2 K/mcL (0.0-0.6); Eosinophils % 2.9 %; Hematocrit 31.5 % (37.5-50.1); Hemoglobin 9.7 g/dL (12.9-16.9); Immature Granulocytes % 0.5 % (0-4); Lymphocytes # 2.2 K/mcL (0.6-4.6); Lymphocytes % 29.2 %; Mean Corpuscular HGB Conc 30.8 g/dL (31.6-35.5); Mean Corpuscular Hemoglobin 27.8 pg (28.0-33.3); Mean Corpuscular Volume 90.3 fL (83.0-100.0); Mean Platelet Volume 12.7 fL (9.4-12.4); Monocytes # 0.6 K/mcL (0.0-1.3); Monocytes % 7.6 %; Neutrophils # 4.5 K/mcL (1.6-8.9); Platelet Count 203 K/mcL (140-400); Red Blood Count 3.49 M/mcL (4.19-5.50); Red Cell Distribution Width 16.1 % (11.5-14.5); Segmented Neutrophils % 59.5 %; White Blood Count 7.5 K/mcL (4.3-11.1)
[2020-03-02 03:52] LABS: BUN/Creatinine Ratio 25 (6-26); Blood Urea Nitrogen 14 mg/dL (6-20); Calcium 9.5 mg/dL (8.6-10.3); Carbon Dioxide 34 mEq/L (23-29); Chloride 103 mEq/L (98-107); Glucose 154 mg/dL (70-105); Magnesium 1.4 mg/dL (1.6-2.6); Osmolality,Calculated 290 (280-300); Phosphorous 3.5 mg/dL (2.7-4.5); Potassium 4.7 mEq/L (3.5-5.1); Sodium 138 mEq/L (136-145); eGFR For African Americans > 60 (> 60); eGFR For Non-African Americans > 60 (> 60)
[2020-03-02] MEDS: Colistin (Colistimethate) 180 MG in 0.9 % Sodium Chloride 50 ML IVPB SCH ×2 (04:48→17:08)
[2020-03-02] MEDS: Insulin LISPRO 300 UNITS/3 ML VIAL SQ SCH ×5 (05:08→21:03)
[2020-03-02] MEDS: levETIRAcetam 500 MG/5 ML UDC GTUBE SCH ×2 (07:58→21:35)
[2020-03-02] MEDS: MetroNIDAZOLE 500 MG/100 ML 500 MG/100 ML BAG IVPB SCH ×2 (07:58→17:34)
[2020-03-02] MEDS: Cholecalciferol (D-3) 1,000 UNIT (25MCG) TABLET PO SCH (07:59)
[2020-03-02] MEDS: Apixaban 5 MG TABLET GTUBE SCH ×2 (07:59→21:35)
[2020-03-02] MEDS: lamoTRIgine 100 MG TABLET GTUBE SCH ×2 (07:59→21:35)
[2020-03-02] MEDS: Clotrimazole 1% CRM 15 GM TUBE TP SCH (08:00)
[2020-03-02] MEDS: Ketoconazole 2% CRM 15 GM TUBE TP SCH (08:00)
[2020-03-02] MEDS ORDERED: Ipratropium/Albuterol Neb 3 ML IH PRN (10:28)
[2020-03-03] MEDS: Insulin LISPRO 300 UNITS/3 ML VIAL SQ SCH ×6 (00:12→21:15)
[2020-03-03] MEDS: MetroNIDAZOLE 500 MG/100 ML 500 MG/100 ML BAG IVPB SCH ×3 (00:20→16:02)
[2020-03-03 02:46] LABS: Basophils % 0.5 %; Eosinophils # 0.2 K/mcL (0.0-0.6); Eosinophils % 2.5 %; Hematocrit 33.2 % (37.5-50.1); Hemoglobin 10.3 g/dL (12.9-16.9); Immature Granulocytes % 0.6 % (0-4); Lymphocytes # 2.3 K/mcL (0.6-4.6); Lymphocytes % 26.4 %; Mean Corpuscular Hemoglobin 27.8 pg (28.0-33.3); Mean Corpuscular Volume 89.7 fL (83.0-100.0); Mean Platelet Volume 11.7 fL (9.4-12.4); Monocytes # 0.6 K/mcL (0.0-1.3); Monocytes % 7.4 %; Neutrophils # 5.4 K/mcL (1.6-8.9); Platelet Count 252 K/mcL (140-400); Red Cell Distribution Width 16.2 % (11.5-14.5); Segmented Neutrophils % 62.6 %; White Blood Count 8.7 K/mcL (4.3-11.1)
[2020-03-03 03:12] LABS: BUN/Creatinine Ratio 21 (6-26); Blood Urea Nitrogen 12 mg/dL (6-20); Calcium 9.5 mg/dL (8.6-10.3); Carbon Dioxide 33 mEq/L (23-29); Chloride 101 mEq/L (98-107); Glucose 107 mg/dL (70-105); Magnesium 1.4 mg/dL (1.6-2.6); Osmolality,Calculated 284 (280-300); Phosphorous 3.2 mg/dL (2.7-4.5); Potassium 4.6 mEq/L (3.5-5.1); Sodium 137 mEq/L (136-145); eGFR For African Americans > 60 (> 60); eGFR For Non-African Americans > 60 (> 60)
[2020-03-03] MEDS: Colistin (Colistimethate) 180 MG in 0.9 % Sodium Chloride 50 ML IVPB SCH ×2 (06:04→17:04)
[2020-03-03] MEDS: levETIRAcetam 500 MG/5 ML UDC GTUBE SCH ×2 (08:36→21:21)
[2020-03-03] MEDS: lamoTRIgine 100 MG TABLET GTUBE SCH ×2 (08:37→21:21)
[2020-03-03] MEDS: Apixaban 5 MG TABLET GTUBE SCH ×2 (08:37→21:21)
[2020-03-03] MEDS: Clotrimazole 1% CRM 15 GM TUBE TP SCH (08:37)
[2020-03-03] MEDS: Cholecalciferol (D-3) 1,000 UNIT (25MCG) TABLET PO SCH (08:37)
[2020-03-03] MEDS: Ketoconazole 2% CRM 15 GM TUBE TP SCH (08:37)
[2020-03-03] MEDS ORDERED: 0.9 % Sodium Chloride 500 ML IVC ONE (11:41)
[2020-03-04] MEDS: MetroNIDAZOLE 500 MG/100 ML 500 MG/100 ML BAG IVPB SCH ×4 (00:10→23:31)
[2020-03-04 04:22] LABS: Basophils % 0.5 %; Eosinophils # 0.2 K/mcL (0.0-0.6); Eosinophils % 1.8 %; Hemoglobin 10.4 g/dL (12.9-16.9); Immature Granulocytes % 1.9 % (0-4); Lymphocytes # 2.3 K/mcL (0.6-4.6); Lymphocytes % 26.6 %; Mean Corpuscular HGB Conc 31.5 g/dL (31.6-35.5); Mean Corpuscular Hemoglobin 28.5 pg (28.0-33.3); Mean Corpuscular Volume 90.4 fL (83.0-100.0); Monocytes # 0.9 K/mcL (0.0-1.3); Neutrophils # 5.1 K/mcL (1.6-8.9); Platelet Count 294 K/mcL (140-400); Red Blood Count 3.65 M/mcL (4.19-5.50); Segmented Neutrophils % 59.2 %; White Blood Count 8.6 K/mcL (4.3-11.1)
[2020-03-04] MEDS: Insulin LISPRO 300 UNITS/3 ML VIAL SQ SCH ×6 (04:30→23:30)
[2020-03-04 04:42] LABS: BUN/Creatinine Ratio 30 (6-26); Blood Urea Nitrogen 18 mg/dL (6-20); Calcium 8.9 mg/dL (8.6-10.3); Carbon Dioxide 29 mEq/L (23-29); Chloride 103 mEq/L (98-107); Glucose 104 mg/dL (70-105); Magnesium 1.7 mg/dL (1.6-2.6); Osmolality,Calculated 286 (280-300); Phosphorous 3.6 mg/dL (2.7-4.5); Potassium 4.4 mEq/L (3.5-5.1); Sodium 137 mEq/L (136-145); eGFR For African Americans > 60 (> 60); eGFR For Non-African Americans > 60 (> 60)
[2020-03-04] MEDS: Colistin (Colistimethate) 180 MG in 0.9 % Sodium Chloride 50 ML IVPB SCH ×2 (05:15→16:59)
[2020-03-04] MEDS: Cholecalciferol (D-3) 1,000 UNIT (25MCG) TABLET PO SCH (07:29)
[2020-03-04] MEDS: levETIRAcetam 500 MG/5 ML UDC GTUBE SCH ×2 (07:29→19:38)
[2020-03-04] MEDS: Apixaban 5 MG TABLET GTUBE SCH ×2 (07:30→19:38)
[2020-03-04] MEDS: lamoTRIgine 100 MG TABLET GTUBE SCH ×2 (07:30→19:38)
[2020-03-04] MEDS: Clotrimazole 1% CRM 15 GM TUBE TP SCH (07:30)
[2020-03-04] MEDS: Ketoconazole 2% CRM 15 GM TUBE TP SCH (07:30)
[2020-03-04] MEDS: 0.9 % Sodium Chloride 1,000 ML IVC SCH ×2 (11:19→21:29)
[2020-03-05 03:13] LABS: Basophils # 0.1 K/mcL (0.0-0.2); Basophils % 0.6 %; Eosinophils # 0.1 K/mcL (0.0-0.6); Eosinophils % 1.7 %; Hematocrit 31.9 % (37.5-50.1); Hemoglobin 9.7 g/dL (12.9-16.9); Immature Granulocytes % 2.6 % (0-4); Lymphocytes # 2.9 K/mcL (0.6-4.6); Lymphocytes % 37.4 %; Mean Corpuscular HGB Conc 30.4 g/dL (31.6-35.5); Mean Corpuscular Hemoglobin 27.8 pg (28.0-33.3); Mean Corpuscular Volume 91.4 fL (83.0-100.0); Mean Platelet Volume 11.3 fL (9.4-12.4); Monocytes # 0.8 K/mcL (0.0-1.3); Monocytes % 10.8 %; Neutrophils # 3.7 K/mcL (1.6-8.9); Platelet Count 312 K/mcL (140-400); Red Blood Count 3.49 M/mcL (4.19-5.50); Red Cell Distribution Width 16.6 % (11.5-14.5); Segmented Neutrophils % 46.9 %; White Blood Count 7.8 K/mcL (4.3-11.1)
[2020-03-05 03:36] LABS: BUN/Creatinine Ratio 30 (6-26); Blood Urea Nitrogen 20 mg/dL (6-20); Calcium 8.8 mg/dL (8.6-10.3); Carbon Dioxide 31 mEq/L (23-29); Chloride 104 mEq/L (98-107); Glucose 112 mg/dL (70-105); Magnesium 1.6 mg/dL (1.6-2.6); Osmolality,Calculated 291 (280-300); Phosphorous 3.6 mg/dL (2.7-4.5); Potassium 4.4 mEq/L (3.5-5.1); Sodium 139 mEq/L (136-145); eGFR For African Americans > 60 (> 60); eGFR For Non-African Americans > 60 (> 60)
[2020-03-05] MEDS: Insulin LISPRO 300 UNITS/3 ML VIAL SQ SCH ×5 (03:48→21:03)
[2020-03-05] MEDS: Colistin (Colistimethate) 180 MG in 0.9 % Sodium Chloride 50 ML IVPB SCH ×2 (04:46→17:57)
[2020-03-05] MEDS: Cholecalciferol (D-3) 1,000 UNIT (25MCG) TABLET PO SCH (07:46)
[2020-03-05] MEDS: levETIRAcetam 500 MG/5 ML UDC GTUBE SCH ×2 (07:46→19:42)
[2020-03-05] MEDS: lamoTRIgine 100 MG TABLET GTUBE SCH ×2 (07:47→19:42)
[2020-03-05] MEDS: Apixaban 5 MG TABLET GTUBE SCH ×2 (07:47→19:43)
[2020-03-05] MEDS: Ketoconazole 2% CRM 15 GM TUBE TP SCH (07:47)
[2020-03-05] MEDS: Clotrimazole 1% CRM 15 GM TUBE TP SCH (07:48)
[2020-03-05] MEDS: MetroNIDAZOLE 500 MG/100 ML 500 MG/100 ML BAG IVPB SCH ×2 (08:21→16:19)
[2020-03-05] MEDS: Ondansetron 4 MG/2 ML VIAL IVP SCH ×2 (16:15→21:51)
[2020-03-06] MEDS: Insulin LISPRO 300 UNITS/3 ML VIAL SQ SCH ×3 (00:15→07:47)
[2020-03-06] MEDS: MetroNIDAZOLE 500 MG/100 ML 500 MG/100 ML BAG IVPB SCH ×2 (00:30→10:26)
[2020-03-06 03:34] LABS: Basophils % 0.3 %; Eosinophils # 0.1 K/mcL (0.0-0.6); Eosinophils % 1.3 %; Hematocrit 33.8 % (37.5-50.1); Hemoglobin 10.2 g/dL (12.9-16.9); Immature Granulocytes % 2.5 % (0-4); Lymphocytes # 2.2 K/mcL (0.6-4.6); Lymphocytes % 24.7 %; Mean Corpuscular HGB Conc 30.2 g/dL (31.6-35.5); Mean Corpuscular Hemoglobin 28.2 pg (28.0-33.3); Mean Corpuscular Volume 93.4 fL (83.0-100.0); Mean Platelet Volume 11.6 fL (9.4-12.4); Monocytes % 10.5 %; Neutrophils # 5.5 K/mcL (1.6-8.9); Platelet Count 322 K/mcL (140-400); Red Blood Count 3.62 M/mcL (4.19-5.50); Segmented Neutrophils % 60.7 %
[2020-03-06] MEDS: Ondansetron 4 MG/2 ML VIAL IVP SCH ×2 (03:43→10:26)
[2020-03-06 03:57] LABS: BUN/Creatinine Ratio 25 (6-26); Blood Urea Nitrogen 18 mg/dL (6-20); Carbon Dioxide 31 mEq/L (23-29); Chloride 101 mEq/L (98-107); Glucose 114 mg/dL (70-105); Magnesium 1.6 mg/dL (1.6-2.6); Osmolality,Calculated 287 (280-300); Phosphorous 4.1 mg/dL (2.7-4.5); Potassium 4.3 mEq/L (3.5-5.1); Sodium 137 mEq/L (136-145); eGFR For African Americans > 60 (> 60); eGFR For Non-African Americans > 60 (> 60)
[2020-03-06] MEDS: Colistin (Colistimethate) 180 MG in 0.9 % Sodium Chloride 50 ML IVPB SCH (04:26)
[2020-03-06] MEDS: Cholecalciferol (D-3) 1,000 UNIT (25MCG) TABLET PO SCH (10:26)
[2020-03-06] MEDS: levETIRAcetam 500 MG/5 ML UDC GTUBE SCH (10:27)
[2020-03-06] MEDS: lamoTRIgine 100 MG TABLET GTUBE SCH (10:27)
[2020-03-06] MEDS: Apixaban 5 MG TABLET GTUBE SCH (10:27)
[2020-03-06] MEDS: Clotrimazole 1% CRM 15 GM TUBE TP SCH (10:27)
[2020-03-06] MEDS: Ketoconazole 2% CRM 15 GM TUBE TP SCH (10:27)
[2020-03-06 11:28] VITALS: BP 124/65
== END 2020-03-06 13:30 | DRG 871 ==
LOC: ICNU → SUATTDRO 23:03 → 2ANU 02-28 15:23
PROVIDERS: ADMIT Internal Medicine; ATTEND Internal Medicine

== ENCOUNTER 2020-06-13 22:11 | Inpatient (IN) ==
[2020-06-13] MEDS ORDERED: Acetaminophen 325 MG TABLET PO PRN (23:50)
[2020-06-13] MEDS ORDERED: Ondansetron 4 MG/2 ML VIAL IVP PRN (23:50)
[2020-06-13] MEDS ORDERED: Dextrose Gel 15 GM/37.5 ML TUBE PO PRN ×2 (23:56)
[2020-06-13] MEDS ORDERED: *HR* Dextrose 50 % in Water (Vial) 50 ML VIAL IVP PRN (23:56)
[2020-06-13] MEDS ORDERED: D5% in Water 1,000 ML IVC PRN (23:56)
[2020-06-14] MEDS ORDERED: Meropenem 1,000 MG in Water for inj. (sterile) 20 ML IVP SCH (00:53)
[2020-06-14] MEDS: D5% in Water 1,000 ML IVC SCH ×2 (02:50→08:02)
[2020-06-14] MEDS ORDERED: Colistin (Colistimethate) 300 MG in 0.9 % Sodium Chloride 50 ML IVPB ONE (03:00)
[2020-06-14 05:56] LABS: Hematocrit 41.8 % (37.5-50.1); Hemoglobin 12.4 g/dL (12.9-16.9); Mean Corpuscular HGB Conc 29.7 g/dL (31.6-35.5); Mean Corpuscular Hemoglobin 28.1 pg (28.0-33.3); Mean Corpuscular Volume 94.8 fL (83.0-100.0); Mean Platelet Volume 13.2 fL (9.4-12.4); Platelet Count 220 K/mcL (140-400); Red Blood Count 4.41 M/mcL (4.19-5.50); Red Cell Distribution Width 16.1 % (11.5-14.5)
[2020-06-14] MEDS ORDERED: 0.9 % Sodium Chloride 1,000 ML IVC ONE ×2 (08:19→13:05)
[2020-06-14] MEDS: Insulin LISPRO 300 UNITS/3 ML VIAL SUBQ SCH ×3 (08:39→15:53)
[2020-06-14] MEDS ORDERED: Acetaminophen IV 500 MG/50 ML BAG IVPB ONE (08:44)
[2020-06-14 08:46] LABS: Basophils % 0.3 %; Eosinophils # 0.1 K/mcL (0.0-0.6); Eosinophils % 0.6 %; Hematocrit 42.6 % (37.5-50.1); Hemoglobin 12.5 g/dL (12.9-16.9); Immature Granulocytes % 0.3 % (0-4); Lymphocytes # 3.7 K/mcL (0.6-4.6); Lymphocytes % 34.1 %; Mean Corpuscular HGB Conc 29.3 g/dL (31.6-35.5); Mean Corpuscular Hemoglobin 28.1 pg (28.0-33.3); Mean Corpuscular Volume 95.7 fL (83.0-100.0); Monocytes # 0.9 K/mcL (0.0-1.3); Neutrophils # 6.2 K/mcL (1.6-8.9); Platelet Count 257 K/mcL (140-400); Red Blood Count 4.45 M/mcL (4.19-5.50); Red Cell Distribution Width 16.1 % (11.5-14.5); Segmented Neutrophils % 56.7 %; White Blood Count 10.9 K/mcL (4.3-11.1)
[2020-06-14 08:55] LABS: BUN/Creatinine Ratio 52 (6-26); Blood Urea Nitrogen 64 mg/dL (8-23); Calcium 8.9 mg/dL (8.6-10.3); Carbon Dioxide 30 mEq/L (23-29); Chloride 115 mEq/L (98-107); Glucose 167 mg/dL (70-105); Osmolality,Calculated 334 (280-300); Potassium 4.2 mEq/L (3.5-5.1); Sodium 151 mEq/L (136-145); eGFR For African Americans > 60 (> 60); eGFR For Non-African Americans > 60 (> 60)
[2020-06-14] MEDS: Apixaban 5 MG TABLET GTUBE SCH ×2 (11:15→21:06)
[2020-06-14] MEDS ORDERED: Ringers Solution, Lactated 1,000 ML IVC ONE (13:27)
[2020-06-14] MEDS ORDERED: Albumin 25% 25gram/100mL 25 GM/100 ML IV.SOLN IVPB ONE (13:57)
[2020-06-14] MEDS ORDERED: Perflutren Lipid Microsphere 1.3 ML in 0.9 % Sodium Chloride 8.7 ML IVP PRN (13:59)
[2020-06-14] MEDS: SODIUM CHLORIDE 0.9% IVPB SCH (15:53)
[2020-06-14] MEDS: COLISTIN IVPB SCH (15:53)
[2020-06-14] MEDS ORDERED: Norepinephrine 4 MG/254 ML IV.SOLN IVC SCH (16:15)
[2020-06-14 16:29] LABS: INR 1.5; Prothrombin Time 16.7 Seconds (9.4-12.1)
[2020-06-14 16:32] LABS: BUN/Creatinine Ratio 52 (6-26); Blood Urea Nitrogen 55 mg/dL (8-23); Calcium 8.2 mg/dL (8.6-10.3); Carbon Dioxide 32 mEq/L (23-29); Chloride 115 mEq/L (98-107); Glucose 130 mg/dL (70-105); Osmolality,Calculated 327 (280-300); Potassium 3.8 mEq/L (3.5-5.1); Sodium 150 mEq/L (136-145); eGFR For African Americans > 60 (> 60); eGFR For Non-African Americans > 60 (> 60)
[2020-06-14] MEDS ORDERED: Naloxone 0.4 MG/ML INJ IVP PRN (16:34)
[2020-06-14] MEDS ORDERED: Insulin LISPRO 300 UNITS/3 ML VIAL SUBQ SCH (21:00)
[2020-06-14 21:57] LABS: BUN/Creatinine Ratio 51 (6-26); Blood Urea Nitrogen 44 mg/dL (8-23); Calcium 8.3 mg/dL (8.6-10.3); Carbon Dioxide 31 mEq/L (23-29); Chloride 113 mEq/L (98-107); Glucose 123 mg/dL (70-105); Osmolality,Calculated 319 (280-300); Potassium 3.7 mEq/L (3.5-5.1); Sodium 148 mEq/L (136-145); eGFR For African Americans > 60 (> 60); eGFR For Non-African Americans > 60 (> 60)
[2020-06-15] MEDS: COLISTIN IVPB SCH ×2 (04:06→15:27)
[2020-06-15] MEDS: SODIUM CHLORIDE 0.9% IVPB SCH ×2 (04:06→15:27)
[2020-06-15 04:07] LABS: Basophils % 0.3 %; Eosinophils # 0.2 K/mcL (0.0-0.6); Eosinophils % 2.7 %; Hematocrit 35.9 % (37.5-50.1); Hemoglobin 10.6 g/dL (12.9-16.9); Immature Granulocytes % 0.4 % (0-4); Lymphocytes # 1.9 K/mcL (0.6-4.6); Lymphocytes % 24.2 %; Mean Corpuscular HGB Conc 29.5 g/dL (31.6-35.5); Mean Corpuscular Hemoglobin 28.6 pg (28.0-33.3); Mean Platelet Volume 12.3 fL (9.4-12.4); Monocytes # 0.6 K/mcL (0.0-1.3); Monocytes % 7.3 %; Neutrophils # 5.1 K/mcL (1.6-8.9); Platelet Count 217 K/mcL (140-400); Red Cell Distribution Width 15.6 % (11.5-14.5); Segmented Neutrophils % 65.1 %; White Blood Count 7.8 K/mcL (4.3-11.1)
[2020-06-15 04:32] LABS: BUN/Creatinine Ratio 51 (6-26); Blood Urea Nitrogen 40 mg/dL (8-23); Calcium 8.2 mg/dL (8.6-10.3); Carbon Dioxide 31 mEq/L (23-29); Chloride 111 mEq/L (98-107); Glucose 127 mg/dL (70-105); Magnesium 2.1 mg/dL (1.6-2.6); Osmolality,Calculated 311 (280-300); Phosphorous 2.8 mg/dL (2.7-4.5); Potassium 3.7 mEq/L (3.5-5.1); Sodium 145 mEq/L (136-145); eGFR For African Americans > 60 (> 60); eGFR For Non-African Americans > 60 (> 60)
[2020-06-15] MEDS: Insulin LISPRO 300 UNITS/3 ML VIAL SUBQ SCH ×3 (07:15→16:11)
[2020-06-15] MEDS: Apixaban 5 MG TABLET GTUBE SCH ×2 (08:26→20:14)
[2020-06-15] MEDS ORDERED: levETIRAcetam 500 MG/5 ML UDC GTUBE SCH (11:30)
[2020-06-15] MEDS ORDERED: lamoTRIgine 100 MG TABLET GTUBE SCH (11:30)
[2020-06-15] MEDS ORDERED: MOM Conc 10 ML UD.LIQ GTUBE PRN (12:42)
[2020-06-15] MEDS ORDERED: Naloxone 0.4 MG/ML INJ IVP PRN (12:42)
[2020-06-15] MEDS ORDERED: *HR* Dextrose 50 % in Water (Vial) 50 ML VIAL IVP PRN (12:42)
[2020-06-15] MEDS ORDERED: Ondansetron 4 MG/2 ML VIAL IVP PRN (12:42)
[2020-06-15] MEDS ORDERED: Dextrose Gel 15 GM/37.5 ML TUBE PO PRN ×2 (12:42)
[2020-06-15] MEDS ORDERED: D5% in Water 1,000 ML IVC PRN (12:42)
[2020-06-15] MEDS: levETIRAcetam 500 MG/5 ML UDC GTUBE SCH (20:13)
[2020-06-15] MEDS: lamoTRIgine 100 MG TABLET GTUBE SCH (20:14)
[2020-06-15] MEDS: Docusate Oral Soln 100 MG/10 ML UDC GTUBE SCH (20:14)
[2020-06-15] MEDS ORDERED: Insulin LISPRO 300 UNITS/3 ML VIAL SUBQ SCH (21:00)
[2020-06-15] MEDS ORDERED: Haloperidol Lactate 5 MG/ML VIAL IM ONE (22:52)
[2020-06-16] MEDS: SODIUM CHLORIDE 0.9% IVPB SCH (04:10)
[2020-06-16] MEDS: COLISTIN IVPB SCH (04:10)
[2020-06-16 07:12] LABS: Basophils % 0.3 %; Eosinophils # 0.2 K/mcL (0.0-0.6); Eosinophils % 3.5 %; Hematocrit 33.1 % (37.5-50.1); Immature Granulocytes % 0.3 % (0-4); Lymphocytes # 1.8 K/mcL (0.6-4.6); Lymphocytes % 26.7 %; Mean Corpuscular HGB Conc 29.3 g/dL (31.6-35.5); Mean Corpuscular Hemoglobin 27.4 pg (28.0-33.3); Mean Corpuscular Volume 93.5 fL (83.0-100.0); Mean Platelet Volume 12.8 fL (9.4-12.4); Monocytes # 0.6 K/mcL (0.0-1.3); Monocytes % 9.2 %; Neutrophils # 4.1 K/mcL (1.6-8.9); Platelet Count 192 K/mcL (140-400); Red Blood Count 3.54 M/mcL (4.19-5.50); Red Cell Distribution Width 15.3 % (11.5-14.5); White Blood Count 6.9 K/mcL (4.3-11.1)
[2020-06-16 07:14] LABS: Hemoglobin 9.7 g/dL (12.9-16.9)
[2020-06-16 07:29] LABS: BUN/Creatinine Ratio 55 (6-26); Blood Urea Nitrogen 39 mg/dL (8-23); Calcium 8.3 mg/dL (8.6-10.3); Carbon Dioxide 29 mEq/L (23-29); Chloride 112 mEq/L (98-107); Glucose 104 mg/dL (70-105); Magnesium 2.3 mg/dL (1.6-2.6); Osmolality,Calculated 308 (280-300); Phosphorous 2.6 mg/dL (2.7-4.5); Potassium 3.9 mEq/L (3.5-5.1); Sodium 144 mEq/L (136-145); eGFR For African Americans > 60 (> 60); eGFR For Non-African Americans > 60 (> 60)
[2020-06-16] MEDS: Insulin LISPRO 300 UNITS/3 ML VIAL SUBQ SCH ×3 (08:14→17:08)
[2020-06-16] MEDS: levETIRAcetam 500 MG/5 ML UDC GTUBE SCH ×2 (08:54→21:45)
[2020-06-16] MEDS: Cholecalciferol (D-3) 1,000 UNIT (25MCG) TABLET PO SCH (08:54)
[2020-06-16] MEDS: Docusate Oral Soln 100 MG/10 ML UDC GTUBE SCH ×2 (08:54→21:45)
[2020-06-16] MEDS: Apixaban 5 MG TABLET GTUBE SCH ×2 (08:55→21:46)
[2020-06-16] MEDS: lamoTRIgine 100 MG TABLET GTUBE SCH ×2 (08:55→21:46)
[2020-06-16] MEDS: Ketoconazole 2% CRM 15 GM TUBE TP SCH (08:55)
[2020-06-16] MEDS: Multivitamin Liquid 15 ML UDC GTUBE SCH (08:55)
[2020-06-16] MEDS ORDERED: [UNRECOGNIZED DRUG - OTHER] TP SCH (09:00)
[2020-06-16] MEDS: Colistin (Colistimethate) 180 MG in 0.9 % Sodium Chloride 50 ML IVPB SCH (16:55)
[2020-06-16] MEDS: Acetaminophen 325 MG TABLET PO PRN (21:45)
[2020-06-17] MEDS: Insulin LISPRO 300 UNITS/3 ML VIAL SUBQ SCH ×4 (00:58→17:53)
[2020-06-17] MEDS: Colistin (Colistimethate) 180 MG in 0.9 % Sodium Chloride 50 ML IVPB SCH ×2 (04:29→15:33)
[2020-06-17 04:34] LABS: Basophils % 0.3 %; Eosinophils # 0.2 K/mcL (0.0-0.6); Eosinophils % 3.9 %; Hematocrit 32.1 % (37.5-50.1); Hemoglobin 9.4 g/dL (12.9-16.9); Immature Granulocytes % 0.3 % (0-4); Lymphocytes # 2.4 K/mcL (0.6-4.6); Lymphocytes % 38.1 %; Mean Corpuscular HGB Conc 29.3 g/dL (31.6-35.5); Mean Corpuscular Hemoglobin 27.2 pg (28.0-33.3); Mean Platelet Volume 12.9 fL (9.4-12.4); Monocytes # 0.6 K/mcL (0.0-1.3); Neutrophils # 2.9 K/mcL (1.6-8.9); Platelet Count 160 K/mcL (140-400); Red Blood Count 3.45 M/mcL (4.19-5.50); Red Cell Distribution Width 15.5 % (11.5-14.5); Segmented Neutrophils % 47.4 %; White Blood Count 6.2 K/mcL (4.3-11.1)
[2020-06-17 04:50] LABS: BUN/Creatinine Ratio 51 (6-26); Blood Urea Nitrogen 34 mg/dL (8-23); Calcium 8.3 mg/dL (8.6-10.3); Carbon Dioxide 29 mEq/L (23-29); Chloride 112 mEq/L (98-107); Glucose 108 mg/dL (70-105); Magnesium 2.3 mg/dL (1.6-2.6); Osmolality,Calculated 308 (280-300); Phosphorous 2.6 mg/dL (2.7-4.5); Sodium 145 mEq/L (136-145); eGFR For African Americans > 60 (> 60); eGFR For Non-African Americans > 60 (> 60)
[2020-06-17] MEDS: Apixaban 5 MG TABLET GTUBE SCH ×2 (07:27→21:08)
[2020-06-17] MEDS: Docusate Oral Soln 100 MG/10 ML UDC GTUBE SCH ×2 (07:27→21:08)
[2020-06-17] MEDS: lamoTRIgine 100 MG TABLET GTUBE SCH ×2 (07:27→21:08)
[2020-06-17] MEDS: levETIRAcetam 500 MG/5 ML UDC GTUBE SCH ×2 (07:27→21:09)
[2020-06-17] MEDS: Cholecalciferol (D-3) 1,000 UNIT (25MCG) TABLET PO SCH (07:27)
[2020-06-17] MEDS: Multivitamin Liquid 15 ML UDC GTUBE SCH (07:28)
[2020-06-17] MEDS ORDERED: Calcium Chloride 1,000 MG in 0.9 % Sodium Chloride 100 ML IVPB ONE (07:29)
[2020-06-17] MEDS: Ketoconazole 2% CRM 15 GM TUBE TP SCH (07:31)
[2020-06-17 17:24] LABS: Adenovirus Not Detected (Not Detect); Bordetella Pertussis Not Detected (Not Detect); Chlamydophila pneumoniae Not Detected (Not Detect); Coronavirus 229E Not Detected (Not Detect); Coronavirus HKU1 Not Detected (Not Detect); Coronavirus NL63 Not Detected (Not Detect); Coronavirus OC43 Not Detected (Not Detect); Human Metapneumovirus Not Detected (Not Detect); Human Rhinovirus/Enterovirus Not Detected (Not Detect); Influenza A Subtype 2009 H1 Not Detected (Not Detect); Influenza B Not Detected (Not Detect); Mycoplasma pneumoniae Not Detected (Not Detect); Parainfluenza Virus 1 Not Detected (Not Detect); Parainfluenza Virus 2 Not Detected (Not Detect); Parainfluenza Virus 3 Not Detected (Not Detect); Parainfluenza Virus 4 Not Detected (Not Detect); Respiratory Syncytial Virus Not Detected (Not Detect); SARS-CoV-2 Not Detected (Not Detect)
[2020-06-17] MEDS: Acetaminophen 325 MG TABLET PO PRN (21:10)
[2020-06-18] MEDS: Insulin LISPRO 300 UNITS/3 ML VIAL SUBQ SCH ×4 (01:14→17:54)
[2020-06-18 03:42] LABS: Hematocrit 32.9 % (37.5-50.1); Mean Corpuscular HGB Conc 30.4 g/dL (31.6-35.5); Mean Corpuscular Hemoglobin 28.2 pg (28.0-33.3); Mean Corpuscular Volume 92.7 fL (83.0-100.0); Mean Platelet Volume 13.4 fL (9.4-12.4); Platelet Count 196 K/mcL (140-400); Red Blood Count 3.55 M/mcL (4.19-5.50); Red Cell Distribution Width 15.6 % (11.5-14.5); White Blood Count 5.7 K/mcL (4.3-11.1)
[2020-06-18] MEDS ORDERED: cefTAZidime 2,000 MG in Water for inj. (sterile) 20 ML IVP SCH ×2 (04:00→12:00)
[2020-06-18 04:02] LABS: BUN/Creatinine Ratio 41 (6-26); Blood Urea Nitrogen 26 mg/dL (8-23); Carbon Dioxide 31 mEq/L (23-29); Chloride 106 mEq/L (98-107); Glucose 129 mg/dL (70-105); Osmolality,Calculated 298 (280-300); Sodium 141 mEq/L (136-145); eGFR For African Americans > 60 (> 60); eGFR For Non-African Americans > 60 (> 60)
[2020-06-18] MEDS: Acetaminophen 325 MG TABLET PO PRN (05:25)
[2020-06-18] MEDS: lamoTRIgine 100 MG TABLET GTUBE SCH (09:32)
[2020-06-18] MEDS: Cholecalciferol (D-3) 1,000 UNIT (25MCG) TABLET PO SCH (09:32)
[2020-06-18] MEDS: Apixaban 5 MG TABLET GTUBE SCH (09:32)
[2020-06-18] MEDS: Docusate Oral Soln 100 MG/10 ML UDC GTUBE SCH (09:32)
[2020-06-18] MEDS: levETIRAcetam 500 MG/5 ML UDC GTUBE SCH (09:32)
[2020-06-18] MEDS: Ketoconazole 2% CRM 15 GM TUBE TP SCH (09:32)
[2020-06-18] MEDS: Multivitamin Liquid 15 ML UDC GTUBE SCH (09:32)
[2020-06-18] MEDS ORDERED: cefTAZidime 2,000 MG in 0.9 % Sodium Chloride Mini Bag 100 ML IVPB SCH (12:30)
[2020-06-18 15:20] VITALS: BP 115/79
== END 2020-06-18 20:05 | DRG 871 ==
LOC: 3ANU → SUATTDRO 23:29 → ICNU 06-14 14:54 → SUATTDRO 06-14 16:47 → 2ANU 06-15 17:46
PROVIDERS: ADMIT Family Medicine; ATTEND Internal Medicine

== ENCOUNTER 2020-08-20 21:44 | Inpatient (IN) ==
[2020-08-21 00:57] LABS: ABG Base Excess 4 mEq/L (-2 to 3); ABG HCO3 29 mEq/L (21-27); ABG Oxygen Saturation 96 % (95-98); ABG PCO2 45 mmHg (35-45); ABG PH 7.42 pH Units (7.32-7.45); ABG PO2 84 mmHg (85-104); ABG TCO2 31 mEq/L (20-26); Blood Gas VT 450 cc
[2020-08-21] MEDS ORDERED: Artificial Tears SOLN 15 ML BOTTLE BOTH EYES PRN (01:57)
[2020-08-21] MEDS ORDERED: Naloxone 0.4 MG/ML INJ IVP PRN (02:00)
[2020-08-21] MEDS: Chlorhexidine Rinse 15 ML MOUTHWASH MM SCH ×3 (02:46→20:58)
[2020-08-21] MEDS: Norepinephrine 4 MG/254 ML IV.SOLN IVC SCH ×3 (02:47→11:10)
[2020-08-21] MEDS: Dexmedetomidine HCl 400 MCG/100 ML MLS IVC SCH ×4 (02:48→21:27)
[2020-08-21] MEDS ORDERED: D5% in Water 1,000 ML IVC PRN (03:02)
[2020-08-21] MEDS ORDERED: *HR* Dextrose 50 % in Water (Vial) 50 ML VIAL IVP PRN (03:02)
[2020-08-21] MEDS ORDERED: Dextrose Gel 15 GM/37.5 ML TUBE PO PRN ×2 (03:02)
[2020-08-21 03:08] LABS: Bacteria,Urine Few per hpf (None-Few); Bilirubin,Urine Negative (Negative); Blood,Urine Small (Negative); Clarity,Urine Clear (Clear); Color,Urine Yellow (Yellow); Glucose,Urine (UA) 150 mg/dL (Normal); Hyaline Casts,Urine Few per lpf (None Seen); Ketones,Urine Trace mg/dL (Negative); Leukocyte Esterase,Urine Large (Negative); Mucus,Urine Few per lpf (None-Few); Nitrite,Urine Negative (Negative); PH,Urine 6.5 pH Units (5.0-8.0); Protein,Urine 50 mg/dL (Neg-Trace); RBC,Urine 0-3 per hpf (0-3); Specific Gravity,Urine 1.019 (1.010-1.025); Squamous Epithelial Cell,Urine Few per hpf (None-Few); Urobilinogen,Urine Normal (Normal); WBC,Urine 30-50 per hpf (0-3)
[2020-08-21] MEDS ORDERED: 0.9 % Sodium Chloride 1,000 ML IVC SCH (03:15)
[2020-08-21 03:18] LABS: Troponin I 0.2 ng/mL (< 0.04)
[2020-08-21] MEDS ORDERED: *HR* Heparin 5,000 UNIT/ML VIAL IVP PRN (03:38)
[2020-08-21] MEDS ORDERED: *HR* Heparin 5,000 UNIT/ML VIAL IVP ONE (03:38)
[2020-08-21] MEDS ORDERED: Vancomycin 1 EACH in 0.9 % Sodium Chloride 250 ML IVPB PRN (04:00)
[2020-08-21] MEDS: Midazolam HCl 50 MG/100 ML IV.SOLN IVC SCH (04:04)
[2020-08-21] MEDS: Artificial Tears SOLN 15 ML BOTTLE BOTH EYES SCH ×5 (04:04→20:59)
[2020-08-21] MEDS: Insulin LISPRO 300 UNITS/3 ML VIAL SUBQ SCH ×5 (04:07→20:59)
[2020-08-21] MEDS ORDERED: 0.9 % Sodium Chloride 2,000 ML ONE (04:15)
[2020-08-21 04:38] LABS: ABG Base Excess 5 mEq/L (-2 to 3); ABG HCO3 30 mEq/L (21-27); ABG Oxygen Saturation 96 % (95-98); ABG PCO2 44 mmHg (35-45); ABG PH 7.43 pH Units (7.32-7.45); ABG PO2 78 mmHg (85-104); ABG TCO2 31 mEq/L (20-26); Blood Gas VT 450 cc
[2020-08-21] MEDS: Heparin 25,000UNIT/250ML 1/2NS 25,000 UNIT/250 ML IV.SOLN IVC SCH (04:44)
[2020-08-21 04:50] LABS: Basophils % 0.1 %; Hematocrit 34.9 % (37.5-50.1); Hemoglobin 10.9 g/dL (12.9-16.9); Immature Granulocytes % 0.5 % (0-4); Lymphocytes # 0.8 K/mcL (0.6-4.6); Lymphocytes % 3.4 %; Mean Corpuscular HGB Conc 31.2 g/dL (31.6-35.5); Mean Corpuscular Hemoglobin 27.1 pg (28.0-33.3); Mean Corpuscular Volume 86.8 fL (83.0-100.0); Mean Platelet Volume 12.6 fL (9.4-12.4); Monocytes # 0.9 K/mcL (0.0-1.3); Monocytes % 3.8 %; Platelet Count 336 K/mcL (140-400); Red Blood Count 4.02 M/mcL (4.19-5.50); Red Cell Distribution Width 16.2 % (11.5-14.5); Segmented Neutrophils % 92.2 %; White Blood Count 22.8 K/mcL (4.3-11.1)
[2020-08-21] MEDS ORDERED: Perflutren Lipid Microsphere 1.3 ML in 0.9 % Sodium Chloride 8.7 ML IVP PRN ×3 (04:58→07:33)
[2020-08-21 05:02] LABS: Heparin anti-factor XA UFH 0.36 IU/mL (0.30-0.70)
[2020-08-21 05:03] LABS: INR 1.2; Prothrombin Time 14.3 Seconds (9.4-12.1)
[2020-08-21 05:09] LABS: Calcium 9.5 mg/dL (8.6-10.3); Magnesium 1.9 mg/dL (1.6-2.6); Phosphorous 2.2 mg/dL (2.7-4.5); Potassium 3.3 mEq/L (3.5-5.1)
[2020-08-21] MEDS ORDERED: Calcium Gluconate 1gm/50mL 1 GM/50 ML BAG IVPB PRN (05:13)
[2020-08-21] MEDS ORDERED: Potassium Phosphate 44 MEQ in 0.9 % Sodium Chloride 250 ML IVPB ONE (05:33)
[2020-08-21] MEDS: Potassium Chloride 40 MEQ/200 ML BAG IVPB PRN ×2 (05:52→06:44)
[2020-08-21] MEDS ORDERED: cefTAZidime 2,000 MG in Water for inj. (sterile) 20 ML IVP SCH ×2 (06:00→08:00)
[2020-08-21] MEDS: Pantoprazole 40 MG VIAL IVP SCH (08:05)
[2020-08-21] MEDS: Azithromycin 250 MG TABLET PO SCH (08:09)
[2020-08-21] MEDS: FentaNYL (PF) 1,000 MCG/100 ML IV.SOLN IVC SCH ×2 (09:06→16:44)
[2020-08-21] MEDS ORDERED: levETIRAcetam 500 MG/5 ML UDC GTUBE ONE (09:45)
[2020-08-21] MEDS: lamoTRIgine 100 MG TABLET GTUBE SCH ×2 (09:59→20:58)
[2020-08-21] MEDS: Phenylephrine 10 MG in 0.9 % Sodium Chloride 250 ML IVC SCH ×3 (10:55→20:12)
[2020-08-21 11:33] LABS: Potassium,Urine 40.1 mEq/L; Protein/Creatinine Ratio,Urine 0.98 mg/mg (0.00-0.20); Sodium, Urine 37.5 mEq/L
[2020-08-21] MEDS: Meropenem 1,000 MG in Water for inj. (sterile) 20 ML IVP SCH (13:09)
[2020-08-21 14:34] LABS: Calcium 9.2 mg/dL (8.6-10.3); Potassium 3.7 mEq/L (3.5-5.1); Troponin I 0.15 ng/mL (< 0.04)
[2020-08-21] MEDS: levETIRAcetam 500 MG/5 ML UDC GTUBE SCH (20:58)
[2020-08-21] MEDS ORDERED: Acetaminophen IV 1,000 MG/100 ML BAG IVPB ONE (21:31)
[2020-08-21] MEDS: Vancomycin 1,250 MG/262.5 ML IV.SOLN IVPB SCH (22:05)
[2020-08-21] MEDS: *HR* Heparin 5,000 UNIT/ML VIAL IVP PRN (23:30)
[2020-08-22] MEDS: Phenylephrine 10 MG in 0.9 % Sodium Chloride 250 ML IVC SCH ×6 (00:23→22:06)
[2020-08-22] MEDS: Artificial Tears SOLN 15 ML BOTTLE BOTH EYES SCH ×6 (00:30→20:04)
[2020-08-22] MEDS: Insulin LISPRO 300 UNITS/3 ML VIAL SUBQ SCH ×6 (00:30→20:05)
[2020-08-22] MEDS: Dexmedetomidine HCl 400 MCG/100 ML MLS IVC SCH ×4 (02:30→21:48)
[2020-08-22] MEDS: FentaNYL (PF) 1,000 MCG/100 ML IV.SOLN IVC SCH ×3 (03:15→15:26)
[2020-08-22] MEDS: Meropenem 1,000 MG in Water for inj. (sterile) 20 ML IVP SCH ×2 (03:25→13:04)
[2020-08-22 04:08] LABS: Alanine Aminotransferase 26 Units/L (7-52); Albumin 2.6 g/dL (3.5-5.7); Albumin/Globulin Ratio 0.8 (1.1-2.2); Alkaline Phosphatase 41 Units/L (34-104); Aspartate Amino Transferase 27 Units/L (13-39); Bilirubin,Direct 0.3 mg/dL (0.0-0.2); Bilirubin,Indirect 0.3 mg/dL (0.0-1.0); Bilirubin,Total 0.6 mg/dL (0.3-1.0); Globulin 3.1 g/dL (2.4-3.5); Magnesium 1.9 mg/dL (1.6-2.6); Phosphorous 1.7 mg/dL (2.7-4.5); Total Protein 5.7 g/dL (6.4-8.9)
[2020-08-22 04:36] LABS: ABG Base Excess 2 mEq/L (-2 to 3); ABG HCO3 26 mEq/L (21-27); ABG Oxygen Saturation 96 % (95-98); ABG PCO2 37 mmHg (35-45); ABG PH 7.45 pH Units (7.32-7.45); ABG PO2 75 mmHg (85-104); ABG TCO2 27 mEq/L (20-26); Blood Gas VT 450 cc
[2020-08-22] MEDS: Heparin 25,000UNIT/250ML 1/2NS 25,000 UNIT/250 ML IV.SOLN IVC SCH (04:45)
[2020-08-22] MEDS: Midazolam HCl 50 MG/100 ML IV.SOLN IVC SCH (06:04)
[2020-08-22 06:07] LABS: INR 1.3; Prothrombin Time 14.9 Seconds (9.4-12.1)
[2020-08-22 06:09] LABS: Activated Partial Thrombo Time 51.7 Seconds (26.0-36.0)
[2020-08-22 06:14] LABS: Hematocrit 34.8 % (37.5-50.1); Hemoglobin 10.8 g/dL (12.9-16.9); Immature Platelets 8.9 % (1.1-6.1); Mean Corpuscular Hemoglobin 26.6 pg (28.0-33.3); Mean Corpuscular Volume 85.7 fL (83.0-100.0); Mean Platelet Volume 13.6 fL (9.4-12.4); Red Blood Count 4.06 M/mcL (4.19-5.50); Red Cell Distribution Width 16.8 % (11.5-14.5); White Blood Count 19.5 K/mcL (4.3-11.1)
[2020-08-22 06:16] LABS: BUN/Creatinine Ratio 42 (6-26); Blood Urea Nitrogen 61 mg/dL (8-23); Calcium 8.9 mg/dL (8.6-10.3); Carbon Dioxide 28 mEq/L (23-29); Chloride 115 mEq/L (98-107); Glucose 146 mg/dL (70-105); Osmolality,Calculated 328 (280-300); Potassium 3.6 mEq/L (3.5-5.1); Sodium 149 mEq/L (136-145); eGFR For African Americans > 60 (> 60); eGFR For Non-African Americans 50 (> 60)
[2020-08-22] MEDS: *HR* Heparin 5,000 UNIT/ML VIAL IVP PRN (06:19)
[2020-08-22] MEDS: Potassium Chloride 40 MEQ/200 ML BAG IVPB PRN (06:35)
[2020-08-22] MEDS: Potassium Phosphate 44 MEQ in 0.9 % Sodium Chloride 250 ML IVPB ONE ×2 (07:08→08:30)
[2020-08-22] MEDS: lamoTRIgine 100 MG TABLET GTUBE SCH ×2 (08:03→20:04)
[2020-08-22] MEDS: Chlorhexidine Rinse 15 ML MOUTHWASH MM SCH ×2 (08:03→20:04)
[2020-08-22] MEDS: Pantoprazole 40 MG VIAL IVP SCH (08:03)
[2020-08-22] MEDS: Azithromycin 250 MG TABLET PO SCH (08:03)
[2020-08-22] MEDS: levETIRAcetam 500 MG/5 ML UDC GTUBE SCH ×2 (08:04→20:04)
[2020-08-22 15:04] LABS: BUN/Creatinine Ratio 37 (6-26); Blood Urea Nitrogen 46 mg/dL (8-23); Calcium 8.2 mg/dL (8.6-10.3); Carbon Dioxide 25 mEq/L (23-29); Chloride 117 mEq/L (98-107); Glucose 147 mg/dL (70-105); Osmolality,Calculated 321 (280-300); Phosphorous 3.9 mg/dL (2.7-4.5); Potassium 4.3 mEq/L (3.5-5.1); Sodium 148 mEq/L (136-145); eGFR For African Americans > 60 (> 60); eGFR For Non-African Americans > 60 (> 60)
[2020-08-22] MEDS: FentaNYL (PF) 2,500 MCG/50 ML IV.SOLN IVC SCH (21:16)
[2020-08-22] MEDS: Vancomycin 1,250 MG/262.5 ML IV.SOLN IVPB SCH (23:12)
[2020-08-23] MEDS: Artificial Tears SOLN 15 ML BOTTLE BOTH EYES SCH ×6 (00:40→21:00)
[2020-08-23] MEDS: Insulin LISPRO 300 UNITS/3 ML VIAL SUBQ SCH ×6 (00:40→21:00)
[2020-08-23] MEDS: *HR* Heparin 5,000 UNIT/ML VIAL IVP PRN (00:46)
[2020-08-23] MEDS: Phenylephrine 10 MG in 0.9 % Sodium Chloride 250 ML IVC SCH (01:20)
[2020-08-23] MEDS: Heparin 25,000UNIT/250ML 1/2NS 25,000 UNIT/250 ML IV.SOLN IVC SCH ×2 (01:27→11:45)
[2020-08-23] MEDS: Midazolam HCl 50 MG/100 ML IV.SOLN IVC SCH (02:43)
[2020-08-23] MEDS: Meropenem 1,000 MG in Water for inj. (sterile) 20 ML IVP SCH (02:43)
[2020-08-23] MEDS: Dexmedetomidine HCl 400 MCG/100 ML MLS IVC SCH ×3 (03:35→18:18)
[2020-08-23 04:28] LABS: ABG Base Excess -1 mEq/L (-2 to 3); ABG HCO3 24 mEq/L (21-27); ABG Oxygen Saturation 96 % (95-98); ABG PCO2 43 mmHg (35-45); ABG PH 7.36 pH Units (7.32-7.45); ABG PO2 83 mmHg (85-104); ABG TCO2 25 mEq/L (20-26); Blood Gas VT 450 cc
[2020-08-23] MEDS: Phenylephrine 50 MG in 0.9 % Sodium Chloride 250 ML IVC SCH (04:42)
[2020-08-23 05:13] LABS: Basophils % 0.2 %; Eosinophils # 0.3 K/mcL (0.0-0.6); Eosinophils % 1.8 %; Hematocrit 31.4 % (37.5-50.1); Hemoglobin 9.5 g/dL (12.9-16.9); Immature Granulocytes % 0.5 % (0-4); Lymphocytes # 1.5 K/mcL (0.6-4.6); Mean Corpuscular HGB Conc 30.3 g/dL (31.6-35.5); Mean Corpuscular Hemoglobin 26.8 pg (28.0-33.3); Mean Corpuscular Volume 88.7 fL (83.0-100.0); Mean Platelet Volume 12.6 fL (9.4-12.4); Monocytes # 0.8 K/mcL (0.0-1.3); Monocytes % 4.6 %; Neutrophils # 14.4 K/mcL (1.6-8.9); Platelet Count 278 K/mcL (140-400); Red Blood Count 3.54 M/mcL (4.19-5.50); Segmented Neutrophils % 83.9 %; White Blood Count 17.1 K/mcL (4.3-11.1)
[2020-08-23 05:20] LABS: VBG Ionized Calcium 1.22 mmol/L (1.15-1.35)
[2020-08-23 05:33] LABS: BUN/Creatinine Ratio 38 (6-26); Blood Urea Nitrogen 35 mg/dL (8-23); Calcium 7.9 mg/dL (8.6-10.3); Carbon Dioxide 25 mEq/L (23-29); Chloride 114 mEq/L (98-107); Glucose 185 mg/dL (70-105); Magnesium 1.5 mg/dL (1.6-2.6); Osmolality,Calculated 307 (280-300); Phosphorous 2.4 mg/dL (2.7-4.5); Sodium 142 mEq/L (136-145); eGFR For African Americans > 60 (> 60); eGFR For Non-African Americans > 60 (> 60)
[2020-08-23 07:29] LABS: Prothrombin Time 12.1 Seconds (9.4-12.1)
[2020-08-23 07:32] LABS: Activated Partial Thrombo Time 55.1 Seconds (26.0-36.0)
[2020-08-23] MEDS: levETIRAcetam 500 MG/5 ML UDC GTUBE SCH ×2 (08:01→21:00)
[2020-08-23] MEDS: Azithromycin 250 MG TABLET PO SCH (08:01)
[2020-08-23] MEDS: lamoTRIgine 100 MG TABLET GTUBE SCH ×2 (08:01→21:00)
[2020-08-23] MEDS: Pantoprazole 40 MG VIAL IVP SCH (08:01)
[2020-08-23] MEDS: Chlorhexidine Rinse 15 ML MOUTHWASH MM SCH ×2 (08:02→21:00)
[2020-08-23] MEDS: FentaNYL (PF) 2,500 MCG/50 ML IV.SOLN IVC SCH (09:08)
[2020-08-23] MEDS ORDERED: Meropenem 1,000 MG in Water for inj. (sterile) 20 ML IVP SCH (12:00)
[2020-08-23] MEDS: cefTAZidime 1,000 MG in Water for inj. (sterile) 10 ML IVP SCH (15:17)
[2020-08-23 17:58] LABS: BUN/Creatinine Ratio 32 (6-26); Blood Urea Nitrogen 25 mg/dL (8-23); Calcium 7.9 mg/dL (8.6-10.3); Carbon Dioxide 23 mEq/L (23-29); Chloride 113 mEq/L (98-107); Glucose 166 mg/dL (70-105); Magnesium 1.6 mg/dL (1.6-2.6); Osmolality,Calculated 302 (280-300); Phosphorous 2.1 mg/dL (2.7-4.5); Potassium 3.8 mEq/L (3.5-5.1); Sodium 142 mEq/L (136-145); eGFR For African Americans > 60 (> 60); eGFR For Non-African Americans > 60 (> 60)
[2020-08-23] MEDS: Potassium Chloride 40 MEQ/200 ML BAG IVPB PRN (18:10)
[2020-08-24] MEDS: Artificial Tears SOLN 15 ML BOTTLE BOTH EYES SCH ×6 (00:09→20:04)
[2020-08-24] MEDS: Insulin LISPRO 300 UNITS/3 ML VIAL SUBQ SCH ×6 (00:09→20:04)
[2020-08-24] MEDS: cefTAZidime 1,000 MG in Water for inj. (sterile) 10 ML IVP SCH ×2 (00:10→08:41)
[2020-08-24] MEDS: Norepinephrine 4 MG/254 ML IV.SOLN IVC SCH (01:13)
[2020-08-24] MEDS: Midazolam HCl 50 MG/100 ML IV.SOLN IVC SCH (01:14)
[2020-08-24] MEDS: Phenylephrine 50 MG in 0.9 % Sodium Chloride 250 ML IVC SCH ×2 (01:30→21:10)
[2020-08-24] MEDS: Dexmedetomidine HCl 400 MCG/100 ML MLS IVC SCH ×4 (01:30→23:35)
[2020-08-24] MEDS: Heparin 25,000UNIT/250ML 1/2NS 25,000 UNIT/250 ML IV.SOLN IVC SCH ×2 (02:34→14:54)
[2020-08-24 04:24] LABS: VBG Ionized Calcium 1.15 mmol/L (1.15-1.35)
[2020-08-24 04:32] LABS: ABG Base Excess -2 mEq/L (-2 to 3); ABG HCO3 23 mEq/L (21-27); ABG Oxygen Saturation 96 % (95-98); ABG PCO2 40 mmHg (35-45); ABG PH 7.38 pH Units (7.32-7.45); ABG PO2 83 mmHg (85-104); ABG TCO2 25 mEq/L (20-26); Blood Gas Modality ASSIST CONTROL; Blood Gas VT 450 cc
[2020-08-24 04:44] LABS: Prothrombin Time 11.1 Seconds (9.4-12.1)
[2020-08-24 04:56] LABS: Magnesium 1.8 mg/dL (1.6-2.6); Phosphorous 2.4 mg/dL (2.7-4.5)
[2020-08-24 06:03] LABS: Alanine Aminotransferase 21 Units/L (7-52); Albumin 2.4 g/dL (3.5-5.7); Albumin/Globulin Ratio 0.8 (1.1-2.2); Alkaline Phosphatase 47 Units/L (34-104); Aspartate Amino Transferase 26 Units/L (13-39); BUN/Creatinine Ratio 30 (6-26); Bilirubin,Total 0.4 mg/dL (0.3-1.0); Blood Urea Nitrogen 21 mg/dL (8-23); Carbon Dioxide 24 mEq/L (23-29); Chloride 113 mEq/L (98-107); Globulin 3.2 g/dL (2.4-3.5); Glucose 166 mg/dL (70-105); Osmolality,Calculated 301 (280-300); Potassium 4.4 mEq/L (3.5-5.1); Sodium 142 mEq/L (136-145); Total Protein 5.6 g/dL (6.4-8.9); eGFR For African Americans > 60 (> 60); eGFR For Non-African Americans > 60 (> 60)
[2020-08-24 06:40] LABS: Basophils % 0.2 %; Eosinophils # 0.3 K/mcL (0.0-0.6); Eosinophils % 2.8 %; Hematocrit 30.6 % (37.5-50.1); Hemoglobin 9.2 g/dL (12.9-16.9); Immature Granulocytes % 0.5 % (0-4); Lymphocytes # 1.3 K/mcL (0.6-4.6); Mean Corpuscular HGB Conc 30.1 g/dL (31.6-35.5); Mean Corpuscular Volume 89.7 fL (83.0-100.0); Mean Platelet Volume 12.8 fL (9.4-12.4); Monocytes # 0.7 K/mcL (0.0-1.3); Monocytes % 6.1 %; Neutrophils # 9.5 K/mcL (1.6-8.9); Platelet Count 257 K/mcL (140-400); Red Blood Count 3.41 M/mcL (4.19-5.50); Segmented Neutrophils % 79.4 %
[2020-08-24] MEDS: Pantoprazole 40 MG VIAL IVP SCH (08:40)
[2020-08-24] MEDS: levETIRAcetam 500 MG/5 ML UDC GTUBE SCH ×2 (08:43→20:05)
[2020-08-24] MEDS: Chlorhexidine Rinse 15 ML MOUTHWASH MM SCH ×2 (08:43→20:05)
[2020-08-24] MEDS: Azithromycin 250 MG TABLET PO SCH (08:44)
[2020-08-24] MEDS: lamoTRIgine 100 MG TABLET GTUBE SCH ×2 (08:44→20:06)
[2020-08-24] MEDS: FentaNYL (PF) 2,500 MCG/50 ML IV.SOLN IVC SCH (08:46)
[2020-08-24] MEDS: valACYclovir 500 MG TABLET GTUBE SCH ×3 (11:03→20:06)
[2020-08-24] MEDS: metroNIDAZOLE 500 MG TABLET GTUBE SCH ×2 (14:52→20:05)
[2020-08-24] MEDS: Cefepime HCl 2,000 MG in 0.9 % Sodium Chloride Mini Bag 100 ML IVPB SCH (17:15)
[2020-08-24] MEDS ORDERED: 0.9 % Sodium Chloride 250 ML ONE (20:49)
[2020-08-25] MEDS: Insulin LISPRO 300 UNITS/3 ML VIAL SUBQ SCH ×7 (00:09→23:58)
[2020-08-25] MEDS: Artificial Tears SOLN 15 ML BOTTLE BOTH EYES SCH ×7 (00:10→23:58)
[2020-08-25] MEDS: FentaNYL (PF) 2,500 MCG/50 ML IV.SOLN IVC SCH ×2 (00:27→15:45)
[2020-08-25] MEDS: Heparin 25,000UNIT/250ML 1/2NS 25,000 UNIT/250 ML IV.SOLN IVC SCH ×2 (04:05→17:40)
[2020-08-25 04:35] LABS: Basophils % 0.2 %; Eosinophils # 0.3 K/mcL (0.0-0.6); Eosinophils % 3.4 %; Hematocrit 27.1 % (37.5-50.1); Hemoglobin 8.5 g/dL (12.9-16.9); Lymphocytes # 1.5 K/mcL (0.6-4.6); Lymphocytes % 17.9 %; Mean Corpuscular HGB Conc 31.4 g/dL (31.6-35.5); Mean Corpuscular Hemoglobin 26.8 pg (28.0-33.3); Mean Corpuscular Volume 85.5 fL (83.0-100.0); Mean Platelet Volume 11.8 fL (9.4-12.4); Monocytes # 0.7 K/mcL (0.0-1.3); Monocytes % 8.7 %; Neutrophils # 5.7 K/mcL (1.6-8.9); Platelet Count 249 K/mcL (140-400); Red Blood Count 3.17 M/mcL (4.19-5.50); Red Cell Distribution Width 16.2 % (11.5-14.5); Segmented Neutrophils % 68.8 %; White Blood Count 8.3 K/mcL (4.3-11.1)
[2020-08-25 04:42] LABS: INR 1.1; Prothrombin Time 12.3 Seconds (9.4-12.1)
[2020-08-25 04:52] LABS: BUN/Creatinine Ratio 25 (6-26); Blood Urea Nitrogen 14 mg/dL (8-23); Calcium 7.6 mg/dL (8.6-10.3); Carbon Dioxide 25 mEq/L (23-29); Chloride 112 mEq/L (98-107); Glucose 122 mg/dL (70-105); Magnesium 1.8 mg/dL (1.6-2.6); Osmolality,Calculated 294 (280-300); Phosphorous 2.6 mg/dL (2.7-4.5); Potassium 4.3 mEq/L (3.5-5.1); Sodium 141 mEq/L (136-145); eGFR For African Americans > 60 (> 60); eGFR For Non-African Americans > 60 (> 60)
[2020-08-25 04:54] LABS: ABG Base Excess 0 mEq/L (-2 to 3); ABG HCO3 25 mEq/L (21-27); ABG Oxygen Saturation 93 % (95-98); ABG PCO2 41 mmHg (35-45); ABG PO2 66 mmHg (85-104); ABG TCO2 26 mEq/L (20-26); Blood Gas Modality ASSIST CONTROL; Blood Gas VT 450 cc
[2020-08-25] MEDS: Cefepime HCl 2,000 MG in 0.9 % Sodium Chloride Mini Bag 100 ML IVPB SCH ×2 (05:04→16:51)
[2020-08-25] MEDS: Dexmedetomidine HCl 400 MCG/100 ML MLS IVC SCH ×3 (05:17→20:30)
[2020-08-25] MEDS: lamoTRIgine 100 MG TABLET GTUBE SCH ×2 (08:58→20:10)
[2020-08-25] MEDS: levETIRAcetam 500 MG/5 ML UDC GTUBE SCH ×2 (08:58→20:10)
[2020-08-25] MEDS: metroNIDAZOLE 500 MG TABLET GTUBE SCH ×3 (08:58→20:10)
[2020-08-25] MEDS: valACYclovir 500 MG TABLET GTUBE SCH ×3 (08:58→20:10)
[2020-08-25] MEDS: Chlorhexidine Rinse 15 ML MOUTHWASH MM SCH ×2 (08:58→20:10)
[2020-08-25] MEDS: Pantoprazole 40 MG VIAL IVP SCH (08:59)
[2020-08-25] MEDS: Midazolam HCl 50 MG/100 ML IV.SOLN IVC SCH (09:03)
[2020-08-25] MEDS: Norepinephrine 4 MG/254 ML IV.SOLN IVC SCH (09:03)
[2020-08-25] MEDS ORDERED: Furosemide 20 MG/2 ML VIAL IVP ONE (10:57)
[2020-08-25] MEDS: Vancomycin 1,250 MG/262.5 ML IV.SOLN IVPB SCH ×2 (11:40→23:39)
[2020-08-26] MEDS: Dexmedetomidine HCl 400 MCG/100 ML MLS IVC SCH ×4 (03:30→23:24)
[2020-08-26] MEDS: Artificial Tears SOLN 15 ML BOTTLE BOTH EYES SCH ×6 (04:10→23:27)
[2020-08-26] MEDS: Norepinephrine 4 MG/254 ML IV.SOLN IVC SCH ×2 (04:10→23:27)
[2020-08-26] MEDS: Insulin LISPRO 300 UNITS/3 ML VIAL SUBQ SCH ×6 (04:10→23:24)
[2020-08-26] MEDS: Midazolam HCl 50 MG/100 ML IV.SOLN IVC SCH ×2 (04:10→23:27)
[2020-08-26 04:33] LABS: ABG Base Excess 1 mEq/L (-2 to 3); ABG HCO3 26 mEq/L (21-27); ABG Oxygen Saturation 96 % (95-98); ABG PCO2 44 mmHg (35-45); ABG PH 7.38 pH Units (7.32-7.45); ABG PO2 81 mmHg (85-104); ABG TCO2 27 mEq/L (20-26); Blood Gas Modality ASSIST CONTROL; Blood Gas VT 450 cc
[2020-08-26 04:48] LABS: Basophils % 0.3 %; Eosinophils # 0.3 K/mcL (0.0-0.6); Eosinophils % 2.9 %; Hematocrit 27.5 % (37.5-50.1); Hemoglobin 8.6 g/dL (12.9-16.9); Immature Granulocytes % 1.7 % (0-4); Lymphocytes # 1.4 K/mcL (0.6-4.6); Lymphocytes % 14.8 %; Mean Corpuscular HGB Conc 31.3 g/dL (31.6-35.5); Mean Corpuscular Hemoglobin 27.2 pg (28.0-33.3); Mean Platelet Volume 12.2 fL (9.4-12.4); Monocytes # 0.8 K/mcL (0.0-1.3); Monocytes % 8.6 %; Neutrophils # 6.8 K/mcL (1.6-8.9); Platelet Count 279 K/mcL (140-400); Red Blood Count 3.16 M/mcL (4.19-5.50); Red Cell Distribution Width 16.1 % (11.5-14.5); Segmented Neutrophils % 71.7 %; White Blood Count 9.5 K/mcL (4.3-11.1)
[2020-08-26 04:57] LABS: Alanine Aminotransferase 47 Units/L (7-52); Albumin 2.3 g/dL (3.5-5.7); Albumin/Globulin Ratio 0.7 (1.1-2.2); Alkaline Phosphatase 49 Units/L (34-104); Aspartate Amino Transferase 67 Units/L (13-39); BUN/Creatinine Ratio 25 (6-26); Bilirubin,Total 0.2 mg/dL (0.3-1.0); Blood Urea Nitrogen 15 mg/dL (8-23); Calcium 7.6 mg/dL (8.6-10.3); Carbon Dioxide 25 mEq/L (23-29); Chloride 109 mEq/L (98-107); Globulin 3.5 g/dL (2.4-3.5); Glucose 204 mg/dL (70-105); Magnesium 1.7 mg/dL (1.6-2.6); Osmolality,Calculated 295 (280-300); Phosphorous 2.7 mg/dL (2.7-4.5); Potassium 4.7 mEq/L (3.5-5.1); Sodium 139 mEq/L (136-145); Total Protein 5.8 g/dL (6.4-8.9); eGFR For African Americans > 60 (> 60); eGFR For Non-African Americans > 60 (> 60)
[2020-08-26] MEDS: *HR* Heparin 5,000 UNIT/ML VIAL IVP PRN (05:18)
[2020-08-26] MEDS: Cefepime HCl 2,000 MG in 0.9 % Sodium Chloride Mini Bag 100 ML IVPB SCH ×2 (05:20→18:27)
[2020-08-26] MEDS: FentaNYL (PF) 2,500 MCG/50 ML IV.SOLN IVC SCH ×2 (05:28→19:28)
[2020-08-26] MEDS: Heparin 25,000UNIT/250ML 1/2NS 25,000 UNIT/250 ML IV.SOLN IVC SCH ×2 (07:15→22:34)
[2020-08-26] MEDS ORDERED: Furosemide 20 MG/2 ML VIAL IVP ONE ×2 (07:51→20:15)
[2020-08-26] MEDS: Phenylephrine 50 MG in 0.9 % Sodium Chloride 250 ML IVC SCH ×2 (08:34→19:28)
[2020-08-26] MEDS: Chlorhexidine Rinse 15 ML MOUTHWASH MM SCH ×2 (08:45→20:19)
[2020-08-26] MEDS: levETIRAcetam 500 MG/5 ML UDC GTUBE SCH ×2 (08:45→20:19)
[2020-08-26] MEDS: Pantoprazole 40 MG VIAL IVP SCH (08:45)
[2020-08-26] MEDS: valACYclovir 500 MG TABLET GTUBE SCH ×3 (08:46→20:20)
[2020-08-26] MEDS: lamoTRIgine 100 MG TABLET GTUBE SCH ×2 (08:46→20:20)
[2020-08-26] MEDS: metroNIDAZOLE 500 MG TABLET GTUBE SCH ×3 (08:46→20:19)
[2020-08-26] MEDS ORDERED: Albuterol 2.5 MG/3 ML NEBULIZER IH PRN (10:59)
[2020-08-26] MEDS: Vancomycin 1,250 MG/262.5 ML IV.SOLN IVPB SCH ×2 (11:18→23:23)
[2020-08-26] MEDS: MethylPREDNISolone 40 MG/ML VIAL IVP SCH ×2 (11:22→18:27)
[2020-08-26] MEDS: Metoclopramide 10 MG/10 ML UD.LIQ GTUBE SCH ×2 (11:23→20:19)
[2020-08-26] MEDS: Ipratropium/Albuterol Neb 3 ML IH SCH ×3 (11:50→20:17)
[2020-08-26 19:08] LABS: Magnesium 2.1 mg/dL (1.6-2.6); Phosphorous 2.8 mg/dL (2.7-4.5)
[2020-08-26] MEDS: Docusate Oral Soln 100 MG/10 ML UDC GTUBE SCH (20:19)
[2020-08-27] MEDS: Ipratropium/Albuterol Neb 3 ML IH SCH ×7 (00:06→23:49)
[2020-08-27 04:22] LABS: ABG Base Excess -1 mEq/L (-2 to 3); ABG HCO3 25 mEq/L (21-27); ABG Oxygen Saturation 96 % (95-98); ABG PCO2 47 mmHg (35-45); ABG PH 7.33 pH Units (7.32-7.45); ABG PO2 92 mmHg (85-104); ABG TCO2 26 mEq/L (20-26); Blood Gas Modality AF; Blood Gas VT 450 cc
[2020-08-27] MEDS: Metoclopramide 10 MG/10 ML UD.LIQ GTUBE SCH ×3 (04:41→20:22)
[2020-08-27] MEDS: MethylPREDNISolone 40 MG/ML VIAL IVP SCH ×2 (04:41→17:05)
[2020-08-27] MEDS: Cefepime HCl 2,000 MG in 0.9 % Sodium Chloride Mini Bag 100 ML IVPB SCH ×2 (04:41→17:05)
[2020-08-27 04:43] LABS: Basophils % 0.1 %; Hematocrit 27.5 % (37.5-50.1); Hemoglobin 8.6 g/dL (12.9-16.9); Immature Granulocytes % 1.5 % (0-4); Lymphocytes # 0.8 K/mcL (0.6-4.6); Lymphocytes % 8.2 %; Mean Corpuscular HGB Conc 31.3 g/dL (31.6-35.5); Mean Corpuscular Hemoglobin 26.4 pg (28.0-33.3); Mean Corpuscular Volume 84.4 fL (83.0-100.0); Mean Platelet Volume 11.2 fL (9.4-12.4); Monocytes # 0.3 K/mcL (0.0-1.3); Monocytes % 3.2 %; Neutrophils # 8.8 K/mcL (1.6-8.9); Platelet Count 314 K/mcL (140-400); Red Blood Count 3.26 M/mcL (4.19-5.50); White Blood Count 10.1 K/mcL (4.3-11.1)
[2020-08-27] MEDS: Insulin LISPRO 300 UNITS/3 ML VIAL SUBQ SCH ×6 (04:43→20:22)
[2020-08-27] MEDS: Artificial Tears SOLN 15 ML BOTTLE BOTH EYES SCH ×5 (04:46→20:20)
[2020-08-27 04:53] LABS: INR 1.3; Prothrombin Time 14.5 Seconds (9.4-12.1)
[2020-08-27 05:03] LABS: BUN/Creatinine Ratio 26 (6-26); Blood Urea Nitrogen 21 mg/dL (8-23); Calcium 8.2 mg/dL (8.6-10.3); Carbon Dioxide 25 mEq/L (23-29); Chloride 108 mEq/L (98-107); Glucose 252 mg/dL (70-105); Osmolality,Calculated 300 (280-300); Sodium 139 mEq/L (136-145); eGFR For African Americans > 60 (> 60); eGFR For Non-African Americans > 60 (> 60)
[2020-08-27 06:00] LABS: Activated Partial Thrombo Time 65.7 Seconds (26.0-36.0)
[2020-08-27] MEDS: Dexmedetomidine HCl 400 MCG/100 ML MLS IVC SCH ×3 (06:04→22:59)
[2020-08-27] MEDS: FentaNYL (PF) 2,500 MCG/50 ML IV.SOLN IVC SCH (06:07)
[2020-08-27] MEDS ORDERED: Furosemide 40 MG/4 ML VIAL IVP ONE (07:43)
[2020-08-27] MEDS: Docusate Oral Soln 100 MG/10 ML UDC GTUBE SCH ×2 (08:53→20:22)
[2020-08-27] MEDS: levETIRAcetam 500 MG/5 ML UDC GTUBE SCH ×2 (08:54→20:22)
[2020-08-27] MEDS: lamoTRIgine 100 MG TABLET GTUBE SCH ×2 (08:54→20:22)
[2020-08-27] MEDS: Pantoprazole 40 MG VIAL IVP SCH (08:54)
[2020-08-27] MEDS: Chlorhexidine Rinse 15 ML MOUTHWASH MM SCH ×2 (08:54→20:22)
[2020-08-27] MEDS: metroNIDAZOLE 500 MG TABLET GTUBE SCH ×3 (08:54→20:22)
[2020-08-27] MEDS: valACYclovir 500 MG TABLET GTUBE SCH ×3 (08:55→20:22)
[2020-08-27] MEDS: Vancomycin 1,250 MG/262.5 ML IV.SOLN IVPB SCH ×2 (11:38→22:24)
[2020-08-27] MEDS ORDERED: *HR* FentaNYL (PF) 100 MCG/2 ML VIAL IVP PRN (13:02)
[2020-08-27] MEDS: Heparin 25,000UNIT/250ML 1/2NS 25,000 UNIT/250 ML IV.SOLN IVC SCH (14:34)
[2020-08-27] MEDS ORDERED: *HR* Midazolam HCl 5 MG/5 ML VIAL IVP ONE ×2 (16:02→16:13)
[2020-08-27 22:42] LABS: Appearance of Body Fluid Cloudy (Clear); Volume of Body Fluid 17 mL
[2020-08-28] MEDS: Insulin LISPRO 300 UNITS/3 ML VIAL SUBQ SCH ×7 (00:06→23:16)
[2020-08-28] MEDS: Artificial Tears SOLN 15 ML BOTTLE BOTH EYES SCH ×7 (00:06→23:16)
[2020-08-28] MEDS: FentaNYL (PF) 2,500 MCG/50 ML IV.SOLN IVC SCH ×2 (02:04→18:15)
[2020-08-28] MEDS: Phenylephrine 50 MG in 0.9 % Sodium Chloride 250 ML IVC SCH ×2 (03:08→21:03)
[2020-08-28] MEDS: Norepinephrine 4 MG/254 ML IV.SOLN IVC SCH ×2 (03:08→21:02)
[2020-08-28] MEDS: Midazolam HCl 50 MG/100 ML IV.SOLN IVC SCH ×2 (03:08→21:02)
[2020-08-28] MEDS: Ipratropium/Albuterol Neb 3 ML IH SCH ×6 (03:55→23:14)
[2020-08-28] MEDS: Metoclopramide 10 MG/10 ML UD.LIQ GTUBE SCH ×3 (04:11→19:18)
[2020-08-28 04:27] LABS: Basophils % 0.1 %; Hematocrit 26.1 % (37.5-50.1); Hemoglobin 8.1 g/dL (12.9-16.9); Immature Granulocytes % 1.2 % (0-4); Lymphocytes # 0.8 K/mcL (0.6-4.6); Lymphocytes % 7.3 %; Mean Corpuscular Hemoglobin 26.7 pg (28.0-33.3); Mean Corpuscular Volume 86.1 fL (83.0-100.0); Mean Platelet Volume 11.9 fL (9.4-12.4); Monocytes # 0.6 K/mcL (0.0-1.3); Monocytes % 5.5 %; Neutrophils # 9.9 K/mcL (1.6-8.9); Platelet Count 322 K/mcL (140-400); Red Blood Count 3.03 M/mcL (4.19-5.50); Segmented Neutrophils % 85.9 %; White Blood Count 11.5 K/mcL (4.3-11.1)
[2020-08-28 04:40] LABS: BUN/Creatinine Ratio 41 (6-26); Blood Urea Nitrogen 24 mg/dL (8-23); Calcium 8.1 mg/dL (8.6-10.3); Carbon Dioxide 26 mEq/L (23-29); Chloride 107 mEq/L (98-107); Glucose 193 mg/dL (70-105); Magnesium 1.9 mg/dL (1.6-2.6); Osmolality,Calculated 293 (280-300); Potassium 4.8 mEq/L (3.5-5.1); Sodium 137 mEq/L (136-145); eGFR For African Americans > 60 (> 60); eGFR For Non-African Americans > 60 (> 60)
[2020-08-28 04:43] LABS: ABG Base Excess 0 mEq/L (-2 to 3); ABG HCO3 27 mEq/L (21-27); ABG Oxygen Saturation 94 % (95-98); ABG PCO2 54 mmHg (35-45); ABG PH 7.31 pH Units (7.32-7.45); ABG PO2 79 mmHg (85-104); ABG TCO2 29 mEq/L (20-26); Blood Gas VT 450 cc
[2020-08-28] MEDS: Dexmedetomidine HCl 400 MCG/100 ML MLS IVC SCH ×3 (05:05→23:28)
[2020-08-28] MEDS: MethylPREDNISolone 40 MG/ML VIAL IVP SCH ×2 (05:31→17:58)
[2020-08-28] MEDS: Cefepime HCl 2,000 MG in 0.9 % Sodium Chloride Mini Bag 100 ML IVPB SCH ×2 (05:31→17:59)
[2020-08-28] MEDS: lamoTRIgine 100 MG TABLET GTUBE SCH ×2 (08:08→20:02)
[2020-08-28] MEDS: Docusate Oral Soln 100 MG/10 ML UDC GTUBE SCH ×2 (08:08→20:01)
[2020-08-28] MEDS: valACYclovir 500 MG TABLET GTUBE SCH ×3 (08:08→20:02)
[2020-08-28] MEDS: Chlorhexidine Rinse 15 ML MOUTHWASH MM SCH ×2 (08:08→20:00)
[2020-08-28] MEDS: metroNIDAZOLE 500 MG TABLET GTUBE SCH ×3 (08:08→20:00)
[2020-08-28] MEDS: levETIRAcetam 500 MG/5 ML UDC GTUBE SCH ×2 (08:08→20:01)
[2020-08-28] MEDS: Pantoprazole 40 MG VIAL IVP SCH (08:08)
[2020-08-28] MEDS: Heparin 25,000UNIT/250ML 1/2NS 25,000 UNIT/250 ML IV.SOLN IVC SCH (08:20)
[2020-08-28] MEDS: Vancomycin 1,250 MG/262.5 ML IV.SOLN IVPB SCH ×2 (12:09→21:02)
[2020-08-28 14:15] LABS: Magnesium 2.1 mg/dL (1.6-2.6); Phosphorous 2.6 mg/dL (2.7-4.5)
[2020-08-28] MEDS: *HR* Enoxaparin 100 MG/ML SYRINGE SQ SCH (17:57)
[2020-08-29] MEDS: Phenylephrine 50 MG in 0.9 % Sodium Chloride 250 ML IVC SCH (03:09)
[2020-08-29] MEDS: Artificial Tears SOLN 15 ML BOTTLE BOTH EYES SCH ×4 (03:10→17:31)
[2020-08-29] MEDS: Metoclopramide 10 MG/10 ML UD.LIQ GTUBE SCH ×3 (03:12→19:43)
[2020-08-29 03:14] LABS: Basophils % 0.1 %; Hemoglobin 7.8 g/dL (12.9-16.9); Immature Granulocytes % 0.9 % (0-4); Lymphocytes % 10.1 %; Mean Corpuscular HGB Conc 31.2 g/dL (31.6-35.5); Mean Corpuscular Hemoglobin 26.6 pg (28.0-33.3); Mean Corpuscular Volume 85.3 fL (83.0-100.0); Mean Platelet Volume 11.2 fL (9.4-12.4); Monocytes # 0.8 K/mcL (0.0-1.3); Monocytes % 8.5 %; Neutrophils # 7.7 K/mcL (1.6-8.9); Nucleated Red Blood Cells 0.2 /100 WBC (0); Platelet Count 319 K/mcL (140-400); Red Blood Count 2.93 M/mcL (4.19-5.50); Segmented Neutrophils % 80.4 %; White Blood Count 9.6 K/mcL (4.3-11.1)
[2020-08-29] MEDS: Insulin LISPRO 300 UNITS/3 ML VIAL SUBQ SCH ×6 (03:21→23:11)
[2020-08-29] MEDS: Ipratropium/Albuterol Neb 3 ML IH SCH ×6 (03:23→23:39)
[2020-08-29 03:29] LABS: BUN/Creatinine Ratio 35 (6-26); Blood Urea Nitrogen 26 mg/dL (8-23); Calcium 8.1 mg/dL (8.6-10.3); Carbon Dioxide 26 mEq/L (23-29); Chloride 111 mEq/L (98-107); Glucose 144 mg/dL (70-105); Magnesium 2.1 mg/dL (1.6-2.6); Osmolality,Calculated 297 (280-300); Potassium 5.2 mEq/L (3.5-5.1); Sodium 140 mEq/L (136-145); eGFR For African Americans > 60 (> 60); eGFR For Non-African Americans > 60 (> 60)
[2020-08-29 04:03] LABS: ABG Base Excess -1 mEq/L (-2 to 3); ABG HCO3 26 mEq/L (21-27); ABG Oxygen Saturation 93 % (95-98); ABG PCO2 48 mmHg (35-45); ABG PH 7.33 pH Units (7.32-7.45); ABG PO2 73 mmHg (85-104); ABG TCO2 27 mEq/L (20-26); Blood Gas VT 450 cc
[2020-08-29] MEDS: MethylPREDNISolone 40 MG/ML VIAL IVP SCH ×2 (05:00→17:32)
[2020-08-29] MEDS: *HR* Enoxaparin 100 MG/ML SYRINGE SQ SCH ×2 (05:00→17:31)
[2020-08-29] MEDS: Cefepime HCl 2,000 MG in 0.9 % Sodium Chloride Mini Bag 100 ML IVPB SCH ×2 (05:01→17:33)
[2020-08-29] MEDS: Dexmedetomidine HCl 400 MCG/100 ML MLS IVC SCH ×3 (06:23→22:23)
[2020-08-29] MEDS ORDERED: Furosemide 40 MG/4 ML VIAL IVP ONE (07:33)
[2020-08-29] MEDS: Pantoprazole 40 MG VIAL IVP SCH (08:14)
[2020-08-29] MEDS: metroNIDAZOLE 500 MG TABLET GTUBE SCH ×3 (08:14→20:02)
[2020-08-29] MEDS: levETIRAcetam 500 MG/5 ML UDC GTUBE SCH ×2 (08:14→20:02)
[2020-08-29] MEDS: Chlorhexidine Rinse 15 ML MOUTHWASH MM SCH (08:14)
[2020-08-29] MEDS: Docusate Oral Soln 100 MG/10 ML UDC GTUBE SCH ×2 (08:14→19:43)
[2020-08-29] MEDS: lamoTRIgine 100 MG TABLET GTUBE SCH ×2 (08:15→20:02)
[2020-08-29] MEDS: valACYclovir 500 MG TABLET GTUBE SCH ×3 (08:15→20:02)
[2020-08-29] MEDS: Vancomycin 1,250 MG/262.5 ML IV.SOLN IVPB SCH ×2 (11:00→21:03)
[2020-08-29] MEDS: Norepinephrine 4 MG/254 ML IV.SOLN IVC SCH (23:11)
[2020-08-29] MEDS: Midazolam HCl 50 MG/100 ML IV.SOLN IVC SCH (23:12)
[2020-08-30] MEDS: Metoclopramide 10 MG/10 ML UD.LIQ GTUBE SCH (03:06)
[2020-08-30 03:19] LABS: Basophils % 0.1 %; Hematocrit 25.3 % (37.5-50.1); Hemoglobin 7.9 g/dL (12.9-16.9); Immature Granulocytes % 1.2 % (0-4); Lymphocytes # 1.3 K/mcL (0.6-4.6); Lymphocytes % 13.9 %; Mean Corpuscular HGB Conc 31.2 g/dL (31.6-35.5); Mean Corpuscular Hemoglobin 27.3 pg (28.0-33.3); Mean Corpuscular Volume 87.5 fL (83.0-100.0); Monocytes # 0.6 K/mcL (0.0-1.3); Monocytes % 6.7 %; Neutrophils # 7.1 K/mcL (1.6-8.9); Platelet Count 344 K/mcL (140-400); Red Blood Count 2.89 M/mcL (4.19-5.50); Red Cell Distribution Width 15.9 % (11.5-14.5); Segmented Neutrophils % 78.1 %
[2020-08-30] MEDS: Ipratropium/Albuterol Neb 3 ML IH SCH ×5 (03:36→20:06)
[2020-08-30 03:41] LABS: BUN/Creatinine Ratio 32 (6-26); Blood Urea Nitrogen 21 mg/dL (8-23); Calcium 8.3 mg/dL (8.6-10.3); Carbon Dioxide 29 mEq/L (23-29); Chloride 108 mEq/L (98-107); Glucose 162 mg/dL (70-105); Magnesium 1.7 mg/dL (1.6-2.6); Osmolality,Calculated 295 (280-300); Potassium 4.3 mEq/L (3.5-5.1); Sodium 139 mEq/L (136-145); eGFR For African Americans > 60 (> 60); eGFR For Non-African Americans > 60 (> 60)
[2020-08-30] MEDS: Insulin LISPRO 300 UNITS/3 ML VIAL SUBQ SCH ×6 (03:50→23:53)
[2020-08-30] MEDS: MethylPREDNISolone 40 MG/ML VIAL IVP SCH (05:00)
[2020-08-30] MEDS: *HR* Enoxaparin 100 MG/ML SYRINGE SQ SCH ×2 (05:00→17:15)
[2020-08-30] MEDS: Cefepime HCl 2,000 MG in 0.9 % Sodium Chloride Mini Bag 100 ML IVPB SCH (05:01)
[2020-08-30] MEDS: lamoTRIgine 100 MG TABLET GTUBE SCH ×2 (08:24→20:24)
[2020-08-30] MEDS: Pantoprazole 40 MG VIAL IVP SCH (08:24)
[2020-08-30] MEDS: Docusate Oral Soln 100 MG/10 ML UDC GTUBE SCH (08:24)
[2020-08-30] MEDS: valACYclovir 500 MG TABLET GTUBE SCH ×3 (08:24→20:20)
[2020-08-30] MEDS: levETIRAcetam 500 MG/5 ML UDC GTUBE SCH ×2 (08:24→20:24)
[2020-08-30] MEDS: metroNIDAZOLE 500 MG TABLET GTUBE SCH ×3 (08:24→20:25)
[2020-08-30] MEDS ORDERED: QUEtiapine Fumarate 25 MG TABLET PO SCH (10:30)
[2020-08-30] MEDS: Dexmedetomidine HCl 400 MCG/100 ML MLS IVC SCH ×3 (10:32→20:21)
[2020-08-30] MEDS ORDERED: Dextrose Gel 15 GM/37.5 ML TUBE PO PRN ×2 (14:36)
[2020-08-30] MEDS ORDERED: D5% in Water 1,000 ML IVC PRN (14:36)
[2020-08-30] MEDS ORDERED: Docusate Oral Soln 100 MG/10 ML UDC GTUBE PRN (14:36)
[2020-08-30] MEDS ORDERED: Albuterol 2.5 MG/3 ML NEBULIZER IH PRN (14:36)
[2020-08-30] MEDS ORDERED: Naloxone 0.4 MG/ML INJ IVP PRN (14:36)
[2020-08-30] MEDS ORDERED: *HR* Dextrose 50 % in Water (Vial) 50 ML VIAL IVP PRN (14:36)
[2020-08-30] MEDS: Cefepime HCl 2,000 MG in Water for inj. (sterile) 20 ML IVP SCH (17:14)
[2020-08-30] MEDS: QUEtiapine Fumarate 25 MG TABLET PO SCH (20:25)
[2020-08-31] MEDS: Ipratropium/Albuterol Neb 3 ML IH SCH ×7 (00:05→23:25)
[2020-08-31] MEDS: Insulin LISPRO 300 UNITS/3 ML VIAL SUBQ SCH ×5 (04:01→21:08)
[2020-08-31] MEDS: Dexmedetomidine HCl 400 MCG/100 ML MLS IVC SCH ×3 (04:09→19:17)
[2020-08-31 05:01] LABS: Basophils % 0.3 %; Eosinophils # 0.2 K/mcL (0.0-0.6); Eosinophils % 1.5 %; Hematocrit 26.8 % (37.5-50.1); Hemoglobin 8.1 g/dL (12.9-16.9); Immature Granulocytes % 2.2 % (0-4); Lymphocytes # 1.9 K/mcL (0.6-4.6); Lymphocytes % 17.4 %; Mean Corpuscular HGB Conc 30.2 g/dL (31.6-35.5); Mean Corpuscular Hemoglobin 26.2 pg (28.0-33.3); Mean Corpuscular Volume 86.7 fL (83.0-100.0); Mean Platelet Volume 11.2 fL (9.4-12.4); Monocytes # 0.6 K/mcL (0.0-1.3); Monocytes % 5.8 %; Neutrophils # 7.9 K/mcL (1.6-8.9); Nucleated Red Blood Cells 0.2 /100 WBC (0); Platelet Count 365 K/mcL (140-400); Red Blood Count 3.09 M/mcL (4.19-5.50); Red Cell Distribution Width 15.9 % (11.5-14.5); Segmented Neutrophils % 72.8 %; White Blood Count 10.9 K/mcL (4.3-11.1)
[2020-08-31 05:07] LABS: INR 1.2; Prothrombin Time 13.5 Seconds (9.4-12.1)
[2020-08-31 05:13] LABS: Activated Partial Thrombo Time 26.4 Seconds (26.0-36.0)
[2020-08-31 05:23] LABS: Alanine Aminotransferase 65 Units/L (7-52); Albumin 2.4 g/dL (3.5-5.7); Albumin/Globulin Ratio 0.8 (1.1-2.2); Alkaline Phosphatase 90 Units/L (34-104); Aspartate Amino Transferase 87 Units/L (13-39); BUN/Creatinine Ratio 22 (6-26); Bilirubin,Total 0.2 mg/dL (0.3-1.0); Blood Urea Nitrogen 13 mg/dL (8-23); Calcium 8.6 mg/dL (8.6-10.3); Carbon Dioxide 32 mEq/L (23-29); Chloride 106 mEq/L (98-107); Globulin 2.9 g/dL (2.4-3.5); Glucose 189 mg/dL (70-105); Magnesium 1.7 mg/dL (1.6-2.6); Osmolality,Calculated 295 (280-300); Phosphorous 3.3 mg/dL (2.7-4.5); Sodium 140 mEq/L (136-145); Total Protein 5.3 g/dL (6.4-8.9); eGFR For African Americans > 60 (> 60); eGFR For Non-African Americans > 60 (> 60)
[2020-08-31] MEDS: Cefepime HCl 2,000 MG in Water for inj. (sterile) 20 ML IVP SCH ×2 (05:49→17:12)
[2020-08-31] MEDS: *HR* Enoxaparin 100 MG/ML SYRINGE SQ SCH ×2 (05:50→17:12)
[2020-08-31] MEDS: MethylPREDNISolone 40 MG/ML VIAL IVP SCH (07:50)
[2020-08-31] MEDS: QUEtiapine Fumarate 25 MG TABLET PO SCH ×2 (07:50→21:08)
[2020-08-31] MEDS: Pantoprazole 40 MG VIAL IVP SCH (07:50)
[2020-08-31] MEDS: levETIRAcetam 500 MG/5 ML UDC GTUBE SCH ×2 (07:50→21:07)
[2020-08-31] MEDS: metroNIDAZOLE 500 MG TABLET GTUBE SCH ×3 (07:51→21:08)
[2020-08-31] MEDS: lamoTRIgine 100 MG TABLET GTUBE SCH ×2 (07:51→21:19)
[2020-08-31] MEDS ORDERED: MethylPREDNISolone 40 MG/ML VIAL IVP SCH (09:00)
[2020-09-01] MEDS: Insulin LISPRO 300 UNITS/3 ML VIAL SUBQ SCH ×7 (03:31→23:56)
[2020-09-01] MEDS: Ipratropium/Albuterol Neb 3 ML IH SCH ×6 (03:32→23:10)
[2020-09-01] MEDS: *HR* Enoxaparin 100 MG/ML SYRINGE SQ SCH ×2 (05:58→18:58)
[2020-09-01] MEDS: Cefepime HCl 2,000 MG in Water for inj. (sterile) 20 ML IVP SCH ×2 (05:59→18:30)
[2020-09-01] MEDS ORDERED: 0.9 % Sodium Chloride 1,000 ML IVC ONE (07:25)
[2020-09-01] MEDS: levETIRAcetam 500 MG/5 ML UDC GTUBE SCH ×2 (08:07→20:22)
[2020-09-01] MEDS: Pantoprazole 40 MG VIAL IVP SCH (08:08)
[2020-09-01] MEDS: QUEtiapine Fumarate 25 MG TABLET PO SCH ×2 (08:08→20:20)
[2020-09-01] MEDS: MethylPREDNISolone 40 MG/ML VIAL IVP SCH (08:08)
[2020-09-01] MEDS: lamoTRIgine 100 MG TABLET GTUBE SCH ×2 (08:08→20:21)
[2020-09-01] MEDS: metroNIDAZOLE 500 MG TABLET GTUBE SCH ×3 (08:08→20:21)
[2020-09-01] MEDS ORDERED: 0.9 % Sodium Chloride 500 ML IVC ONE (13:00)
[2020-09-01] MEDS ORDERED: *HR* Metoprolol 5 MG/5 ML VIAL IVP ONE (13:00)
[2020-09-02 03:00] LABS: Basophils # 0.1 K/mcL (0.0-0.2); Basophils % 0.6 %; Eosinophils # 0.2 K/mcL (0.0-0.6); Eosinophils % 1.1 %; Hematocrit 27.9 % (37.5-50.1); Hemoglobin 8.8 g/dL (12.9-16.9); Immature Granulocytes % 3.6 % (0-4); Lymphocytes # 3.1 K/mcL (0.6-4.6); Lymphocytes % 19.1 %; Mean Corpuscular HGB Conc 31.5 g/dL (31.6-35.5); Mean Corpuscular Hemoglobin 27.3 pg (28.0-33.3); Mean Corpuscular Volume 86.6 fL (83.0-100.0); Mean Platelet Volume 10.6 fL (9.4-12.4); Monocytes % 6.1 %; Neutrophils # 11.1 K/mcL (1.6-8.9); Platelet Count 501 K/mcL (140-400); Red Blood Count 3.22 M/mcL (4.19-5.50); Red Cell Distribution Width 16.3 % (11.5-14.5); Segmented Neutrophils % 69.5 %
[2020-09-02] MEDS: Ipratropium/Albuterol Neb 3 ML IH SCH ×6 (03:11→23:35)
[2020-09-02 03:19] LABS: BUN/Creatinine Ratio 26 (6-26); Blood Urea Nitrogen 16 mg/dL (8-23); Calcium 8.5 mg/dL (8.6-10.3); Carbon Dioxide 33 mEq/L (23-29); Chloride 104 mEq/L (98-107); Glucose 101 mg/dL (70-105); Magnesium 1.9 mg/dL (1.6-2.6); Osmolality,Calculated 293 (280-300); Phosphorous 2.6 mg/dL (2.7-4.5); Sodium 141 mEq/L (136-145); eGFR For African Americans > 60 (> 60); eGFR For Non-African Americans > 60 (> 60)
[2020-09-02] MEDS: Insulin LISPRO 300 UNITS/3 ML VIAL SUBQ SCH ×6 (04:19→23:51)
[2020-09-02] MEDS: *HR* Enoxaparin 100 MG/ML SYRINGE SQ SCH ×2 (05:13→16:39)
[2020-09-02] MEDS: Cefepime HCl 2,000 MG in Water for inj. (sterile) 20 ML IVP SCH ×2 (05:14→16:39)
[2020-09-02] MEDS: levETIRAcetam 500 MG/5 ML UDC GTUBE SCH ×2 (07:50→20:35)
[2020-09-02] MEDS: MethylPREDNISolone 40 MG/ML VIAL IVP SCH (07:50)
[2020-09-02] MEDS: Pantoprazole 40 MG VIAL IVP SCH (07:50)
[2020-09-02] MEDS: metroNIDAZOLE 500 MG TABLET GTUBE SCH ×3 (07:50→20:34)
[2020-09-02] MEDS: QUEtiapine Fumarate 25 MG TABLET PO SCH ×2 (07:50→20:35)
[2020-09-02] MEDS: lamoTRIgine 100 MG TABLET GTUBE SCH ×2 (07:50→20:35)
[2020-09-03 01:43] LABS: Basophils % 0.3 %; Eosinophils # 0.1 K/mcL (0.0-0.6); Hematocrit 27.1 % (37.5-50.1); Hemoglobin 8.4 g/dL (12.9-16.9); Immature Granulocytes % 2.8 % (0-4); Lymphocytes # 2.8 K/mcL (0.6-4.6); Lymphocytes % 23.6 %; Mean Corpuscular Hemoglobin 27.1 pg (28.0-33.3); Mean Corpuscular Volume 87.4 fL (83.0-100.0); Mean Platelet Volume 10.3 fL (9.4-12.4); Monocytes # 0.9 K/mcL (0.0-1.3); Monocytes % 7.6 %; Neutrophils # 7.5 K/mcL (1.6-8.9); Platelet Count 479 K/mcL (140-400); Red Cell Distribution Width 17.1 % (11.5-14.5); Segmented Neutrophils % 64.7 %; White Blood Count 11.6 K/mcL (4.3-11.1)
[2020-09-03 02:01] LABS: Magnesium 1.6 mg/dL (1.6-2.6); Phosphorous 2.5 mg/dL (2.7-4.5)
[2020-09-03] MEDS: Ipratropium/Albuterol Neb 3 ML IH SCH ×6 (03:30→23:28)
[2020-09-03] MEDS: Insulin LISPRO 300 UNITS/3 ML VIAL SUBQ SCH ×5 (04:01→20:25)
[2020-09-03] MEDS: *HR* Enoxaparin 100 MG/ML SYRINGE SQ SCH ×2 (05:36→18:15)
[2020-09-03] MEDS: Cefepime HCl 2,000 MG in Water for inj. (sterile) 20 ML IVP SCH ×2 (05:36→18:18)
[2020-09-03] MEDS: Pantoprazole 40 MG VIAL IVP SCH (08:57)
[2020-09-03] MEDS: QUEtiapine Fumarate 25 MG TABLET PO SCH ×2 (08:57→20:05)
[2020-09-03] MEDS: metroNIDAZOLE 500 MG TABLET GTUBE SCH ×3 (08:57→20:05)
[2020-09-03] MEDS: lamoTRIgine 100 MG TABLET GTUBE SCH ×2 (08:57→20:04)
[2020-09-03] MEDS: levETIRAcetam 500 MG/5 ML UDC GTUBE SCH ×2 (08:57→20:05)
[2020-09-03] MEDS: MethylPREDNISolone 40 MG/ML VIAL IVP SCH (08:57)
[2020-09-04] MEDS: Insulin LISPRO 300 UNITS/3 ML VIAL SUBQ SCH ×6 (00:06→20:42)
[2020-09-04 02:14] LABS: Basophils % 0.4 %; Eosinophils # 0.3 K/mcL (0.0-0.6); Eosinophils % 2.4 %; Hematocrit 28.2 % (37.5-50.1); Hemoglobin 8.7 g/dL (12.9-16.9); Lymphocytes % 18.6 %; Mean Corpuscular HGB Conc 30.9 g/dL (31.6-35.5); Mean Corpuscular Hemoglobin 27.2 pg (28.0-33.3); Mean Corpuscular Volume 88.1 fL (83.0-100.0); Mean Platelet Volume 10.4 fL (9.4-12.4); Monocytes % 9.6 %; Neutrophils # 7.1 K/mcL (1.6-8.9); Platelet Count 525 K/mcL (140-400); Red Cell Distribution Width 17.1 % (11.5-14.5); White Blood Count 10.5 K/mcL (4.3-11.1)
[2020-09-04 02:33] LABS: BUN/Creatinine Ratio 24 (6-26); Blood Urea Nitrogen 14 mg/dL (8-23); Calcium 8.4 mg/dL (8.6-10.3); Carbon Dioxide 35 mEq/L (23-29); Chloride 101 mEq/L (98-107); Glucose 159 mg/dL (70-105); Magnesium 1.6 mg/dL (1.6-2.6); Osmolality,Calculated 292 (280-300); Phosphorous 2.9 mg/dL (2.7-4.5); Potassium 3.9 mEq/L (3.5-5.1); Sodium 139 mEq/L (136-145); eGFR For African Americans > 60 (> 60); eGFR For Non-African Americans > 60 (> 60)
[2020-09-04] MEDS: Ipratropium/Albuterol Neb 3 ML IH SCH (03:59)
[2020-09-04] MEDS: Cefepime HCl 2,000 MG in Water for inj. (sterile) 20 ML IVP SCH ×2 (05:47→17:00)
[2020-09-04] MEDS: *HR* Enoxaparin 100 MG/ML SYRINGE SQ SCH (05:48)
[2020-09-04] MEDS: metroNIDAZOLE 500 MG TABLET GTUBE SCH ×3 (07:22→20:52)
[2020-09-04] MEDS: levETIRAcetam 500 MG/5 ML UDC GTUBE SCH ×2 (07:22→20:53)
[2020-09-04] MEDS: lamoTRIgine 100 MG TABLET GTUBE SCH ×2 (07:22→20:52)
[2020-09-04] MEDS: QUEtiapine Fumarate 25 MG TABLET PO SCH ×2 (07:23→20:52)
[2020-09-04] MEDS: Pantoprazole 40 MG VIAL IVP SCH (07:23)
[2020-09-04] MEDS: MethylPREDNISolone 40 MG/ML VIAL IVP SCH (07:23)
[2020-09-04] MEDS ORDERED: Ipratropium/Albuterol Neb 3 ML IH PRN (07:35)
[2020-09-04] MEDS: predniSONE 20 MG TABLET GTUBE SCH (07:44)
[2020-09-04] MEDS ORDERED: Ipratropium Neb 0.5 MG NEBULIZER IH PRN (08:49)
[2020-09-04 09:51] LABS: VBG HCO3 33 mEq/L (21-27); VBG PCO2 54 mmHg (41-51); VBG PH 7.39 pH Units (7.32-7.42); VBG PO2 80 mmHg (25-50)
[2020-09-04] MEDS: Levalbuterol Neb 0.63 MG/3 ML IH SCH ×3 (11:12→23:04)
[2020-09-04] MEDS ORDERED: Ringers Solution, Lactated 1,000 ML IVC SCH (14:15)
[2020-09-04] MEDS: Apixaban 5 MG TABLET GTUBE SCH (20:52)
[2020-09-05] MEDS: Insulin LISPRO 300 UNITS/3 ML VIAL SUBQ SCH ×6 (00:13→20:27)
[2020-09-05] MEDS: Levalbuterol Neb 0.63 MG/3 ML IH SCH ×4 (03:33→22:38)
[2020-09-05 03:40] LABS: Basophils % 0.2 %; Eosinophils # 0.2 K/mcL (0.0-0.6); Eosinophils % 1.2 %; Hematocrit 27.4 % (37.5-50.1); Hemoglobin 8.6 g/dL (12.9-16.9); Immature Granulocytes % 1.2 % (0-4); Lymphocytes # 1.6 K/mcL (0.6-4.6); Lymphocytes % 12.1 %; Mean Corpuscular HGB Conc 31.4 g/dL (31.6-35.5); Mean Corpuscular Hemoglobin 27.7 pg (28.0-33.3); Mean Corpuscular Volume 88.1 fL (83.0-100.0); Mean Platelet Volume 10.3 fL (9.4-12.4); Monocytes # 1.3 K/mcL (0.0-1.3); Monocytes % 10.1 %; Neutrophils # 9.7 K/mcL (1.6-8.9); Platelet Count 524 K/mcL (140-400); Red Blood Count 3.11 M/mcL (4.19-5.50); Red Cell Distribution Width 17.4 % (11.5-14.5); Segmented Neutrophils % 75.2 %; White Blood Count 12.9 K/mcL (4.3-11.1)
[2020-09-05 03:58] LABS: Magnesium 2.1 mg/dL (1.6-2.6); Phosphorous 2.5 mg/dL (2.7-4.5)
[2020-09-05] MEDS: Cefepime HCl 2,000 MG in Water for inj. (sterile) 20 ML IVP SCH ×2 (05:43→18:31)
[2020-09-05] MEDS: metroNIDAZOLE 500 MG TABLET GTUBE SCH ×3 (09:19→20:04)
[2020-09-05] MEDS: QUEtiapine Fumarate 25 MG TABLET PO SCH ×2 (09:19→20:04)
[2020-09-05] MEDS: levETIRAcetam 500 MG/5 ML UDC GTUBE SCH ×2 (09:19→20:04)
[2020-09-05] MEDS: predniSONE 20 MG TABLET GTUBE SCH (09:19)
[2020-09-05] MEDS: lamoTRIgine 100 MG TABLET GTUBE SCH ×2 (09:19→20:04)
[2020-09-05] MEDS: Apixaban 5 MG TABLET GTUBE SCH ×2 (09:19→20:04)
[2020-09-05 09:33] LABS: Bilirubin,Urine Negative (Negative); Blood,Urine Negative (Negative); Clarity,Urine Clear (Clear); Color,Urine Light-Yellow (Yellow); Glucose,Urine (UA) 200 mg/dL (Normal); Ketones,Urine Negative (Negative); Leukocyte Esterase,Urine Negative (Negative); Mucus,Urine Few per lpf (None-Few); Nitrite,Urine Negative (Negative); PH,Urine 7.5 pH Units (5.0-8.0); Protein,Urine 30 mg/dL (Neg-Trace); RBC,Urine 0-3 per hpf (0-3); Specific Gravity,Urine 1.017 (1.010-1.025); Urobilinogen,Urine Normal (Normal)
[2020-09-05 14:42] LABS: Adenovirus F 40/41 PCR Not detected (Not detect); Astrovirus PCR Not detected (Not detect); C.difficile Toxin A/B Gene PCR Not detected (Not detect); Campylobacter by PCR Not detected (Not detect); Cryptosporidium by PCR Not detected (Not detect); Cyclospora cayetanensis PCR Not detected (Not detect); E. coli O157 by PCR Not detected (Not detect); Entamoeba histolytica PCR Not detected (Not detect); Enteroaggregative E.coli(EAEC) Not detected (Not detect); Enteropathogenic E.coli(EPEC) Not detected (Not detect); Enterotoxigenic E.coli (ETEC) Not detected (Not detect); Giardia lamblia PCR Not detected (Not detect); Norovirus GI/GII PCR Not detected (Not detect); Plesiomonas shigelloides PCR Not detected (Not detect); Rotavirus A PCR Not detected (Not detect); Salmonella PCR Not detected (Not detect); Sapovirus PCR Not detected (Not detect); Shig/EnteroinvasiveE coli EIEC Not detected (Not detect); Shigalike tox-prod E coli STEC Not detected (Not detect); Vibrio PCR Not detected (Not detect); Vibrio cholerae PCR Not detected (Not detect); Yersinia enterocolitica PCR Not detected (Not detect)
[2020-09-05] MEDS: Ringers Solution, Lactated 1,000 ML IVC SCH (16:11)
[2020-09-06] MEDS: Insulin LISPRO 300 UNITS/3 ML VIAL SUBQ SCH ×6 (00:30→20:37)
[2020-09-06] MEDS: Levalbuterol Neb 0.63 MG/3 ML IH SCH ×4 (04:05→22:29)
[2020-09-06] MEDS: Ringers Solution, Lactated 1,000 ML IVC SCH (04:41)
[2020-09-06 05:04] LABS: Basophils % 0.2 %; Eosinophils # 0.1 K/mcL (0.0-0.6); Eosinophils % 1.2 %; Hematocrit 27.4 % (37.5-50.1); Hemoglobin 8.6 g/dL (12.9-16.9); Immature Granulocytes % 1.5 % (0-4); Lymphocytes # 2.5 K/mcL (0.6-4.6); Lymphocytes % 23.5 %; Mean Corpuscular HGB Conc 31.4 g/dL (31.6-35.5); Mean Corpuscular Hemoglobin 27.6 pg (28.0-33.3); Mean Corpuscular Volume 87.8 fL (83.0-100.0); Mean Platelet Volume 10.1 fL (9.4-12.4); Monocytes # 1.2 K/mcL (0.0-1.3); Monocytes % 11.4 %; Neutrophils # 6.6 K/mcL (1.6-8.9); Platelet Count 556 K/mcL (140-400); Red Blood Count 3.12 M/mcL (4.19-5.50); Red Cell Distribution Width 17.8 % (11.5-14.5); Segmented Neutrophils % 62.2 %; White Blood Count 10.5 K/mcL (4.3-11.1)
[2020-09-06 05:20] LABS: BUN/Creatinine Ratio 29 (6-26); Blood Urea Nitrogen 15 mg/dL (8-23); Calcium 8.2 mg/dL (8.6-10.3); Carbon Dioxide 31 mEq/L (23-29); Chloride 102 mEq/L (98-107); Glucose 133 mg/dL (70-105); Magnesium 1.7 mg/dL (1.6-2.6); Osmolality,Calculated 287 (280-300); Potassium 4.1 mEq/L (3.5-5.1); Sodium 137 mEq/L (136-145); eGFR For African Americans > 60 (> 60); eGFR For Non-African Americans > 60 (> 60)
[2020-09-06] MEDS: Cefepime HCl 2,000 MG in Water for inj. (sterile) 20 ML IVP SCH ×2 (05:30→17:10)
[2020-09-06] MEDS: QUEtiapine Fumarate 25 MG TABLET PO SCH ×2 (09:23→20:10)
[2020-09-06] MEDS: metroNIDAZOLE 500 MG TABLET GTUBE SCH ×3 (09:23→20:10)
[2020-09-06] MEDS: levETIRAcetam 500 MG/5 ML UDC GTUBE SCH ×2 (09:23→20:10)
[2020-09-06] MEDS: lamoTRIgine 100 MG TABLET GTUBE SCH ×2 (09:24→20:10)
[2020-09-06] MEDS: predniSONE 20 MG TABLET GTUBE SCH (09:24)
[2020-09-06] MEDS: Apixaban 5 MG TABLET GTUBE SCH (09:24)
[2020-09-06] MEDS: Pantoprazole 40 MG VIAL IVP SCH ×2 (10:28→17:10)
[2020-09-06 10:46] LABS: Hematocrit 25.9 % (37.5-50.1); Hemoglobin 7.9 g/dL (12.9-16.9)
[2020-09-06] MEDS ORDERED: Ringers Solution, Lactated 500 ML IVC PRN (12:56)
[2020-09-06] MEDS ORDERED: 0.9 % Sodium Chloride 250 ML IVC SCH (13:00)
[2020-09-06] MEDS ORDERED: Ringers Solution, Lactated 250 ML IVC ONE (14:00)
[2020-09-06 19:46] LABS: Hematocrit 29.4 % (37.5-50.1); Hemoglobin 9.3 g/dL (12.9-16.9)
[2020-09-07] MEDS: Insulin LISPRO 300 UNITS/3 ML VIAL SUBQ SCH ×6 (03:26→20:53)
[2020-09-07] MEDS: Levalbuterol Neb 0.63 MG/3 ML IH SCH ×4 (04:03→22:26)
[2020-09-07 05:22] LABS: Hematocrit 30.9 % (37.5-50.1); Hemoglobin 9.6 g/dL (12.9-16.9)
[2020-09-07 05:43] LABS: Magnesium 1.6 mg/dL (1.6-2.6); Phosphorous 3.2 mg/dL (2.7-4.5)
[2020-09-07] MEDS: Pantoprazole 40 MG VIAL IVP SCH ×2 (05:45→18:41)
[2020-09-07] MEDS: Cefepime HCl 2,000 MG in Water for inj. (sterile) 20 ML IVP SCH ×2 (05:46→18:40)
[2020-09-07] MEDS: predniSONE 20 MG TABLET GTUBE SCH (10:22)
[2020-09-07] MEDS: lamoTRIgine 100 MG TABLET GTUBE SCH ×2 (10:22→20:54)
[2020-09-07] MEDS: metroNIDAZOLE 500 MG TABLET GTUBE SCH ×3 (10:22→20:54)
[2020-09-07] MEDS: QUEtiapine Fumarate 25 MG TABLET PO SCH ×2 (10:22→20:54)
[2020-09-07] MEDS: levETIRAcetam 500 MG/5 ML UDC GTUBE SCH ×2 (10:23→21:17)
[2020-09-07 11:50] LABS: Adenovirus Not Detected (Not Detect); Bordetella Pertussis Not Detected (Not Detect); Chlamydophila pneumoniae Not Detected (Not Detect); Coronavirus 229E Not Detected (Not Detect); Coronavirus HKU1 Not Detected (Not Detect); Coronavirus NL63 Not Detected (Not Detect); Coronavirus OC43 Not Detected (Not Detect); Human Metapneumovirus Not Detected (Not Detect); Human Rhinovirus/Enterovirus Not Detected (Not Detect); Influenza A Subtype 2009 H1 Not Detected (Not Detect); Influenza B Not Detected (Not Detect); Mycoplasma pneumoniae Not Detected (Not Detect); Parainfluenza Virus 1 Not Detected (Not Detect); Parainfluenza Virus 2 Not Detected (Not Detect); Parainfluenza Virus 3 Not Detected (Not Detect); Parainfluenza Virus 4 Not Detected (Not Detect); Respiratory Syncytial Virus Not Detected (Not Detect); SARS-CoV-2 Not Detected (Not Detect)
[2020-09-08] MEDS: Insulin LISPRO 300 UNITS/3 ML VIAL SUBQ SCH ×6 (01:34→20:25)
[2020-09-08] MEDS: Levalbuterol Neb 0.63 MG/3 ML IH SCH ×4 (04:03→22:53)
[2020-09-08 04:09] LABS: Hematocrit 26.8 % (37.5-50.1); Hemoglobin 8.5 g/dL (12.9-16.9)
[2020-09-08 04:29] LABS: BUN/Creatinine Ratio 22 (6-26); Blood Urea Nitrogen 16 mg/dL (8-23); Calcium 8.9 mg/dL (8.6-10.3); Carbon Dioxide 30 mEq/L (23-29); Chloride 99 mEq/L (98-107); Glucose 128 mg/dL (70-105); Magnesium 1.7 mg/dL (1.6-2.6); Osmolality,Calculated 285 (280-300); Potassium 4.1 mEq/L (3.5-5.1); Sodium 136 mEq/L (136-145); eGFR For African Americans > 60 (> 60); eGFR For Non-African Americans > 60 (> 60)
[2020-09-08] MEDS: Pantoprazole 40 MG VIAL IVP SCH ×2 (06:16→18:48)
[2020-09-08] MEDS: Cefepime HCl 2,000 MG in Water for inj. (sterile) 20 ML IVP SCH ×2 (06:16→18:49)
[2020-09-08] MEDS ORDERED: *HR* Propofol 200 MG/20 ML VIAL IVP ONE (09:38)
[2020-09-08] MEDS ORDERED: Lidocaine -MPF 2% 5 ML VIAL SQ ONE (09:38)
[2020-09-08] MEDS: QUEtiapine Fumarate 25 MG TABLET PO SCH ×2 (10:05→20:25)
[2020-09-08] MEDS: lamoTRIgine 100 MG TABLET GTUBE SCH ×2 (10:05→20:25)
[2020-09-08] MEDS: metroNIDAZOLE 500 MG TABLET GTUBE SCH ×3 (10:05→20:25)
[2020-09-08] MEDS: levETIRAcetam 500 MG/5 ML UDC GTUBE SCH ×2 (10:05→20:24)
[2020-09-08] MEDS: predniSONE 20 MG TABLET GTUBE SCH (10:05)
[2020-09-08 19:47] LABS: Hematocrit 26.8 % (37.5-50.1); Hemoglobin 8.8 g/dL (12.9-16.9)
[2020-09-09] MEDS: Insulin LISPRO 300 UNITS/3 ML VIAL SUBQ SCH ×6 (00:17→20:40)
[2020-09-09] MEDS: Levalbuterol Neb 0.63 MG/3 ML IH SCH ×4 (04:40→22:34)
[2020-09-09] MEDS: Pantoprazole 40 MG VIAL IVP SCH (05:28)
[2020-09-09] MEDS: Cefepime HCl 2,000 MG in Water for inj. (sterile) 20 ML IVP SCH ×2 (05:29→16:56)
[2020-09-09 07:26] LABS: Basophils # 0.1 K/mcL (0.0-0.2); Basophils % 0.4 %; Eosinophils % 0.2 %; Hematocrit 26.7 % (37.5-50.1); Hemoglobin 8.6 g/dL (12.9-16.9); Immature Granulocytes % 1.2 % (0-4); Lymphocytes # 2.9 K/mcL (0.6-4.6); Lymphocytes % 23.8 %; Mean Corpuscular HGB Conc 32.2 g/dL (31.6-35.5); Mean Corpuscular Hemoglobin 27.3 pg (28.0-33.3); Mean Corpuscular Volume 84.8 fL (83.0-100.0); Mean Platelet Volume 10.9 fL (9.4-12.4); Monocytes # 1.4 K/mcL (0.0-1.3); Monocytes % 11.9 %; Neutrophils # 7.5 K/mcL (1.6-8.9); Platelet Count 463 K/mcL (140-400); Red Blood Count 3.15 M/mcL (4.19-5.50); Red Cell Distribution Width 17.6 % (11.5-14.5); Segmented Neutrophils % 62.5 %; White Blood Count 12.1 K/mcL (4.3-11.1)
[2020-09-09] MEDS: predniSONE 20 MG TABLET GTUBE SCH (09:23)
[2020-09-09] MEDS: metroNIDAZOLE 500 MG TABLET GTUBE SCH ×3 (09:23→20:09)
[2020-09-09] MEDS: lamoTRIgine 100 MG TABLET GTUBE SCH ×2 (09:23→20:09)
[2020-09-09] MEDS: levETIRAcetam 500 MG/5 ML UDC GTUBE SCH ×2 (09:23→20:09)
[2020-09-09] MEDS: QUEtiapine Fumarate 25 MG TABLET PO SCH ×2 (09:24→20:09)
[2020-09-09 10:56] LABS: BUN/Creatinine Ratio 25 (6-26); Blood Urea Nitrogen 16 mg/dL (8-23); Carbon Dioxide 24 mEq/L (23-29); Chloride 102 mEq/L (98-107); Glucose 111 mg/dL (70-105); Magnesium 1.6 mg/dL (1.6-2.6); Osmolality,Calculated 288 (280-300); Potassium 4.5 mEq/L (3.5-5.1); Sodium 138 mEq/L (136-145); eGFR For African Americans > 60 (> 60); eGFR For Non-African Americans > 60 (> 60)
[2020-09-10] MEDS: Insulin LISPRO 300 UNITS/3 ML VIAL SUBQ SCH ×6 (01:37→20:55)
[2020-09-10] MEDS: Levalbuterol Neb 0.63 MG/3 ML IH SCH ×4 (03:42→22:45)
[2020-09-10 04:46] LABS: Basophils % 0.2 %; Eosinophils % 0.2 %; Hematocrit 25.5 % (37.5-50.1); Lymphocytes # 2.8 K/mcL (0.6-4.6); Lymphocytes % 23.9 %; Mean Corpuscular HGB Conc 31.4 g/dL (31.6-35.5); Mean Corpuscular Hemoglobin 27.2 pg (28.0-33.3); Mean Corpuscular Volume 86.7 fL (83.0-100.0); Mean Platelet Volume 10.3 fL (9.4-12.4); Monocytes # 1.2 K/mcL (0.0-1.3); Monocytes % 10.2 %; Neutrophils # 7.5 K/mcL (1.6-8.9); Platelet Count 522 K/mcL (140-400); Red Blood Count 2.94 M/mcL (4.19-5.50); Red Cell Distribution Width 17.5 % (11.5-14.5); Segmented Neutrophils % 64.5 %; White Blood Count 11.6 K/mcL (4.3-11.1)
[2020-09-10 05:05] LABS: BUN/Creatinine Ratio 34 (6-26); Blood Urea Nitrogen 20 mg/dL (8-23); Calcium 8.6 mg/dL (8.6-10.3); Carbon Dioxide 31 mEq/L (23-29); Chloride 98 mEq/L (98-107); Glucose 121 mg/dL (70-105); Magnesium 1.6 mg/dL (1.6-2.6); Osmolality,Calculated 282 (280-300); Phosphorous 2.4 mg/dL (2.7-4.5); Potassium 3.8 mEq/L (3.5-5.1); Sodium 134 mEq/L (136-145); eGFR For African Americans > 60 (> 60); eGFR For Non-African Americans > 60 (> 60)
[2020-09-10] MEDS: Cefepime HCl 2,000 MG in Water for inj. (sterile) 20 ML IVP SCH ×2 (06:34→18:37)
[2020-09-10] MEDS: QUEtiapine Fumarate 25 MG TABLET PO SCH ×2 (09:27→20:54)
[2020-09-10] MEDS: levETIRAcetam 500 MG/5 ML UDC GTUBE SCH ×2 (09:27→20:54)
[2020-09-10] MEDS: Pantoprazole 40 MG VIAL IVP SCH (09:28)
[2020-09-10] MEDS: metroNIDAZOLE 500 MG TABLET GTUBE SCH ×3 (09:28→20:54)
[2020-09-10] MEDS: lamoTRIgine 100 MG TABLET GTUBE SCH ×2 (09:28→20:54)
[2020-09-10] MEDS: predniSONE 20 MG TABLET GTUBE SCH (09:28)
[2020-09-11] MEDS: Insulin LISPRO 300 UNITS/3 ML VIAL SUBQ SCH ×6 (00:08→21:05)
[2020-09-11] MEDS: Levalbuterol Neb 0.63 MG/3 ML IH SCH ×4 (04:18→22:13)
[2020-09-11] MEDS: Cefepime HCl 2,000 MG in Water for inj. (sterile) 20 ML IVP SCH ×2 (05:57→16:58)
[2020-09-11] MEDS: predniSONE 20 MG TABLET GTUBE SCH (09:14)
[2020-09-11] MEDS: lamoTRIgine 100 MG TABLET GTUBE SCH ×2 (09:14→21:05)
[2020-09-11] MEDS: QUEtiapine Fumarate 25 MG TABLET PO SCH ×2 (09:14→21:05)
[2020-09-11] MEDS: metroNIDAZOLE 500 MG TABLET GTUBE SCH ×3 (09:14→21:05)
[2020-09-11] MEDS: Pantoprazole 40 MG VIAL IVP SCH (09:15)
[2020-09-11] MEDS: levETIRAcetam 500 MG/5 ML UDC GTUBE SCH ×2 (09:15→21:05)
[2020-09-11 11:37] LABS: BUN/Creatinine Ratio 28 (6-26); Blood Urea Nitrogen 17 mg/dL (8-23); Calcium 8.7 mg/dL (8.6-10.3); Carbon Dioxide 30 mEq/L (23-29); Chloride 104 mEq/L (98-107); Glucose 202 mg/dL (70-105); Magnesium 1.7 mg/dL (1.6-2.6); Osmolality,Calculated 293 (280-300); Phosphorous 2.7 mg/dL (2.7-4.5); Potassium 3.6 mEq/L (3.5-5.1); Sodium 138 mEq/L (136-145); eGFR For African Americans > 60 (> 60); eGFR For Non-African Americans > 60 (> 60)
[2020-09-11 11:42] LABS: Basophils % 0.4 %; Eosinophils # 0.1 K/mcL (0.0-0.6); Eosinophils % 0.7 %; Hematocrit 25.1 % (37.5-50.1); Hemoglobin 7.9 g/dL (12.9-16.9); Immature Granulocytes % 0.9 % (0-4); Lymphocytes # 1.6 K/mcL (0.6-4.6); Lymphocytes % 15.6 %; Mean Corpuscular HGB Conc 31.5 g/dL (31.6-35.5); Mean Corpuscular Hemoglobin 27.3 pg (28.0-33.3); Mean Corpuscular Volume 86.9 fL (83.0-100.0); Mean Platelet Volume 10.3 fL (9.4-12.4); Monocytes # 0.9 K/mcL (0.0-1.3); Monocytes % 8.1 %; Neutrophils # 7.9 K/mcL (1.6-8.9); Platelet Count 493 K/mcL (140-400); Red Blood Count 2.89 M/mcL (4.19-5.50); Red Cell Distribution Width 17.4 % (11.5-14.5); Segmented Neutrophils % 74.3 %; White Blood Count 10.5 K/mcL (4.3-11.1)
[2020-09-12] MEDS: Insulin LISPRO 300 UNITS/3 ML VIAL SUBQ SCH ×6 (00:16→20:00)
[2020-09-12] MEDS: Levalbuterol Neb 0.63 MG/3 ML IH SCH ×4 (04:00→22:32)
[2020-09-12] MEDS: Cefepime HCl 2,000 MG in Water for inj. (sterile) 20 ML IVP SCH ×2 (05:39→18:08)
[2020-09-12 06:16] LABS: Basophils % 0.3 %; Eosinophils # 0.1 K/mcL (0.0-0.6); Hematocrit 28.9 % (37.5-50.1); Immature Granulocytes % 1.1 % (0-4); Lymphocytes # 3.3 K/mcL (0.6-4.6); Lymphocytes % 36.2 %; Mean Corpuscular HGB Conc 31.1 g/dL (31.6-35.5); Mean Corpuscular Hemoglobin 26.9 pg (28.0-33.3); Mean Corpuscular Volume 86.3 fL (83.0-100.0); Mean Platelet Volume 10.1 fL (9.4-12.4); Monocytes # 0.8 K/mcL (0.0-1.3); Monocytes % 8.6 %; Neutrophils # 4.8 K/mcL (1.6-8.9); Platelet Count 533 K/mcL (140-400); Red Blood Count 3.35 M/mcL (4.19-5.50); Red Cell Distribution Width 17.2 % (11.5-14.5); Segmented Neutrophils % 52.8 %; White Blood Count 9.1 K/mcL (4.3-11.1)
[2020-09-12 06:39] LABS: BUN/Creatinine Ratio 33 (6-26); Blood Urea Nitrogen 19 mg/dL (8-23); Calcium 9.1 mg/dL (8.6-10.3); Carbon Dioxide 31 mEq/L (23-29); Chloride 102 mEq/L (98-107); Glucose 99 mg/dL (70-105); Magnesium 1.9 mg/dL (1.6-2.6); Osmolality,Calculated 288 (280-300); Phosphorous 2.6 mg/dL (2.7-4.5); Potassium 4.3 mEq/L (3.5-5.1); Sodium 138 mEq/L (136-145); eGFR For African Americans > 60 (> 60); eGFR For Non-African Americans > 60 (> 60)
[2020-09-12] MEDS: predniSONE 20 MG TABLET GTUBE SCH (08:19)
[2020-09-12] MEDS: levETIRAcetam 500 MG/5 ML UDC GTUBE SCH ×2 (08:19→20:05)
[2020-09-12] MEDS: Pantoprazole 40 MG VIAL IVP SCH (08:19)
[2020-09-12] MEDS: QUEtiapine Fumarate 25 MG TABLET PO SCH ×2 (08:19→20:05)
[2020-09-12] MEDS: lamoTRIgine 100 MG TABLET GTUBE SCH ×2 (08:19→20:05)
[2020-09-12] MEDS: metroNIDAZOLE 500 MG TABLET GTUBE SCH ×3 (08:19→20:05)
[2020-09-13] MEDS: Insulin LISPRO 300 UNITS/3 ML VIAL SUBQ SCH ×6 (00:04→20:49)
[2020-09-13] MEDS: Levalbuterol Neb 0.63 MG/3 ML IH SCH ×4 (03:43→22:02)
[2020-09-13] MEDS: Cefepime HCl 2,000 MG in Water for inj. (sterile) 20 ML IVP SCH ×2 (07:03→17:48)
[2020-09-13] MEDS: predniSONE 20 MG TABLET GTUBE SCH (08:54)
[2020-09-13] MEDS: lamoTRIgine 100 MG TABLET GTUBE SCH ×2 (08:54→20:49)
[2020-09-13] MEDS: levETIRAcetam 500 MG/5 ML UDC GTUBE SCH ×2 (08:54→20:49)
[2020-09-13] MEDS: QUEtiapine Fumarate 25 MG TABLET PO SCH ×2 (08:54→20:49)
[2020-09-13] MEDS: metroNIDAZOLE 500 MG TABLET GTUBE SCH ×2 (08:54→16:42)
[2020-09-13] MEDS: Pantoprazole 40 MG VIAL IVP SCH (08:54)
[2020-09-13 09:32] LABS: Basophils # 0.1 K/mcL (0.0-0.2); Basophils % 0.5 %; Eosinophils # 0.1 K/mcL (0.0-0.6); Eosinophils % 1.4 %; Hematocrit 27.6 % (37.5-50.1); Hemoglobin 8.4 g/dL (12.9-16.9); Immature Granulocytes % 0.9 % (0-4); Lymphocytes # 2.6 K/mcL (0.6-4.6); Lymphocytes % 25.4 %; Mean Corpuscular HGB Conc 30.4 g/dL (31.6-35.5); Mean Corpuscular Hemoglobin 26.5 pg (28.0-33.3); Mean Corpuscular Volume 87.1 fL (83.0-100.0); Mean Platelet Volume 10.2 fL (9.4-12.4); Monocytes % 9.5 %; Neutrophils # 6.5 K/mcL (1.6-8.9); Platelet Count 465 K/mcL (140-400); Red Blood Count 3.17 M/mcL (4.19-5.50); Red Cell Distribution Width 16.9 % (11.5-14.5); Segmented Neutrophils % 62.3 %; White Blood Count 10.4 K/mcL (4.3-11.1)
[2020-09-13 10:00] LABS: BUN/Creatinine Ratio 33 (6-26); Blood Urea Nitrogen 18 mg/dL (8-23); Calcium 8.8 mg/dL (8.6-10.3); Carbon Dioxide 31 mEq/L (23-29); Chloride 98 mEq/L (98-107); Glucose 127 mg/dL (70-105); Magnesium 1.8 mg/dL (1.6-2.6); Osmolality,Calculated 281 (280-300); Phosphorous 2.7 mg/dL (2.7-4.5); Potassium 4.3 mEq/L (3.5-5.1); Sodium 134 mEq/L (136-145); eGFR For African Americans > 60 (> 60); eGFR For Non-African Americans > 60 (> 60)
[2020-09-14] MEDS: Insulin LISPRO 300 UNITS/3 ML VIAL SUBQ SCH ×6 (00:34→20:26)
[2020-09-14] MEDS: Levalbuterol Neb 0.63 MG/3 ML IH SCH ×4 (03:52→22:16)
[2020-09-14 05:14] LABS: Basophils % 0.3 %; Eosinophils # 0.2 K/mcL (0.0-0.6); Eosinophils % 1.6 %; Hematocrit 25.3 % (37.5-50.1); Hemoglobin 7.8 g/dL (12.9-16.9); Immature Granulocytes % 0.9 % (0-4); Lymphocytes # 2.9 K/mcL (0.6-4.6); Lymphocytes % 30.5 %; Mean Corpuscular HGB Conc 30.8 g/dL (31.6-35.5); Mean Corpuscular Hemoglobin 26.6 pg (28.0-33.3); Mean Corpuscular Volume 86.3 fL (83.0-100.0); Mean Platelet Volume 10.1 fL (9.4-12.4); Monocytes # 0.9 K/mcL (0.0-1.3); Monocytes % 9.2 %; Neutrophils # 5.6 K/mcL (1.6-8.9); Platelet Count 447 K/mcL (140-400); Red Blood Count 2.93 M/mcL (4.19-5.50); Red Cell Distribution Width 16.8 % (11.5-14.5); Segmented Neutrophils % 57.5 %; White Blood Count 9.7 K/mcL (4.3-11.1)
[2020-09-14 05:32] LABS: BUN/Creatinine Ratio 33 (6-26); Blood Urea Nitrogen 17 mg/dL (8-23); Calcium 8.7 mg/dL (8.6-10.3); Carbon Dioxide 33 mEq/L (23-29); Chloride 100 mEq/L (98-107); Glucose 114 mg/dL (70-105); Magnesium 1.9 mg/dL (1.6-2.6); Osmolality,Calculated 284 (280-300); Potassium 4.3 mEq/L (3.5-5.1); Sodium 136 mEq/L (136-145); eGFR For African Americans > 60 (> 60); eGFR For Non-African Americans > 60 (> 60)
[2020-09-14] MEDS: levETIRAcetam 500 MG/5 ML UDC GTUBE SCH ×2 (09:26→22:02)
[2020-09-14] MEDS: predniSONE 20 MG TABLET GTUBE SCH (09:26)
[2020-09-14] MEDS: lamoTRIgine 100 MG TABLET GTUBE SCH ×2 (09:26→22:02)
[2020-09-14] MEDS: QUEtiapine Fumarate 25 MG TABLET PO SCH ×2 (09:26→22:02)
[2020-09-14] MEDS: Pantoprazole 40 MG VIAL IVP SCH (09:27)
[2020-09-14] MEDS ORDERED: Insulin LISPRO 300 UNITS/3 ML VIAL SUBQ SCH (20:00)
[2020-09-15] MEDS: Insulin LISPRO 300 UNITS/3 ML VIAL SUBQ SCH ×3 (01:08→09:28)
[2020-09-15] MEDS: Levalbuterol Neb 0.63 MG/3 ML IH SCH ×2 (03:56→09:58)
[2020-09-15] MEDS ORDERED: Acetaminophen IV 1,000 MG/100 ML BAG IVPB ONE (04:29)
[2020-09-15 07:35] LABS: Basophils # 0.1 K/mcL (0.0-0.2); Basophils % 0.6 %; Eosinophils # 0.2 K/mcL (0.0-0.6); Eosinophils % 2.5 %; Hematocrit 27.3 % (37.5-50.1); Hemoglobin 8.3 g/dL (12.9-16.9); Immature Granulocytes % 1.2 % (0-4); Lymphocytes # 3.1 K/mcL (0.6-4.6); Lymphocytes % 36.3 %; Mean Corpuscular HGB Conc 30.4 g/dL (31.6-35.5); Mean Corpuscular Hemoglobin 26.2 pg (28.0-33.3); Mean Corpuscular Volume 86.1 fL (83.0-100.0); Mean Platelet Volume 10.2 fL (9.4-12.4); Monocytes # 0.9 K/mcL (0.0-1.3); Neutrophils # 4.2 K/mcL (1.6-8.9); Platelet Count 478 K/mcL (140-400); Red Blood Count 3.17 M/mcL (4.19-5.50); Red Cell Distribution Width 16.6 % (11.5-14.5); Segmented Neutrophils % 49.4 %; White Blood Count 8.5 K/mcL (4.3-11.1)
[2020-09-15 07:49] LABS: BUN/Creatinine Ratio 31 (6-26); Blood Urea Nitrogen 17 mg/dL (8-23); Calcium 9.2 mg/dL (8.6-10.3); Carbon Dioxide 34 mEq/L (23-29); Chloride 99 mEq/L (98-107); Glucose 113 mg/dL (70-105); Magnesium 1.8 mg/dL (1.6-2.6); Osmolality,Calculated 284 (280-300); Phosphorous 3.9 mg/dL (2.7-4.5); Potassium 4.4 mEq/L (3.5-5.1); Sodium 136 mEq/L (136-145); eGFR For African Americans > 60 (> 60); eGFR For Non-African Americans > 60 (> 60)
[2020-09-15] MEDS: levETIRAcetam 500 MG/5 ML UDC GTUBE SCH (09:27)
[2020-09-15] MEDS: predniSONE 20 MG TABLET GTUBE SCH (09:27)
[2020-09-15] MEDS: lamoTRIgine 100 MG TABLET GTUBE SCH (09:27)
[2020-09-15] MEDS: QUEtiapine Fumarate 25 MG TABLET PO SCH (09:27)
[2020-09-15] MEDS: Pantoprazole 40 MG VIAL IVP SCH (09:28)
[2020-09-15 10:39] VITALS: BP 105/61
[2020-09-15 10:40] LABS: Adenovirus Not Detected (Not Detect); Bordetella Pertussis Not Detected (Not Detect); Chlamydophila pneumoniae Not Detected (Not Detect); Coronavirus 229E Not Detected (Not Detect); Coronavirus HKU1 Not Detected (Not Detect); Coronavirus NL63 Not Detected (Not Detect); Coronavirus OC43 Not Detected (Not Detect); Human Metapneumovirus Not Detected (Not Detect); Human Rhinovirus/Enterovirus Not Detected (Not Detect); Influenza A Subtype 2009 H1 Not Detected (Not Detect); Influenza B Not Detected (Not Detect); Mycoplasma pneumoniae Not Detected (Not Detect); Parainfluenza Virus 1 Not Detected (Not Detect); Parainfluenza Virus 2 Not Detected (Not Detect); Parainfluenza Virus 3 Not Detected (Not Detect); Parainfluenza Virus 4 Not Detected (Not Detect); Respiratory Syncytial Virus Not Detected (Not Detect); SARS-CoV-2 Not Detected (Not Detect)
== END 2020-09-15 12:09 | DRG 870 ==
LOC: ICNU 08-21 00:25 → SUATTDRO 08-21 00:25 → 2NNU 08-31 19:14 → 3ANU 09-03 15:18
PROVIDERS: ADMIT Internal Medicine; ATTEND Pharmacist